=== PATIENT | female | born 1935 | race Caucasian/White ===

== ENCOUNTER 2023-11-14 09:00 | Observation (INO) | payer MEDICARE, SELFPAY ==
[2023-11-14 09:01] VITALS: BP 117/74; PULSE 83; RESP 16; TEMP 36.6; O2SAT 95; BMI 23.3
--- NOTE | 2023-11-14 09:22 | EX.ED.DYSGE1 ---
HPI History of Present Illness Chief Complaint: Other, Pain/Inj Detail of Chief Complaint: I hurt all over, and I fear that you said be home because there is nothin Informant: patient Onset/Context/Timing Onset: Days and Weeks Timing: Continuous Quality: Pain Location: Total body Current Severity: Mild Maximum Severity: Severe Worsened by: Nothing Relieved by: Nothing Associated Symptoms Associated Symptoms: Difficulty performing activities of daily living Narrative Narrative: patient is a 88-year-old woman. She is seen by Dr. Martino for pain management. She is on Percocet. When asked why she was prescribed Percocet patient told me how many 5 mg tablets she takes per day. She was asked specifically what her diagnosis is and she could not answer my question. Patient is an 88-year-old woman with history of hypothyroidism, peptic ulcer disease, hypertension who has lived alone for the past 3 years. Patient states he is only able to clean her house once every 2 weeks because of the pain. She has not been eating well. She states she awakes every 2 hours. She does admit to weight loss. She states she is lost a couple of pounds. Patient began to cry and states her greatest fear is that I would tell her there is nothing wrong and would send her home. Patient was prescribed Cymbalta by Dr. Martino. She discontinued this 1 week ago. Prior similar symptoms: Yes Recent Illness/Hospitalization: No [facility] PEND[facility] S[facility] TO [facility] Medical History (Updated 11/14/23 @ 12:[address] Srikanth Ocampo MD) Peptic ulcer disease Hypothyroidism Hypertension Chronic pain Home Medications ?Medication ?Instructions ?Recorded ?Last Taken ?Type Ranitidine [Zantac] 150 mg PO DAILY 12/19/13 Unknown History amlodipine 2.5 mg tablet 2.5 mg PO DAILY 12/19/13 Unknown History amoxicillin 500 mg capsule 500 mg PO Q8H 3 days 12/19/13 Unknown Rx cholecalciferol (vitamin D3) 25 1,000 unit PO DAILY 12/19/13 Unknown History mcg (1,000 unit) tablet (Vitamin D3) fluoxetine 20 mg capsule 20 mg PO BID 12/19/13 Unknown History levothyroxine 75 mcg tablet 75 mcg PO DAILY 12/19/13 Unknown History (Levoxyl) losartan 25 mg tablet 25 mg PO DAILY 12/19/13 Unknown History Allergy/AdvReac Type Severity Reaction Status Date / Time No Known Allergies Allergy Verified 12/19/13 19:33 Social History (Updated 11/14/23 @ 09:[address] Srikanth Ocampo MD) household members: none Smoking Status: Never smoker substance use type: does not use ROS ROS ED Constitutional Constitutional ED: Reports chills and weight loss; Denies fever(s), subjective or sweats Eyes Eyes: Denies blurry vision, change in vision or diplopia ENT ENT ED: Denies ear pain, rhinorrhea or sore throat Cardiovascular Cardiovascular: Denies chest pain or palpitations Respiratory/Chest Respiratory/Chest: Denies cough, dyspnea or dyspnea on exertion Gastrointestinal Gastrointestinal: Denies abdominal pain, nausea or vomiting Genitourinary Genitourinary ED: Denies dysuria, hematuria or urinary frequency Musculoskeletal Musculoskeletal: Denies back pain or neck pain Neurologic Neurologic: Reports weakness; Denies paresthesias Psychiatric Psychiatric: Reports anxiety and depression; Denies suicidal ideation Endocrine Endocrinology: Reports cold intolerance; Denies heat intolerance Hematologic/Lymphatic Hematologic/Lymphatic: Reports systems reviewed and no addt'l complaints, except as documented EXAM Physical Exam Const Vital Signs: 11/14/23 09:01 11/14/23 11:00 Temperature 97.8 F Temperature Source Oral Pulse Rate 83 Respiratory Rate 16 Blood Pressure 117/74 121/84 H Blood Pressure Mean 88 96 Pulse Ox 95 Oxygen Delivery Method Room Air Positive well nourished and well developed General Appearance ED: well developed and NAD; Negative for pallor HEENT Reports dry mucous membranes HEENT Narrative: Head is atraumatic and normocephalic. Ears normal. Nares patent. Mouth ED: Yes dry mucous membranes Mouth: dry mucous membranes Eyes PERRL and EOMs intact bilaterally General Eye ED: Negative for pale conjunctiva or scleral icterus Neck no lymphadenopathy, supple and no JVD Chest Wall inspection of chest normal and palpation of chest normal Resp normal respiratory effort and clear to auscultation bilaterally Cardio regular rate, regular rhythm, S1 normal heart sound, S2 normal heart sound and no murmurs GI normal to inspection, nondistended, normoactive bowel sounds, non-tender, non-distended and no masses; Negative for hepatosplenomegaly Back/Spine no CVA tenderness Back/Spine Narrative: Inspection of the back is normal. Patient recently had x-rays which were unremarkable. Extremity normal to inspection Neuro oriented x3, CN's II-XII intact bilaterally and no sensory deficits noted Sensorium / Orientation: alert Motor Exam: strength 5/5 throughout Psych Mood & Affect: depressed and tearful Skin no rashes or lesions noted, no wounds and No skin turgor normal General Skin Exam: Negative for jaundice or pallor MDM MDM MDM Narrative Medical decision making narrative: Suspect patient is depressed. Her depression is worse due to noncompliance and no support system. Will obtain case management evaluation. Since she has hypothyroidism will obtain TSH since level has not been checked for some time based on review of prior records. Blood work was also obtained to assess for any metabolic or infectious etiology of her symptoms. My opinion this is all related to depression. History & Record Review Additional record(s) reviewed:: Prior outpatient record and Prior ED visit Lab Data Attestation: I reviewed the patient's lab results. Lab results narrative: CBC is remarkable for mild anemia with normal indices. Basic metabolic panel is remarkable slight elevation BUN/creatinine of 26 and 1.23. Glucose is slightly elevated 115 with a normal CO2 and intact anion gap. TSH is normal. UA reveals evidence of infection. Patient has 50-100 WBCs and 1+ bacteria. There is no epithelial cells noted. There is also ketones noted. This would not explain her symptoms. Labs: Laboratory Results - last 24 hr 11/14/23 11/14/23 09:30 10:49 WBC 9.3 RBC 3.90 L Hgb 11.8 L Hct 36.9 L MCV 94.6 MCH 30.3 MCHC 32.0 RDW Std Deviation 44.3 H RDW Coeff of [place]agar 12.7 Plt Count 180 MPV 9.4 Immature Gran % (Auto) 0.500 Neut % (Auto) 72.4 H Lymph % (Auto) 18.2 L [place] % (Auto) 8.5 Eos % (Auto) 0.2 Baso % (Auto) 0.2 Absolute Neuts (auto) 6.7 Absolute Lymphs (auto) 1.68 Nucleated RBC % 0 Sodium 132 L Potassium 3.9 Chloride 101 Carbon Dioxide 24.0 Anion Gap 7 BUN 26 H Creatinine 1.23 H Estim Creat Clear Calc 23.15 Est GFR (MDRD) Af Amer 53 L Est GFR (MDRD) Non-Af 44 L BUN/Creatinine Ratio 21.1 H Glucose 115 H Calcium 10.1 TSH 1.820 Urine Color Yellow Urine Clarity Clear Urine pH 6.0 Ur Specific R[place] 1.010 Urine Protein 30 H Urine Glucose (UA) Normal Urine Ketones 15 H Urine Occult Blood 25 H Urine Nitrite Negative Urine Bilirubin Negative Urine Urobilinogen Normal Ur Leukocyte Esterase 100 H Urine RBC 0 SEEN Urine WBC 50-100 SEEN Ur Squamous Epith Cells 0 SEEN Urine Bacteria 1+ Urine Mucus 0 SEEN Management Discussion w/another healthcare provider: optical goods worker/Case management (Case management is in agreement patient is depressed. They are concerned for her safety going home alone. They discussed hospice, apparently consult was placed by Saul Hdz in May. Patient is unwilling over hospice care since that time. Patient's October 14 3 years ago. Appare) Treatment and Re-Evaluation :: Since patient's creatinine clearance is greater than 30 there is no need for dose adjustment of Bactrim. Since this is an uncomplicated UTI treatment is 3 to 5 days. Patient received her first dose in the emergency department. Anthony from case management is present reviewing her chart. (2299) Discharge Plan Triage Chief Complaint: Other, Pain/Inj ED Provider: Srikanth Ocampo Dx/Rx/DC Orders Clinical Impression: Major depression, Chronic pain, Hypertension, Hypothyroidism, Acute cystitis, Difficulty in walking Instructions: Chronic Pain Therapies Mind Body, ED Depression, ED Cystitis Female Adult Prescriptions: No Action amlodipine 2.5 MG tablet 2.5 mg PO DAILY levothyroxine [Levoxyl] 75 MCG tablet 75 mcg PO DAILY losartan 25 MG tablet 25 mg PO DAILY fluoxetine 20 MG capsule 20 mg PO BID cholecalciferol (vitamin D3) [Vitamin D3] 1,000 UNIT tablet 1,000 unit PO DAILY Ranitidine [Zantac] 150 MG tablet 150 mg PO DAILY amoxicillin 500 MG capsule 500 mg PO Q8H 3 Days 0RF Primary Care Provider: Madeline Kuhn Referrals: NOT,DEFINED [Non-Staff] - Print Language: Cypriot Disposition Disposition: Acute Care Hospital [facility]
[2023-11-14 09:46] LABS: Absolute Lymphocyte Count 1.68 X10^3/uL (0.83-4.51); Absolute Neutrophil Count 6.7 X10^3/uL (2.0-7.7); Basophil# 0.02 X10^3/uL; Basophil% 0.2 % (0-1); Eosinophil# 0.02 X10^3/uL; Eosinophils% 0.2 % (0-5); Hematocrit 36.9 % (37-47); Hemoglobin 11.8 g/dL (12.0-15.0); Lymphocyte # 1.68 X10^3/ul (0.83-4.51); Lymphocyte % 18.2 % (19-41); Mean Corpuscular Hgb 30.3 pg (27.0-32.0); Mean Corpuscular Volume 94.6 fL (81-99); Mean Platelet Vol. 9.4 fl (6.2-12.0); Monocyte# 0.79 X10^3/uL; Monocyte% 8.5 % (0-10); NRBC Flagged by Analyzer 0 % (0-5); Neutrophil # 6.69 X10^3/uL (2.7-7.7); Neutrophil % 72.4 % (47-70); Platelet Count 180 K/mm3 (150-450); RBC Distribution Width CV 12.7 % (11.6-14.6); RBC Distribution Width SD 44.3 fl (35.1-43.9); White Blood Count 9.3 K/mm3 (4.4-11.0)
[2023-11-14 10:05] LABS: Anion Gap 7 (5-15); BUN 26 mg/dL (7-18); BUN/Creat Ratio 21.1 RATIO (10-20); Calcium,Total 10.1 mg/dL (8.5-10.1); Chloride 101 mmol/L (98-107); Creatinine, Serum 1.23 mg/dL (0.55-1.02); EST Glomerular Filtration Rate 44 mL/min (>60); Est Glom Filt Rate - Afr Amer 53 mL/min (>60); Estimated Creatinine Clearance 23.15 ml/min; Glucose 115 mg/dL (74-106); Potassium 3.9 mmol/L (3.5-5.1); Sodium Level 132 mmol/L (136-145)
[2023-11-14 11:00] VITALS: BP 121/84
[2023-11-14 11:01] LABS: Mucous, Urine 0 SEEN /hpf (<or=2+); Red Blood Cells-Urine 0 SEEN /hpf (0-5); Squamous Epithelial Cells - UA 0 SEEN /hpf (5-10)
[2023-11-14 11:04] LABS: Color, Urine Yellow (Yellow); Glucose, Dipstick Normal (Normal); Ketone-Dipstick 15 mg/dl (Negative); Leukocyte Esterase-Dipstick 100 /ul (Negative); Nitrite-Dipstick Negative (Negative); Occult Blood-Urine 25 /ul (Negative); Protein-Dipstick 30 mg/dl (Negative); Urine Bilirubin Dipstick Negative (Negative); Urine Clarity Clear (Clear); Urine Urobilinogen Normal (Normal)
[2023-11-14 11:16] LABS: Bacteria 1+ /hpf (None Seen); White Blood Cells 50-100 SEEN /hpf (0-5)
[2023-11-14] MEDS: Smz/Tmp Ds Tablet 1 TABLET PO (12:54)
--- NOTE | 2023-11-14 12:59 | PCM.HP.STD ---
HPI - General General Date of Admission: 11/14/23 Date of Service: 11/14/23 Chief Complaint: Chronic diffuse pain all over, getting worse. Inability to do ADL HPI Narrative GIANNI ORDOÑEZ, is a 88 F with history of chronic pain on opioids since last part of 2022, follows Dr. Martino came to ED for severe worsening of pain for last 3 days. Son also present in the patient room. Her chronic pain started with shoulder pain January 2023 which was managed by PCP with intermittent low-dose opioids but when she required opioids in chronic and persistent was referred to Dr. Martino. She refilled 60 tablets of Percocet on 27 October and she still has few pills left. She came to ER because she was requiring more pill over the weekend and she was afraid that she will run out of it. No acute issues of fever, burning micturition, fall. As per son she has severe pain and could not move last weekend for 1 to 2 days and then she felt little better and was able to move on past Monday. [facility] Medical History Anxiety Depression Non-smoker Pituitary abnormality Migraines Peptic ulcer disease Hypothyroidism Hypertension Chronic pain Home Medications ?Medication ?Instructions ?Recorded ?Last Taken ?Type losartan 25 mg tablet 25 mg PO DAILY 12/19/13 11/14/23 History amlodipine 5 mg tablet 5 mg PO DAILY 11/14/23 11/14/23 History levothyroxine 50 mcg tablet 50 mcg PO SUTUTHSA 11/14/23 11/14/23 History levothyroxine 50 mcg tablet 75 mcg PO MOWEFR 11/14/23 11/13/23 History oxybutynin chloride 5 mg 5 mg PO DAILY 11/14/23 11/14/23 History tablet,extended release 24 hr oxycodone-acetaminophen 5 mg-325 1 tab PO BID PRN pain 11/14/23 11/14/23 History mg tablet pantoprazole 20 mg tablet,delayed 20 mg PO DAILY 11/14/23 11/14/23 History release Allergy/AdvReac Type Severity Reaction Status Date / Time No Known Allergies Allergy Verified 12/19/13 19:33 Surgical History H/O spinal fusion History of parathyroid surgery History of appendectomy Social History household members: none Smoking Status: Never smoker substance use type: does not use ROS ROS Narrative Constitutional: Reports fatigue and weakness. No fever. HEENT: Reports systems reviewed and no addt'l complaints, except as documented Respiratory/Chest: No acute shortness of breath or respiratory distress or wheezing. CVS: No chest pain anginal-like symptoms. Gastrointestinal: Denies coffee ground emesis, hematemesis or vomiting Genitourinary: Denies burning urination or new urinary tract symptoms Musculoskeletal: Worsening of bone and joint pain diffuse over the weekend. No acute injury. No fall. Neurologic: Denies seizure-like symptoms. skin: No ulcer. No rash Endocrinology: Reports systems reviewed and no addt'l complaints, except as documented Hematologic/Lymphatic: Reports systems reviewed and no addt'l complaints, except as documented Rest 14 ROS are negative except as mentioned in HPI Vital Signs Vital Signs Vital Signs: 11/14/23 09:01 11/14/23 11:00 Temperature 97.8 F Temperature Source Oral Pulse Rate 83 Respiratory Rate 16 Blood Pressure 117/74 121/84 H Blood Pressure Mean 88 96 Pulse Ox 95 Oxygen Delivery Method Room Air Weight Weight: 108 lb 0.424 oz Body Mass Index (BMI) 23.3 Results Lab / Micro Data 11/14/23 09:30 11/14/23 09:30 Labs: Laboratory Results - last 24 hr 11/14/23 09:30: WBC 9.3, RBC 3.90 L, Hgb 11.8 L, Hct 36.9 L, MCV 94.6, MCH 30.3, MCHC 32.0, RDW Std Deviation 44.3 H, RDW Coeff of Sagar 12.7, Plt Count 180, MPV 9.4, Immature Gran % (Auto) 0.500, Neut % (Auto) 72.4 H, Lymph % (Auto) 18.2 L, [place] % (Auto) 8.5, Eos % (Auto) 0.2, Baso % (Auto) 0.2, Absolute Neuts (auto) 6.7, Absolute Lymphs (auto) 1.68, Nucleated RBC % 0, Sodium 132 L, Potassium 3.9, Chloride 101, Carbon Dioxide 24.0, Anion Gap 7, BUN 26 H, Creatinine 1.23 H, Estim Creat Clear Calc 23.15, Est GFR (MDRD) Af Amer 53 L, Est GFR (MDRD) Non-Af 44 L, BUN/Creatinine Ratio 21.1 H, Glucose 115 H, Calcium 10.1, TSH 1.820 11/14/23 10:49: Urine Color Yellow, Urine Clarity Clear, Urine pH 6.0, Ur Specific [place] 1.010, Urine Protein 30 H, Urine Glucose (UA) Normal, Urine Ketones 15 H, Urine Occult Blood 25 H, Urine Nitrite Negative, Urine Bilirubin Negative, Urine Urobilinogen Normal, Ur Leukocyte Esterase 100 H, Urine RBC 0 SEEN, Urine WBC 50-100 SEEN, Ur Squamous Epith Cells 0 SEEN, Urine Bacteria 1+, Urine Mucus 0 SEEN Assessment & Plan Assessment/Plan (1) Impaired mobility and ADLs: (2) Difficulty in walking: PLAN: Plan This is a 88-year-old female with chronic bone and joint pain with acute worsening in last 3 days 1. Acute worsening of chronic musculoskeletal pain with impaired ADL/mobility: Patient is nondescriptive to any particular region of pain but she says all over. Patient admitted to [facility] floor. IV fluid, pain medication ordered. PT OT and case management specialist consult for discharge planning. 2. Abnormal UA/asymptomatic bacteriuria: Patient denies burning micturition or acute or new lower urinary tract symptoms. UA shows LE 100, RBC 0, WBC 5200 cells, bacteria. Urine culture pending. Low suspicion for UTI therefore antibiotic is not started 3. Anxiety and major depression 4. Hypertension: Blood pressure is controlled 122/55, 127/66. 5. Hypothyroidism: On levothyroxine. 6.Mild hyponatremia with increased creatinine. CKD stage IV: Creatinine 1.23. Estimated creatinine clearance 23 mL/min. 90 fluid normal saline + KCl DVT prophylaxis: Lovenox 30 mg subcu daily ordered as per creatinine clearance. Living will/advanced directive/end of life care: Patient does her son present in the room is power of prosecuting attorney for him. Have living will or advanced directive. After discussion of benefits/risks procedures involved with full code, DNR CC arrest and DNR CC, the patient and her son opted for DNR CC arrest with going to be Patient doesn't want artificial life support including intubation, tube feed, ventilator and/chest compression, central venous catheter, vasopressor and DC shock if needed Total time spent in [id number] encounter in discussion of advanced directive 17 minutes. Laboratory Results 11/14/23 09:30: WBC 9.3, RBC 3.90 L, Hgb 11.8 L, Hct 36.9 L, MCV 94.6, MCH 30.3, MCHC 32.0, RDW Std Deviation 44.3 H, RDW Coeff of Sagar 12.7, Plt Count 180, MPV 9.4, Immature Gran % (Auto) 0.500, Neut % (Auto) 72.4 H, Lymph % (Auto) 18.2 L, [place] % (Auto) 8.5, Eos % (Auto) 0.2, Baso % (Auto) 0.2, Absolute Neuts (auto) 6.7, Absolute Lymphs (auto) 1.68, Nucleated RBC % 0, Sodium 132 L, Potassium 3.9, Chloride 101, Carbon Dioxide 24.0, Anion Gap 7, BUN 26 H, Creatinine 1.23 H, Estim Creat Clear Calc 23.15, Est GFR (MDRD) Af Amer 53 L, Est GFR (MDRD) Non-Af 44 L, BUN/Creatinine Ratio 21.1 H, Glucose 115 H, Calcium 10.1, TSH 1.820 11/14/23 10:49: Urine Color Yellow, Urine Clarity Clear, Urine pH 6.0, Ur Specific [place] 1.010, Urine Protein 30 H, Urine Glucose (UA) Normal, Urine Ketones 15 H, Urine Occult Blood 25 H, Urine Nitrite Negative, Urine Bilirubin Negative, Urine Urobilinogen Normal, Ur Leukocyte Esterase 100 H, Urine RBC 0 SEEN, Urine WBC 50-100 SEEN, Ur Squamous Epith Cells 0 SEEN, Urine Bacteria 1+, Urine Mucus 0 SEEN Charges/Coding Visit Charges Inpatient E&M: 96894 Init Hosp L3 Procedures Hospitalists Procedures: 31469 Advncd Care Plan 30 Min
[2023-11-14 13:00] VITALS: BP 117/74; PULSE 83
--- NOTE | 2023-11-14 13:15 | CM.ED ---
Social Work Reason for consult: Mental Health Referral Source: Dr. Ocampo Met with patient in room, introducing to self and social work role. MARIO Soria also present during conversation. Informant(s): Patient herself; son Rudy presented to room at end of conversation. Medical Providers: Saul Hdz, PCP; (pain management) Marital/Social History: after 55 plus years of marriage. 10.14.2020. 2 children: Rudy (lives in [place]) and Parker (lives in [place]). Rudy comes up every Monday and helps with groceries, checks in on patient. Patient was the oldest of 5 children, losing last sibling 2 weeks ago. Living Situation: Alone, 2 story home with patient's cat.. There is a stair lift to the second floor. Patient normally drives self. Cooks for self. Has someone to clean every 2 weeks. Support/Resources: Son who lives in [place] is described as supportive; tenuous relationship with Parker who is in [place]. Patient has neighbors, but reports is mostly alone. History: None Education and Employment History: Has a masters degree in [place], used to work as a teacher. Used to work doing [employer] as well as the [employer]. Mental Health Treatment/History: Patient reports history of depression treated with Prozac for years, which worked but then stopped. Changed to another antidepressant/cannot remember the name. Recently placed on Cymbalta by Dr. Li for pain management, but stopped this medication about a week ago. No inpatient mental treatment. Reports has never really contemplated suicide and states belief would not do it right. Shares that one of patient's sister attempted suicide by overdose but ended up sick in the hospital. Denies access to lethal means, denies any stockpiles of medications. Triggers/Stressors to mental health: Increased diffuse pain since Monday. Patient's 3 years ago in October. Prior to the 's , the had stockpiled toiletries, such as patient just used the last of the toilet paper the had purchased 3 years ago. Patient reports belief that had always thought by the time these times ran out patient would be ready to . Patient admits to being lonely, a sister just 2 weeks ago and this has increased reflection about patient's life. Patient reports to be bored at home. Asked this radio script writer if due to the pain patient is ready for hospice. Reports PCP made a referral to hospice/palliative care in May, and was told if wanted to sign up for hospice at that time patient could but never did. Coping Skills: Likes to read, and after ' printed a list of all [employer] Prize winners, and has been going through those books. Normally reads 50-60 books in a year. Risk to Self/Others: No history of violence reported or shared, though patient describes herself as an angry person, yelling at her cat all the time. Reports does not feel angry or irritable when around others. No thoughts of harm to others. Denies any current or recent thoughts of suicide, intent to , or planning for suicide. During assessment patient did ask about hospice, and informed this radio script writer there is a different between being tired and okay with dying versus wanting to actively take one's life. Patient denies wanting to take her own life. Orientation: Oriented to person, place, time, situation. Memory: Good and intact Appearance/General Behavior: clean, disheveled in bed in hospital gown. Mood/Affect: Tearful, depressed, anxious Communication Pattern: responds to questions, directable, logical Thought Process: appropriate, no A/V hallucinations General Intellectual Functioning:?? Above Average Judgment: good Insight: fair Assessment: Patient talkative and receptive to social work visit. Patient immediately voiced to licensed clinical social worker that the ED doctor wants patient to get a psychiatrist. Patient then became talkative about current perceived issues which are surrounded around patient's issues of pain. Patient share she woke up on Monday and could hardly move. Patient reports this was a significant change in functional status. Reports is prescribed 5mg of Percocet two times a day and has been taking 3-4 times a day since this pain has increased. Patient reports worry about how to manage pain as current regimen does not appear to be working, and patient will be out of what she is prescribed prior to appointment with Dr. Li. Patient also describes that has been having hot flashes, gets cold/clammy, and then has the chills. Patient shares that found this can be a side effect of Cymbalta so a reason patient stopped this. Also found on the internet these symptoms could be a sign of someone dying. Patient asked social work if patient is ready for hospice, and shared that her PCP made a referral back in May 2023. Patient talked of some efforts patient has done to check on pricing of assisted living, and from conversation appears to be in the contemplation phase of moving out of home and going into assisted living. This radio script writer did attempt education about how physical and emotional health issues can go hand in hand, can exacerbate each other. Broached that patient has had some losses lately, which could also be impacting how patient is feeling too. Note, during SW intervention, patient tried to move and started to cry out in pain, appeared to move slowly and face constricted showing what appeared to be pain cues. SW called the call light for staff assist in helping patient to move. Collaborated with Dr. Ocampo. Acknowledged that patient does appear to have stressors and depression which would benefit from outpatient mental health follow up. Both this radio script writer and provider in agreement patient not at point of need hospitalization. Discussed concern with provider that patient lives alone, has limited support in this area to have help in the home, and in room with social work appeared to have difficulty moving. Discussed patient going to assisted living or nursing facility from hospital for continued management of pain and possible therapy to to help with mobility. Patient has [employer], which does not require a 3 day stay but does require precert, should patient need or would benefit from PT/OT at discharge. Discussed safety concerns about patient returning home alone, even with intermittent HHC, in conjunction with how patient presented in room with ability to move. This radio script writer, Estella and Dr. Ocampo met with patient. Discussed having patient stay at hospital for further evaluation of pain control and therapy evaluations. Broached nursing facility, assisted living, and hospice/palliative care consult (as patient states this was initiated by Saul GARCIA in May of this year). Patient's son arrived to the room, as was called by a neighbor of the patient's. Son Rudy reports patient has been having pain for a long time now, and patient's change in status was significant on Monday. Son concerned about patient returning home alone right now, and expressed feeling hospitalization would be the safest at this moment. Much emotional support provided to patient this date. Plan: Overnight stay for PT/OT evaluation, determine possible need for NF versus assisted living. Once settled with physical care, would benefit from referral to outpatient counseling/suppor wherever patient lands for her physical care component. -CRUZ Salu
--- NOTE | 2023-11-14 13:30 | NURSING ---
PCU OBS TERELETSKY HYPERTENSIVE URGENCY, ENDORGAN DYSPFUNCTION, HALLUCINATIONS
[2023-11-14 13:44] VITALS: BP 122/55; PULSE 74; RESP 17; TEMP 36.8; O2SAT 95
--- NOTE | 2023-11-14 14:00 | CASEMGMT ---
Social Work Handoff to Tata CISNEROS regarding social work intervention in the ED. Refer to prior ED SW documentation this date for further details. Patient with reports of difficulty moving at home due to pain, lives alone and limited available support to assist. Social Work to follow. Plan: Await PT/OT results. Determine home vs assisted living vs retirement -CRUZ Saul
[2023-11-14 14:07] VITALS: BMI 22.0
[2023-11-14 14:12] VITALS: BP 127/66; PULSE 71; RESP 20; TEMP 36.9; O2SAT 94
[2023-11-14] MEDS: KCL 20MEQ in 0.9% NS 20 MEQ/1,000 ML IV.SOLN. 100 MEQ IV (16:11)
[2023-11-14] MEDS: 0.9% Saline Lock 10 ML Syringe IV (16:12)
[2023-11-14] MEDS: Enoxaparin 30 MG/0.3 ML Syringe SC (16:17)
[2023-11-14] MEDS: oxyCODONE 5 MG Tablet PO ×2 (16:17→21:04)
[2023-11-14 20:03] VITALS: BP 116/64; PULSE 89; RESP 15; TEMP 36.6; O2SAT 96
[2023-11-14] MEDS: Acetaminophen 500 MG Tablet 1000 MG PO (20:30)
[2023-11-14] MEDS: Senna/Docusate Sodium 1 Tablet 2 TABLET PO (21:05)
[2023-11-15] MEDS: oxyCODONE 5 MG Tablet PO ×5 (02:24→22:08)
[2023-11-15] MEDS: KCL 20MEQ in 0.9% NS 20 MEQ/1,000 ML IV.SOLN. 100 MEQ IV (02:24)
[2023-11-15 02:27] VITALS: BP 113/62; PULSE 63; RESP 15; TEMP 36.6; O2SAT 98
[2023-11-15] MEDS: Acetaminophen 500 MG Tablet 1000 MG PO ×3 (06:36→22:07)
[2023-11-15 07:26] LABS: Absolute Lymphocyte Count 0.83 X10^3/uL (0.83-4.51); Absolute Neutrophil Count 5.5 X10^3/uL (2.0-7.7); Basophil# 0.04 X10^3/uL; Basophil% 0.5 % (0-1); Eosinophil# 0.05 X10^3/uL; Eosinophils% 0.7 % (0-5); Hematocrit 36.5 % (37-47); Hemoglobin 11.6 g/dL (12.0-15.0); Lymphocyte # 0.83 X10^3/ul (0.83-4.51); Lymphocyte % 11.3 % (19-41); Mean Corp Hgb Conc 31.8 g/dL (32-36); Mean Corpuscular Hgb 30.2 pg (27.0-32.0); Mean Corpuscular Volume 95.1 fL (81-99); Mean Platelet Vol. 9.9 fl (6.2-12.0); Monocyte# 0.83 X10^3/uL; Monocyte% 11.3 % (0-10); NRBC Flagged by Analyzer 0 % (0-5); Neutrophil # 5.54 X10^3/uL (2.7-7.7); Neutrophil % 75.7 % (47-70); Platelet Count 175 K/mm3 (150-450); RBC Distribution Width CV 12.7 % (11.6-14.6); RBC Distribution Width SD 44.4 fl (35.1-43.9); Red Blood Count 3.84 M/mm3 (4.2-5.4); White Blood Count 7.3 K/mm3 (4.4-11.0)
[2023-11-15 07:49] LABS: Anion Gap 4 (5-15); BUN 18 mg/dL (7-18); Calcium,Total 9.5 mg/dL (8.5-10.1); Chloride 108 mmol/L (98-107); Creatinine, Serum 0.94 mg/dL (0.55-1.02); EST Glomerular Filtration Rate 59 mL/min (>60); Est Glom Filt Rate - Afr Amer 72 mL/min (>60); Estimated Creatinine Clearance 30.29 ml/min; Glucose 97 mg/dL (74-106); Potassium 4.3 mmol/L (3.5-5.1); Sodium Level 136 mmol/L (136-145)
[2023-11-15 08:30] VITALS: O2SAT 96
[2023-11-15 09:53] VITALS: BP 90/79; PULSE 75; RESP 16; TEMP 36.4; O2SAT 97
[2023-11-15 11:13] VITALS: BP 119/53; PULSE 70; RESP 16; TEMP 36.4; O2SAT 96
--- NOTE | 2023-11-15 11:48 | CASEMGMT ---
Discharge Planning A list of?SNF providers including quality and resource use data and consistent with the patient's preferred geographic region, medical needs, and insurance network was created in [facility] [facility].? This list was provided to the SW. Joselyn Suárez Discharge Planning Asst.
--- NOTE | 2023-11-15 14:38 | PCM.PN.HOSP ---
Reason for Visit Reason for Visit: Diagnoses Difficulty in walking, not elsewhere classified (11/14/23) Other reduced mobility (11/14/23) Other specified health status (11/14/23) Objective Data Objective Data Vital Signs: Vital Signs Temp Pulse Resp BP Pulse Ox O2 Del Method 97.5 F L 70 16 119/53 L 96 Room Air 11/15/23 11:13 11/15/23 11:13 11/15/23 11:13 11/15/23 11:13 11/15/23 11:13 11/15/23 13:10 Oxygen Delivery Method Room Air Weight: 101 lb 13.657 oz Body Mass Index (BMI) 22.0 Intake & Output: Intake and Output for Last 24 Hours 11/13/23 11/14/23 11/15/23 23:59 23:59 23:59 Intake Total 150 / 150 2250 / 2250 Balance 150 / 150 2250 / 2250 Lab / Micro Data 11/15/23 06:15 11/15/23 06:15 Labs: Laboratory Results - last 24 hr 11/15/23 06:15: WBC 7.3, RBC 3.84 L, Hgb 11.6 L, Hct 36.5 L, MCV 95.1, MCH 30.2, MCHC 31.8 L, RDW Std Deviation 44.4 H, RDW Coeff of Sagar 12.7, Plt Count 175, MPV 9.9, Immature Gran % (Auto) 0.500, Neut % (Auto) 75.7 H, Lymph % (Auto) 11.3 L, Dodge % (Auto) 11.3 H, Eos % (Auto) 0.7, Baso % (Auto) 0.5, Absolute Neuts (auto) 5.5, Absolute Lymphs (auto) 0.83, Nucleated RBC % 0, Sodium 136, Potassium 4.3, Chloride 108 H, Carbon Dioxide 24.0, Anion Gap 4 L, BUN 18, Creatinine 0.94, Estim Creat Clear Calc 30.29, Est GFR (MDRD) Af Amer 72, Est GFR (MDRD) Non-Af 59 L, BUN/Creatinine Ratio 19.0, Glucose 97, Calcium 9.5 Micro: Microbiology 11/14/23 10:49 Urine, Clean Catch Urine Culture - Final Mixed Gram Positive Organisms Physical Exam Narrative Seen and examined. Patient complained of pain all over but could not pinpoint any specific location. Actually she is frustrated but every time she has to say pain all over and providers asking about a specific location. Physical exam General: Alert, Oriented x3, Cooperative HEENT: Atraumatic, PERRLA, EOMI, Normocephalic Oral: No Gingival or Mucosal Lesions/ Ulcerations Neck: Supple, No JVD, Negative Carotid Bruits Chest wall/Lungs: Air entry diminished in bilateral lung bases. No crepitation/rhonchi Cardiovascular: Regular rate, Regular Rhythm, Normal S1, Normal S2, No M/G/R Abdomen: Bowel Sounds Present, Soft, Non Tender, Non-Distended : No dysuria. No renal angle tenderness. No suprapubic tenderness. Extremities: No edema, Capillary Refill Less than 3 Seconds Skin: No rashes, No breakdown Musculoskeletal: Mild nonspecific muscle and joint tenderness. No acute tenderness. Neurological: Cranial nerves II-XII grossly intact, DTR 2+/4. No acute focal neurological deficit. Psych/Mental Status: Flat affect. Assessment & Plan Assessment/Plan (1) Impaired mobility and ADLs: (2) Difficulty in walking: PLAN: Plan This is a 88-year-old female with chronic bone and joint pain with acute worsening in last 3 days 1. Acute worsening of chronic musculoskeletal pain with impaired ADL/mobility: Patient is nondescriptive to any particular region of pain but she says all over. Patient admitted to [facility] floor. IV fluid, pain medication ordered. PT OT and top case assembler consult for discharge planning. 11/14: Patient can sit up from the bed but she still complain of pain all over. No acute issues overnight. 2. Abnormal UA/asymptomatic bacteriuria: Patient denies burning micturition or acute or new lower urinary tract symptoms. UA shows LE 100, RBC 0, WBC 5200 cells, bacteria. Urine culture pending. Low suspicion for UTI therefore antibiotic is not started 11/14 urine culture shows mixed gram-positive organisms less than 1000 colonies. UTI ruled out. 3. Anxiety and major depression 11/14: I think patient is depressed with abnormal presentation/perception of pain. Started on BuSpar 10 mg once daily in the morning and mirtazapine 7.5 mg nightly. 4. Hypertension: Blood pressure is controlled 122/55, 127/66. 11/14: BP is controlled 5. Hypothyroidism: On levothyroxine. 6.Mild hyponatremia with increased creatinine. CKD stage IV: Creatinine 1.23. Estimated creatinine clearance 23 mL/min. 90 fluid normal saline + KCl 11/14: Serum sodium 136 mmol/L. It is corrected. Mild hyponatremia resolved. DVT prophylaxis: Lovenox 30 mg subcu daily ordered as per creatinine clearance. Living will/advanced directive/end of life care: Patient does her son present in the room is power of title attorney for him. Have living will or advanced directive. After discussion of benefits/risks procedures involved with full code, DNR CC arrest and DNR CC, the patient and her son opted for DNR CC arrest with going to be Patient doesn't want artificial life support including intubation, tube feed, ventilator and/chest compression, central venous catheter, vasopressor and DC shock if needed Laboratory Results 11/14/23 09:30: WBC 9.3, RBC 3.90 L, Hgb 11.8 L, Hct 36.9 L, MCV 94.6, MCH 30.3, MCHC 32.0, RDW Std Deviation 44.3 H, RDW Coeff of Sagar 12.7, Plt Count 180, MPV 9.4, Immature Gran % (Auto) 0.500, Neut % (Auto) 72.4 H, Lymph % (Auto) 18.2 L, Dodge % (Auto) 8.5, Eos % (Auto) 0.2, Baso % (Auto) 0.2, Absolute Neuts (auto) 6.7, Absolute Lymphs (auto) 1.68, Nucleated RBC % 0, Sodium 132 L, Potassium 3.9, Chloride 101, Carbon Dioxide 24.0, Anion Gap 7, BUN 26 H, Creatinine 1.23 H, Estim Creat Clear Calc 23.15, Est GFR (MDRD) Af Amer 53 L, Est GFR (MDRD) Non-Af 44 L, BUN/Creatinine Ratio 21.1 H, Glucose 115 H, Calcium 10.1, TSH 1.820 11/14/23 10:49: Urine Color Yellow, Urine Clarity Clear, Urine pH 6.0, Ur Specific [place] 1.010, Urine Protein 30 H, Urine Glucose (UA) Normal, Urine Ketones 15 H, Urine Occult Blood 25 H, Urine Nitrite Negative, Urine Bilirubin Negative, Urine Urobilinogen Normal, Ur Leukocyte Esterase 100 H, Urine RBC 0 SEEN, Urine WBC 50-100 SEEN, Ur Squamous Epith Cells 0 SEEN, Urine Bacteria 1+, Urine Mucus 0 SEEN Charges/Coding Visit Charges Inpatient E&M: 09175 Subs Hosp L2
--- NOTE | 2023-11-15 15:17 | CASEMGMT ---
Met with patient to complete HUMMEL form. HUMMEL form explained to patient who voiced understanding and signed form. Original form placed in pt?s chart and copy provided to patient. Joselyn Suárez, Discharge Planning Asst
[2023-11-15] MEDS: busPIRone 5 MG Tablet 10 MG PO (15:19)
[2023-11-15 15:24] VITALS: BP 104/90; PULSE 79; RESP 16; TEMP 36.6; O2SAT 96
[2023-11-15 20:05] VITALS: BP 134/71; PULSE 76; RESP 15; TEMP 37.2; O2SAT 98
[2023-11-16 02:00] VITALS: BP 105/57; PULSE 78; RESP 15; TEMP 37.1; O2SAT 97
[2023-11-16] MEDS: oxyCODONE 5 MG Tablet PO ×3 (02:44→11:34)
[2023-11-16] MEDS: Acetaminophen 500 MG Tablet 1000 MG PO ×2 (06:48→14:00)
[2023-11-16] MEDS: busPIRone 5 MG Tablet 10 MG PO (07:52)
[2023-11-16 09:07] VITALS: BP 96/72; PULSE 75; RESP 16; TEMP 36.8; O2SAT 97
--- NOTE | 2023-11-16 09:08 | CASEMGMT ---
Addendum entered by Sarah Navarro 11/16/23 14:55: PACO MCCALLUM into pt room, provided pt with transportation information SW gave on [employer] and [employer] transportation. Pt is aware that she would not be able to use [employer] for transport to Dr. Martino. Pt neighbor present and pt is agreeable to PACO MCCALLUM speaking to her in front of neighbor. Confirmed with pt that she is not interested in any antidepressant that was offered for homegoing. Pt denies any homegoing needs. She states she will call her PCP to refill rx that she needs in the next week or two. Pt son to transport her home as she does not have a duenas to get in, he does. Pt is ready for dc and states her neighbors are very supportive. Addendum entered by Sarah Navarro 11/16/23 13:06: Received notification from palliative that pt was referred in April but pt was not seen due to needing chronic snf pain management not due to a terminal illness, which palliative care cannot provide. Original Note: PACO MCCALLUM notified by [facility] that pt is active with Palliative Care. Email sent to Palliative Care to make aware pt was hospitalized.
--- NOTE | 2023-11-16 10:30 | CASEMGMT ---
Social Work SW met with pt to discuss discharge plans. Pt worked with therapy and was Mod Independent for ambulation, transfers and ADLs. Ongoing therapy not recommended. SW discussed with pt that she does not qualify for SNF stay. Discussed Assisted Living placement. SW explained AL services and that it is private pay. SW provided pt with a written list of area AL and with the pricing. Pt states she is not ready for AL at this time but is appreciative of resources. SW also spoke with pt regarding private duty help at home and list of private duty agencies provided. Pt states she feels like she can return home at this time. She does have a walker and a rollator available to her. SW broached the topic of depression and physician recommendation for outpt followup for mental health. Pt adamantly refusing to see a psychiatrist or counselor. SW did provide a list of area counselors and pt is accepting of information but does not feel this will be helpful to her. SW assisted pt in calling her son who states he will be coming to see patient and will transport her home. SW provided pt with transportation information. Plan: home alone. Pt has resources for private duty aids, assisted living and mental health counseling AMELIA Sidhu
--- NOTE | 2023-11-16 11:25 | PCM.DC ---
Discharge Instructions Diet Discharge Diet: No restrictions Activity Discharge Activity: Return to Normal Activity Weight Bearing Status: Weight bearing as tolerated Dressing / Incision Call your doctor if you observe: Fever of 101 or Higher, Coldness, Increased Pain, Numbness or Tingling, Change in Color, Inability to urinate, Inability to have a bowel movement, Using more than 1 pad per hour, Shortness of breath, Dizziness, Fainting spells, Swelling in the ankles, Chest pain, Prolonged hiccupping, Increased palpitations (irregular heartbeat) and Calf discomfort Follow Up Care When: IN 2 WEEKS Test Results: Test results from this visit will be discussed in further detail at your follow-up appointment, if applicable. Discharge Plan Admission Admit Date/Time: 11/14/23 12:58 Primary Reason for Your Visit: Nonspecific diffuse pain possible anxiety/mild depression. Attending Provider: Raman Lugo Primary Care Provider: Madeline Kuhn Consulting Providers: Tone Gao Instructions Patient Instructions: Chronic Pain Therapies Mind Body, ED Depression, ED Cystitis Female Adult Additional Instructions / Restrictions: Patient was offered antianxiety and antidepressant buspirone and Remeron but she declined it. She felt better when he started inpatient. Advised to follow-up with a psychiatrist Dr. Miller in 2 to 4 weeks Discharge Orders/Prescriptions Prescriptions: New acetaminophen 500 mg Tablet 1,000 mg PO Q8 PRN (Reason: PAIN 7-10) Qty: 0 0RF Rx Instructions: Advised hpmr-[id number] 1 g Q8 hourly as needed for moderate-severe pain sennosides-docusate sodium [Stimulant Laxative Plus] 8.6-50 mg Tablet 2 tab PO BID Qty: 0 0RF Rx Instructions: Edkx-mea-aeyewcy pain Continued losartan 25 MG tablet 25 mg PO DAILY amlodipine 5 mg tablet 5 mg PO DAILY levothyroxine 50 mcg tablet 75 mcg PO MOWEFR levothyroxine 50 mcg tablet 50 mcg PO SUTUTHSA pantoprazole 20 mg tablet,delayed release (DR/EC) 20 mg PO DAILY oxycodone-acetaminophen 5-325 mg tablet 1 tab PO BID PRN (Reason: pain) oxybutynin chloride 5 mg tablet extended release 24hr 5 mg PO DAILY Patient Comments: PT STATES SHE STOPPED FOR A COUPLE DAYS,BUT DID TAKE THIS MORNING Referrals / Follow Up: Madeline Kuhn, [facility] [employer] [facility] [Primary Care Provider] - Within 2 Weeks Beto Miller DO [Med Staff - Dry Cell Tester] - Within 2 Weeks NOT,DEFINED [Non-Staff] - Disposition Disposition (needs filled in before D/C Order can be placed): Home, Self Care
[2023-11-16 11:37] VITALS: BP 123/75; PULSE 67; RESP 16; TEMP 36.6; O2SAT 95
--- NOTE | 2023-11-16 14:21 | DS.PCM_ITS ---
Providers Date of Admission: 11/14/23 Date of Discharge: 11/16/23 Primary Care Physician: LUANNE Hartmann Reason For Visit: DIFFUSE PAIN ALL OVER Diagnosis Discharge Diagnosis (1) Impaired mobility and ADLs: Status: Acute Code(s): Z74.09 - Other reduced mobility; Z78.9 - Other specified health status (2) Difficulty in walking: Status: Acute Code(s): R26.2 - Difficulty in walking, not elsewhere classified Plan This is a 88-year-old female with chronic bone and joint pain with acute worsening in last 3 days 1. Acute worsening of chronic musculoskeletal pain with impaired ADL/mobility: Patient is nondescriptive to any particular region of pain but she says all over. Patient admitted to [facility] floor. IV fluid, pain medication ordered. PT OT and medical case manager consult for discharge planning. 11/15: Patient is still complaining of pain all over mainly on using shoulder girdle muscles in order to sit up. She feels better on Remeron which was started yesterday at night. Was evaluated by PT and 6 clicks mobility score 22. Recommended to go home alone. Advised to follow-up with pain management Dr. Martino in 1 to 2 weeks. She has enough supply of pain medication. I feel she might have fibromyalgia/depression. 2. Abnormal UA/asymptomatic bacteriuria: Patient denies burning micturition or acute or new lower urinary tract symptoms. UA shows LE 100, RBC 0, WBC 5200 cells, bacteria. Urine culture pending. Low suspicion for UTI therefore antibiotic is not started 11/15: Urine culture shows mixed gram-positive organisms therefore contamination. UTI ruled out. 3. Anxiety and major depression 11/15: Patient was started on Remeron and BuSpar while inpatient. She was offered low-dose Remeron prescription but states that she will follow-up with a psychiatrist. 4. Hypertension: Blood pressure is controlled 122/55, 127/66. 5. Hypothyroidism: On levothyroxine. 6. Mild hyponatremia with increased creatinine. CKD stage IV: Creatinine 1.23. Estimated creatinine clearance 23 mL/min. 90 fluid normal saline + KCl DVT prophylaxis: Lovenox 30 mg subcu daily ordered as per creatinine clearance. Living will/advanced directive/end of life care: Patient does her son present in the room is power of civil litigation attorney for him. Have living will or advanced directive. After discussion of benefits/risks procedures involved with full code, DNR CC arrest and DNR CC, the patient and her son opted for DNR CC arrest with going to be Patient doesn't want artificial life support including intubation, tube feed, ventilator and/chest compression, central venous catheter, vasopressor and DC shock if needed Total time spent in eyvv-sx-qzoo encounter in discussion of advanced directive 17 minutes. Laboratory Results 11/14/23 09:30: WBC 9.3, RBC 3.90 L, Hgb 11.8 L, Hct 36.9 L, MCV 94.6, MCH 30.3, MCHC 32.0, RDW Std Deviation 44.3 H, RDW Coeff of Sagar 12.7, Plt Count 180, MPV 9.4, Immature Gran % (Auto) 0.500, Neut % (Auto) 72.4 H, Lymph % (Auto) 18.2 L, Campbell % (Auto) 8.5, Eos % (Auto) 0.2, Baso % (Auto) 0.2, Absolute Neuts (auto) 6.7, Absolute Lymphs (auto) 1.68, Nucleated RBC % 0, Sodium 132 L, Potassium 3.9, Chloride 101, Carbon Dioxide 24.0, Anion Gap 7, BUN 26 H, Creatinine 1.23 H , Estim Creat Clear Calc 23.15, Est GFR (MDRD) Af Amer 53 L, Est GFR (MDRD) Non- Af 44 L, BUN/Creatinine Ratio 21.1 H, Glucose 115 H, Calcium 10.1, TSH 1.820 11/14/23 10:49: Urine Color Yellow, Urine Clarity Clear, Urine pH 6.0, Ur Specific [place] 1.010, Urine Protein 30 H, Urine Glucose (UA) Normal, Urine Ketones 15 H, Urine Occult Blood 25 H, Urine Nitrite Negative, Urine Bilirubin Negative, Urine Urobilinogen Normal, Ur Leukocyte Esterase 100 H, Urine RBC 0 SEEN, Urine WBC 50-100 SEEN, Ur Squamous Epith Cells 0 SEEN, Urine Bacteria 1+, Urine Mucus 0 SEEN Medications at Discharge Home Medications losartan 25 mg tablet 25 mg PO DAILY 12/19/13 amlodipine 5 mg tablet 5 mg PO DAILY 11/14/23 levothyroxine 50 mcg tablet 50 mcg PO SUTUTHSA 11/14/23 levothyroxine 50 mcg tablet 75 mcg PO MOWEFR 11/14/23 oxybutynin chloride 5 mg tablet,extended release 24 hr 5 mg PO DAILY 11/14/23 oxycodone-acetaminophen 5 mg-325 mg tablet 1 tab PO BID PRN pain 11/14/23 pantoprazole 20 mg tablet,delayed release 20 mg PO DAILY 11/14/23 acetaminophen 500 mg tablet 1,000 mg (2 x 500 mg) PO Q8 PRN PAIN 7-10 #0 tabs 11/16/23 sennosides 8.6 mg-docusate sodium 50 mg tablet (Stimulant Laxative Plus) 2 tab PO BID #0 tabs 11/16/23 Physical Exam Narrative Seen and examined. Same complaint today as pain all over but could not pinpoint any specific location. She had better sleep after taking the Remeron yesterday. Physical exam General: Alert, Oriented x3, Cooperative HEENT: Atraumatic, PERRLA, EOMI, Normocephalic Oral: No Gingival or Mucosal Lesions/ Ulcerations Neck: Supple, No JVD, Negative Carotid Bruits Chest wall/Lungs: Air entry diminished in bilateral lung bases. No crepitation/rhonchi Cardiovascular: Regular rate, Regular Rhythm, Normal S1, Normal S2, No M/G/R Abdomen: Bowel Sounds Present, Soft, Non Tender, Non-Distended : No dysuria. No renal angle tenderness. No suprapubic tenderness. Extremities: No edema, Capillary Refill Less than 3 Seconds Skin: No rashes, No breakdown Musculoskeletal: Mild nonspecific muscle and joint tenderness. No acute tenderness. Neurological: Cranial nerves II-XII grossly intact, DTR 2+/4. No acute focal neurological deficit. Psych/Mental Status: Flat affect. Weight / BMI Weight Weight: 101 lb 13.657 oz Body Mass Index (BMI) 22.0 ABG / Lab / Microbiology Data 11/15/23 06:15 11/15/23 06:15 Microbiology: Microbiology 11/14/23 10:49 Urine, Clean Catch Urine Culture - Final Mixed Gram Positive Organisms D/C Instructions Discharge Diet: No restrictions Weight Bearing Status: Weight bearing as tolerated Call your doctor if you observe: Fever of 101 or Higher, Coldness, Increased Pain, Numbness or Tingling, Change in Color, Inability to urinate, Inability to have a bowel movement, Using more than 1 pad per hour, Shortness of breath, Dizziness, Fainting spells, Swelling in the ankles, Chest pain, Prolonged hiccupping, Increased palpitations (irregular heartbeat) and Calf discomfort When: IN 2 WEEKS Meaningful Use Info Meaningful Use Meaningful Use Diagnoses (Choose all that apply): None applicable Ischemic Stroke Statin Dosing Therapy Reference: STATIN DOSE THERAPY REFERENCE: * Patients > 75 years receive moderate or high dose statin therapy. * Patients 75 years or YOUNGER should receive HIGH intensity statin dose unless contraindicated. You will be required to document reason for non-treatment if statin daily dose does not meet guidelines. HIGH DOSE STATIN THERAPY DAILY Atorvastatin > than or = to 40 mg Rosuvastatin > than or = to 20 mg Amlodipine + Atorvastatin > than or = to 2.5/40 mg Ezetimibe + Simvastatin 10/80 mg Simvastatin 80mg Discharge Plan Admission Admit Date/Time: 11/14/23 12:58 Primary Reason for Your Visit: Nonspecific diffuse pain possible anxiety/mild depression. Attending Provider: Raman Lugo Primary Care Provider: Madeline Kuhn Consulting Providers: Tone Gao Instructions Patient Instructions: Chronic Pain Therapies Mind Body, ED Depression, ED Cystitis Female Adult Additional Instructions / Restrictions: Patient was offered antianxiety and antidepressant buspirone and Remeron but she declined it. She felt better when he started inpatient. Advised to follow-up with a psychiatrist Dr. Miller in 2 to 4 weeks Discharge Orders/Prescriptions Prescriptions: New acetaminophen 500 mg Tablet 1,000 mg PO Q8 PRN (Reason: PAIN 7-10) Qty: 0 0RF Rx Instructions: Advised qtdz-rjo-vemcmvv 1 g Q8 hourly as needed for moderate-severe pain sennosides-docusate sodium [Stimulant Laxative Plus] 8.6-50 mg Tablet 2 tab PO BID Qty: 0 0RF Rx Instructions: Plan-gyf-episufx pain Continued losartan 25 MG tablet 25 mg PO DAILY amlodipine 5 mg tablet 5 mg PO DAILY levothyroxine 50 mcg tablet 75 mcg PO MOWEFR levothyroxine 50 mcg tablet 50 mcg PO SUTUTHSA pantoprazole 20 mg tablet,delayed release (DR/EC) 20 mg PO DAILY oxycodone-acetaminophen 5-325 mg tablet 1 tab PO BID PRN (Reason: pain) oxybutynin chloride 5 mg tablet extended release 24hr 5 mg PO DAILY Patient Comments: PT STATES SHE STOPPED FOR A COUPLE DAYS,BUT DID TAKE THIS MORNING Referrals / Follow Up: Madeline Kuhn CNS [Primary Care Provider] - Within 2 Weeks Beto Miller DO [Med Staff - Sales Management Intern] - Within 2 Weeks NOT,DEFINED [Non-Staff] - Disposition Disposition (needs filled in before D/C Order can be placed): Home, Self Care Charges/Coding Visit Charges Inpatient E&M: 48075 Disch Hosp >30min
== END 2023-11-16 17:20 | disposition home or self-care (01) ==
LOC: ED 12:56 → MS3 14:10
PROVIDERS: Admitting Provider Internal Medicine; Emergency Provider Emergency Medicine; PCP Clinical Nurse Specialist Adult Health; Visit Provider Internal Medicine
DX: G89.29 Other chronic pain (principal); E87.1 Hypo-osmolality and hyponatremia; F32.9 Major depressive disorder, single episode, unspecified; I10 Essential (primary) hypertension; E03.9 Hypothyroidism, unspecified; Z79.890 Hormone replacement therapy; Z79.899 Other long term (current) drug therapy; Z74.09 Other reduced mobility; R26.2 Difficulty in walking, not elsewhere classified; F41.9 Anxiety disorder, unspecified; R82.90 Unspecified abnormal findings in urine
CPT/HCPCS: 36415; 80048; 81001; 84443; 85025; 87086; 87088; 94668; 96372; 97116; 97162; 97166; 97530; 99221; 99284; A4216; G0378

== ENCOUNTER 2023-11-28 13:41 | Observation (INO) | payer MEDICARE, SELFPAY ==
[2023-11-28] VITALS (9 sets, daily range): BP systolic 82–142; BP diastolic 56–80; PULSE 65–88; RESP 15–18; TEMP 36.6–36.9; O2SAT 97–99; BMI 21.8
[2023-11-28 14:01] LABS: Absolute Lymphocyte Count 0.65 X10^3/uL (0.83-4.51); Absolute Neutrophil Count 6.3 X10^3/uL (2.0-7.7); Basophil# 0.01 X10^3/uL; Basophil% 0.1 % (0-1); Hematocrit 37.6 % (37-47); Hemoglobin 11.7 g/dL (12.0-15.0); Lymphocyte # 0.65 X10^3/ul (0.83-4.51); Mean Corp Hgb Conc 31.1 g/dL (32-36); Mean Corpuscular Hgb 29.8 pg (27.0-32.0); Mean Corpuscular Volume 95.7 fL (81-99); Mean Platelet Vol. 8.9 fl (6.2-12.0); Monocyte# 0.23 X10^3/uL; Monocyte% 3.2 % (0-10); NRBC Flagged by Analyzer 0 % (0-5); Neutrophil # 6.32 X10^3/uL (2.7-7.7); Neutrophil % 87.1 % (47-70); Platelet Count 394 K/mm3 (150-450); RBC Distribution Width CV 13.1 % (11.6-14.6); RBC Distribution Width SD 46.3 fl (35.1-43.9); Red Blood Count 3.93 M/mm3 (4.2-5.4); White Blood Count 7.3 K/mm3 (4.4-11.0)
[2023-11-28 14:18] LABS: ALB/GLOB Ratio 0.5 RATIO (0.9-2.4); AST(SGOT) 19 U/L (15-37); Alanine Aminotransfer ALT/SGPT 21 U/L (13-56); Albumin, Serum 2.7 g/dL (3.2-5.0); Alkaline Phosphatase 76 U/L (45-117); Anion Gap 6 (5-15); BUN 18 mg/dL (7-18); BUN/Creat Ratio 17.5 RATIO (10-20); Calcium,Total 9.8 mg/dL (8.5-10.1); Chloride 103 mmol/L (98-107); Creatinine, Serum 1.03 mg/dL (0.55-1.02); EST Glomerular Filtration Rate 54 mL/min (>60); Est Glom Filt Rate - Afr Amer 65 mL/min (>60); Globulin 5.4 g/dL (2.2-4.2); Glucose 128 mg/dL (74-106); Potassium 3.6 mmol/L (3.5-5.1); Protein, Total 8.1 g/dL (6.4-8.2); Sodium Level 135 mmol/L (136-145)
--- NOTE | 2023-11-28 15:08 | CT_ITS ---
STUDY: CT ABDOMEN AND PELVIS WITH CONTRAST REASON FOR EXAM: Female, 88 years old. Abdominal Pain RADIATION DOSAGE (If Supplied By Facility): CTDIvol = ( 10.98 ) mGy, DLP = ( 356.48 ). TECHNIQUE: Transaxial images were obtained from the dome of the diaphragm to the symphysis pubis without oral contrast. IV 75mL Isovue-370 was administered. Sagittal and coronal images were reconstructed. Individualized dose optimization techniques were used for this CT. COMPARISON: None. FINDINGS: The visualized lung bases are unremarkable. The visualized portions of the heart are within normal limits. Normal liver. Normal gallbladder and extrahepatic biliary system. Normal spleen. Normal pancreas. Normal bilateral adrenal glands. Normal right kidney. Normal left kidney. Evaluation of the GI tract is limited by absence of oral contrast. Cannot exclude stomach wall thickening. No dilated loops of bowel or evidence for obstruction. Cannot exclude segmental thickening of the diaz of the small or large bowel. Cannot exclude enteritis or colitis. Diverticulosis without definite diverticulitis. Appendix not definitely seen. No inflammatory changes. There is diffuse atherosclerotic calcification of the abdominal aorta with elongation and tortuosity, but without a demonstrated aneurysm. Normal inferior vena cava. Normal retroperitoneum. Normal urinary bladder. There is absence of the uterus consistent with a prior hysterectomy. Normal abdominal wall. There are diffuse degenerative changes of the visualized lumbar spine. There is mild cerebral convex scoliosis. Postsurgical changes with fixation hardware seen between L4 and L5. CT/Abdomen/Pelvis W IV Cont ONLY IMPRESSION: No definite acute or significant abnormality seen. Electronically Signed: Naldo Turk MD at 16:15 EDT ,
--- NOTE | 2023-11-28 15:19 | EDS_ITS ---
HPI History of Present Illness Chief Complaint: Nausea/Vomiting/Diarrhea Narrative Narrative: 88-year-old female past medical history of chronic pain, presents with chief complaints of having pain all over her body for which she was seen in the emergency department approximately 2 weeks ago. Additionally, she states that over the last day she has had nausea, vomiting, and diarrhea. She relates history that on Monday, 2 days ago she had a piece of pizza, then yesterday, friends gave her chicken Pelon which she ate. She started having thick phlegm in her throat, and in the middle of the night had an episode of diarrhea where she soiled her clothes. She became nauseated and vomited as well. Then, at 11:00 again today she had another episode of diarrhea. She was supposed to see her pain management doctor, but did not want to because of fear that she would soil herself. She presents mainly because of the nausea, vomiting, and diarrhea that she has been having. She also has continued pain all over her body. She states she is really not having abdominal pain, and denies any problems with dysuria or hematuria. [facility] Medical History Impaired mobility and ADLs Difficulty in walking Anxiety Depression Non-smoker Pituitary abnormality Migraines Peptic ulcer disease Hypothyroidism Hypertension Chronic pain Home Medications ?Medication ?Instructions ?Recorded ?Last Taken ?Type losartan 25 mg tablet 25 mg PO DAILY 12/19/13 11/14/23 History amlodipine 5 mg tablet 5 mg PO DAILY 11/14/23 11/14/23 History oxybutynin chloride 5 mg 5 mg PO DAILY 11/14/23 11/28/23 History tablet,extended release 24 hr oxycodone-acetaminophen 5 mg-325 1 tab PO BID PRN pain 11/14/23 11/14/23 History mg tablet pantoprazole 20 mg tablet,delayed 20 mg PO DAILY 11/14/23 11/14/23 History release acetaminophen 500 mg tablet 1,000 mg (2 x 500 mg) PO Q8 PRN 11/16/23 11/27/23 Rx PAIN 7-10 #0 tabs sennosides 8.6 mg-docusate sodium 2 tab PO BID #0 tabs 11/16/23 11/27/23 Rx 50 mg tablet (Stimulant Laxative Plus) levothyroxine 75 mcg tablet 75 mcg PO DAILY 11/28/23 Unknown History omeprazole 10 mg capsule,delayed 10 mg PO DAILY 11/28/23 Unknown History release Allergy/AdvReac Type Severity Reaction Status Date / Time No Known Allergies Allergy Verified 11/28/23 13:42 Surgical History H/O spinal fusion History of parathyroid surgery History of appendectomy Social History household members: none Smoking Status: Never smoker substance use type: does not use ROS ROS ED ROS Narrative Constitutional: No fever, no chills. HEENT: No sore throat. No neck pain. No loss of vision. No rhinorrhea. Cardiovascular: No chest pain. No palpitations. No pedal edema. Respiratory: No cough, no shortness of breath. Abdominal: No abdominal pain. Positive nausea, vomiting, and diarrhea. Genitourinary: No dysuria. No hematuria. Musculoskeletal: Multiple myalgias and arthralgias. Neurologic: No headaches. No dizziness. No lightheadedness. Skin: No rash. No change in color. Psychiatric: No depression. No anxiety. EXAM Physical Exam Narrative Exam Narrative: Afebrile. Vital signs noted. HEENT: Normocephalic. Atraumatic. PERRL, EOMI. Neck soft and supple. No point tenderness or step off. Cardiovascular: Regular rate and rhythm. No murmurs, rubs, or gallops appreciated. Respiratory: No tachypnea. Lungs clear to auscultation bilaterally. Gastrointestinal: Abdomen soft, nontender, with normoactive bowel sounds. No rebound or guarding. Neurological: Awake. Alert. Nonfocal, nonlateralizing. Skin: No rash. Normal color. No pallor. Musculoskeletal: No pedal edema. Full range of motion extremities. Const Vital Signs: 11/28/23 13:43 11/28/23 16:00 11/28/23 17:00 Temperature 97.8 F Temperature Source Temporal Pulse Rate 88 86 80 Respiratory Rate 18 Blood Pressure 106/76 142/80 H 82/60 L Blood Pressure Mean 86 100 67 Pulse Ox 97 Oxygen Delivery Method Room Air 11/28/23 18:00 11/28/23 18:17 11/28/23 20:00 Temperature Temperature Source Pulse Rate 76 68 Respiratory Rate 17 16 Blood Pressure 141/56 H Blood Pressure Mean 84 Pulse Ox 98 Oxygen Delivery Method Room Air Room Air MDM MDM MDM Narrative Medical decision making narrative: Differential diagnosis includes but not limited to partial small bowel obstruction versus colitis versus diverticulitis versus dehydration. Reviewed her prior labs. Nursing protocol labs have been entered and I reviewed her laboratory work from today. She has normal white count of 7.3 with hemoglobin 11.7, hematocrit 37.6 with platelet count 394. Sodium normal at 135 with BUN normal at 18 and creatinine 1.03, LFTs are grossly unremarkable. Will add a lipase and CT imaging of the abdomen and pelvis to look for colitis or diverticulitis or other reason for her diarrhea. Also in the differential diagnosis would be lactose intolerant as she states she had stool with what looked like to be small curds of cottage cheese which may be secondary to her eating fettuccine Pelon. I reviewed her radiology report of the CT of the abdomen pelvis which shows no a cute process. As I was speaking to the patient and her son, she was complaining of her typical pain, that originates in her back, and requesting her pain medication. Her son states that she usually takes Percocet as well as Tylenol. In discussion with the RN after ordering her oxycodone, before was given, she started speaking nonsensically, and slurring her speech, which was new for her. On my evaluation, while she had no evidence of focal deficit on examination, she complained of a right sided headache, and I scored her as an NIH stroke scale of 3 for mild dysarthria, and word salad/expressive aphasia. However, she was intermittently able to read words on the placard. She did get the month and age and water level of consciousness questions correct. Given the sudden onset, stroke team was called. I received a call from the radiologist regarding the CT of the brain which shows chronic involutional changes but no evidence of acute hemorrhage. Additionally, CTA does show a 0.5 cm cerebral aneurysm in the M2 distribution. In discussion with the patient and her son, she states that this is a different area where the aneurysm was found today but she had told them when she was 82 years old that she did not want anything done about aneurysms. I do not feel that she is a TNK candidate because upon repeat examination, RN reports that her speech is back to normal. On my reevaluation, she has an NIH stroke scale of 0, and no dysarthria or expressive aphasia. I reviewed her repeat laboratory work, and there is no significant change although her hemoglobin did drop slightly to 10.2, and her coagulation studies are negative. Sodium is down to 132. High-sensitivity troponin is 6. EKG obtained and interpreted by myself independently as normal sinus rhythm at 72 bpm without ectopy or acute ST changes. No STEMI. I discussed patient with Dr. Bautista for observation on the PCU. Patient is in stable condition. History & Record Review Discussion w/independent historian: Patient and Family Additional record(s) reviewed:: Prior ED visit and Prior labs Lab Data Attestation: I reviewed the patient's lab results. Labs: Laboratory Results - last 24 hr 11/28/23 11/28/23 11/28/23 13:48 16:02 18:18 WBC 7.3 6.2 RBC 3.93 L 3.41 L Hgb 11.7 L 10.2 L Hct 37.6 32.1 L MCV 95.7 94.1 MCH 29.8 29.9 MCHC 31.1 L 31.8 L RDW Std Deviation 46.3 H 44.9 H RDW Coeff of [place] 13.1 13.1 Plt Count 394 323 MPV 8.9 8.6 Immature Gran % (Auto) 0.600 0.500 Neut % (Auto) 87.1 H 84.9 H Lymph % (Auto) 9.0 L 8.7 L [place] % (Auto) 3.2 5.7 Eos % (Auto) 0.0 0.0 Baso % (Auto) 0.1 0.2 Absolute Neuts (auto) 6.3 5.3 Absolute Lymphs (auto) 0.65 L 0.54 L Nucleated RBC % 0 0 PT 14.0 INR 1.1 APTT 30.7 Sodium 135 L 132 L Potassium 3.6 3.5 Chloride 103 98 Carbon Dioxide 26.0 25.0 Anion Gap 6 8 BUN 18 16 Creatinine 1.03 H 0.88 Est GFR (MDRD) Af Amer 65 78 Est GFR (MDRD) Non-Af 54 L 64 BUN/Creatinine Ratio 17.5 18.1 Glucose 128 H 103 Calcium 9.8 8.9 Total Bilirubin 0.40 AST 19 ALT 21 Alkaline Phosphatase 76 Troponin I High Sens 6 Total Protein 8.1 Albumin 2.7 L Globulin 5.4 H Albumin/Globulin Ratio 0.5 L Lipase 14 Urine Color Straw Urine Clarity Clear Urine pH 7.0 Ur Specific [place] 1.010 Urine Protein 15 H Urine Glucose (UA) Normal Urine Ketones Negative Urine Occult Blood 10 H Urine Nitrite Negative Urine Bilirubin Negative Urine Urobilinogen Normal Ur Leukocyte Esterase 25 H Urine RBC 0 SEEN Urine WBC 0-5 SEEN Ur Squamous Epith Cells 0-5 SEEN Urine Bacteria 0 SEEN Urine Mucus 0 SEEN POC Glucose 81 Radiography Diagnostic Testing: Clinical Impression(s) from Imaging Studies Abdomen/Pelvis CT 11/28/23 15:08 IMPRESSION: No definite acute or significant abnormality seen. Electronically Signed: Naldo Turk MD at 16:15 EDT , Brain CT 11/28/23 18:03 IMPRESSION: Chronic involutional changes of the brain. N.B. : The above Results were Read Back by Toni Palomo MD to Jitendra Santa MD, and understanding confirmed on 11/28/2023 18:32:26 (ET). Electronically Signed: Toni Palomo MD at 18:34 EDT , ADDENDUM: 11/28/23 1841 IMPRESSION: Chronic involutional changes of the brain. N.B. : The above Results were Read Back by Toni Palomo MD to Jitendra Santa MD, and understanding confirmed on 11/28/2023 18:32:26 (ET). Electronically Signed: Toni Palomo MD at 18:34 EDT , Head/Neck CTA 11/28/23 18:03 IMPRESSION: Left middle cerebral artery aneurysm. Mild narrowing of the internal carotid arteries. No hemodynamically significant internal carotid artery stenosis. N.B. : The above Results were Read Back by Toni Palomo MD to Jitendra Santa MD, and understanding confirmed on 11/28/2023 19:15:03 (ET). Electronically Signed: Toni Palomo MD at 19:16 EDT , ADDENDUM: 11/28/23 1923 IMPRESSION: Left middle cerebral artery aneurysm. Mild narrowing of the internal carotid arteries. No hemodynamically significant internal carotid artery stenosis. N.B. : The above Results were Read Back by Toni Palomo MD to Jitendra Santa MD, and understanding confirmed on 11/28/2023 19:15:03 (ET). Electronically Signed: Toni Palomo MD at 19:16 EDT , Chest X-Ray 11/28/23 19:00 IMPRESSION: Degenerative changes, as described above. No demonstrated acute cardiopulmonary process. Electronically Signed: Toni Palomo MD at 20:24 EDT , Management Discussion w/another healthcare provider: Hospitalist (Dr. Bautista) Discharge Plan Triage Chief Complaint: Nausea/Vomiting/Diarrhea ED Provider: Jitendra Santa Dx/Rx/DC Orders Prescriptions: No Action losartan 25 MG tablet 25 mg PO DAILY amlodipine 5 mg tablet 5 mg PO DAILY pantoprazole 20 mg tablet,delayed release (DR/EC) 20 mg PO DAILY oxycodone-acetaminophen 5-325 mg tablet 1 tab PO BID PRN (Reason: pain) oxybutynin chloride 5 mg tablet extended release 24hr 5 mg PO DAILY acetaminophen 500 mg Tablet 1,000 mg PO Q8 PRN (Reason: PAIN 7-10) Qty: 0 0RF Rx Instructions: Advised lqqe-uia-iqthglm 1 g Q8 hourly as needed for moderate-severe pain sennosides-docusate sodium [Stimulant Laxative Plus] 8.6-50 mg Tablet 2 tab PO BID Qty: 0 0RF Rx Instructions: Oaqe-ozv-zyqhbyt pain omeprazole 10 mg capsule,delayed release(DR/EC) 10 mg PO DAILY levothyroxine 75 mcg tablet 75 mcg PO DAILY Primary Care Provider: Madeline Kuhn Referrals: Madeline Kuhn, TRAVELING REPRESENTATIVE [Primary Care Provider] - Print Language: Serbian
[2023-11-28 15:53] LABS: Lipase 14 U/L (13-75)
[2023-11-28 16:05] LABS: Bacteria 0 SEEN /hpf (None Seen); Mucous, Urine 0 SEEN /hpf (<or=2+); Red Blood Cells-Urine 0 SEEN /hpf (0-5)
[2023-11-28 16:11] LABS: Color, Urine Straw (Yellow); Glucose, Dipstick Normal (Normal); Ketone-Dipstick Negative (Negative); Leukocyte Esterase-Dipstick 25 /ul (Negative); Nitrite-Dipstick Negative (Negative); Occult Blood-Urine 10 /ul (Negative); Protein-Dipstick 15 mg/dl (Negative); Urine Bilirubin Dipstick Negative (Negative); Urine Clarity Clear (Clear); Urine Urobilinogen Normal (Normal)
[2023-11-28 16:37] LABS: Squamous Epithelial Cells - UA 0-5 SEEN /hpf (5-10); White Blood Cells 0-5 SEEN /hpf (0-5)
[2023-11-28] MEDS: oxyCODONE 5 MG Tablet PO (17:13)
--- NOTE | 2023-11-28 18:03 | EKG12_ITS ---
Test Reason : STROKE Blood Pressure : / mmHG Vent. Rate : 072 BPM Atrial Rate : 072 BPM P-R Int : 158 ms QRS Dur : 072 ms QT Int : 376 ms P-R-T Axes : 036 015 041 degrees QTc Int : 411 ms Normal sinus rhythm Nonspecific T wave abnormality Abnormal ECG Confirmed by Cuco Doshi ([id number]), newspaper photo editor LUKE YING ([id number]) on 11/29/2023 9:34:40 AM Referred By: ALYSE Confirmed By:Cuco Doshi
--- NOTE | 2023-11-28 18:03 | CT_ITS ---
STUDY: CT BRAIN WITHOUT CONTRAST REASON FOR EXAM: Female, 88 years old. Neuro deficit, acute, stroke suspected RADIATION DOSAGE (If Supplied By Facility): CTDIvol = ( ) mGy, DLP = ( ) mGycm TECHNIQUE: Transaxial CT imaging of the brain was performed without administration of intravenous contrast material. Individualized dose optimization techniques were used for this CT. COMPARISON: No relevant priors. FINDINGS: Normal soft tissue structures. Normal calvarium. There is mild cerebral atrophy with widening of the extra-axial spaces and ventricular dilatation. There are areas of decreased attenuation within the white matter tracts of the supratentorial brain, consistent with microvascular disease changes. Normal basal ganglia and thalami. Normal brainstem. Normal cerebellum. There is vascular stent in the left distal internal carotid artery. There is dolichoectasia of the basilar artery. There is no intracranial hemorrhage. There are no findings of an acute ischemic infarction. Normal visualized paranasal sinuses. CT/STROKE Brain/Head without Cont IMPRESSION: Chronic involutional changes of the brain. N.B. : The above Results were Read Back by Toni Palomo MD to Jitendra Santa MD, and understanding confirmed on 11/28/2023 18:32:26 (ET). Electronically Signed: Toni Palomo MD at 18:34 EDT ,
--- NOTE | 2023-11-28 18:03 | CT_ITS ---
STUDY: CTA HEAD AND NECK WITH CONTRAST REASON FOR EXAM: Female, 88 years old. Neuro deficit, acute, stroke suspected RADIATION DOSAGE (If Supplied By Facility): CTDIvol = ( 17.65 ) mGy, DLP = ( 549.57 ) mGycm TECHNIQUE: CT angiography was performed with a multi-detector CT scanner. Data acquisition was obtained from the skull base through the vertex following intravenous administration of IV 75mL [id number]-[id number]. MIP images were reconstructed from the axial data set. Post-processing of the angiographic images was performed, with multiplanar reformation and 3D reconstruction. Individualized dose optimization techniques were used for this CT. COMPARISON: No relevant priors. FINDINGS: Normal bilateral petrous carotid arteries. There is calcified plaque formation of the right cavernous carotid artery, without a cross-sectional luminal stenosis. There is stent in the left cavernous carotid artery with a normal supraclinoid bifurcation. Normal right A1 segments of the anterior cerebral artery. Normal left A1 segments of the anterior cerebral artery. Normal intact anterior communicating artery (ACOM). Normal bilateral A2 segments of the anterior cerebral arteries. Normal right M1 and M2 segments of the middle cerebral arteries, with a normal M1 bifurcation. Normal left M1 segment of the middle cerebral arteries, with a normal M1 bifurcation. There is a 0.5 cm aneurysm of the left M2 segment, series 2 images 366 through 372. Normal right posterior communicating artery (PCOM). Normal left posterior communicating artery (PCOM). There is a small atretic right vertebral artery with a dominant left vertebral artery. Normal basilar artery with a normal basilar bifurcation. The visualized bilateral superior cerebellar (SCA) arteries are normal. Normal bilateral P1, P2 and visualized P3 segments of the posterior cerebral arteries. There is no demonstrated aneurysm of the [place]. There is no demonstrated abnormality of the visualized brain. AORTIC ARCH: Normal visualized aortic arch. Normal origins of the brachiocephalic, left common carotid, and left subclavian arteries. RIGHT CAROTID ARTERIES: Normal right common carotid artery (CCA). There is mild atherosclerotic plaque formation with minimal narrowing of the right carotid bulb. There is mild atherosclerotic plaque formation of the origin of the right internal carotid artery with less than 50% cross sectional diameter stenosis. Normal visualized cervical portion of the right internal carotid artery. Normal origin of the right external carotid artery (ECA). LEFT CAROTID ARTERIES: Normal left common carotid artery (CCA). There is mild atherosclerotic plaque formation with minimal narrowing of the left carotid bulb. There is mild atherosclerotic plaque formation of the origin of the left internal carotid artery with less than 50% cross sectional diameter stenosis. Normal visualized cervical portion of the left internal carotid artery. Normal origin of the left external carotid artery (ECA). VERTEBRAL ARTERIES: There is enhancement within the bilateral vertebral arteries with a small right vertebral artery, and a dominant left vertebral artery. CT/STROKE CTA Head AND Neck W/Con IMPRESSION: Left middle cerebral artery aneurysm. Mild narrowing of the internal carotid arteries. No hemodynamically significant internal carotid artery stenosis. N.B. : The above Results were Read Back by Toni Palomo MD to Jitendra Santa MD, and understanding confirmed on 11/28/2023 19:15:03 (ET). Electronically Signed: Toni Palomo MD at 19:16 EDT ,
--- NOTE | 2023-11-28 18:04 | ED.RN ---
STROKE ALERT CALLED
[2023-11-28 18:24] LABS: Absolute Lymphocyte Count 0.54 X10^3/uL (0.83-4.51); Absolute Neutrophil Count 5.3 X10^3/uL (2.0-7.7); Basophil# 0.01 X10^3/uL; Basophil% 0.2 % (0-1); Hematocrit 32.1 % (37-47); Hemoglobin 10.2 g/dL (12.0-15.0); Lymphocyte # 0.54 X10^3/ul (0.83-4.51); Lymphocyte % 8.7 % (19-41); Mean Corp Hgb Conc 31.8 g/dL (32-36); Mean Corpuscular Hgb 29.9 pg (27.0-32.0); Mean Corpuscular Volume 94.1 fL (81-99); Mean Platelet Vol. 8.6 fl (6.2-12.0); Monocyte# 0.35 X10^3/uL; Monocyte% 5.7 % (0-10); NRBC Flagged by Analyzer 0 % (0-5); Neutrophil # 5.26 X10^3/uL (2.7-7.7); Neutrophil % 84.9 % (47-70); POSITIVE DIFFERENTIAL YES; Platelet Count 323 K/mm3 (150-450); RBC Distribution Width CV 13.1 % (11.6-14.6); RBC Distribution Width SD 44.9 fl (35.1-43.9); Red Blood Count 3.41 M/mm3 (4.2-5.4); White Blood Count 6.2 K/mm3 (4.4-11.0)
[2023-11-28 18:35] LABS: Bedside Glucose 81 mg/dL (74-106); International Normalized Ratio 1.1
[2023-11-28 18:36] LABS: Partial Thromboplast Time 30.7 Seconds (24.1-36.2)
[2023-11-28 18:41] LABS: Anion Gap 8 (5-15); BUN 16 mg/dL (7-18); BUN/Creat Ratio 18.1 RATIO (10-20); Calcium,Total 8.9 mg/dL (8.5-10.1); Chloride 98 mmol/L (98-107); Creatinine, Serum 0.88 mg/dL (0.55-1.02); EST Glomerular Filtration Rate 64 mL/min (>60); Est Glom Filt Rate - Afr Amer 78 mL/min (>60); Glucose 103 mg/dL (74-106); Potassium 3.5 mmol/L (3.5-5.1); Sodium Level 132 mmol/L (136-145); Troponin-I HS 6 pg/mL (3.0-54.0)
--- NOTE | 2023-11-28 19:00 | RAD_ITS ---
STUDY: X-RAY CHEST REASON FOR EXAM: Female, 88 years old. Neuro deficit, acute, stroke suspected TECHNIQUE: Single AP portable view of the chest. COMPARISON: None. FINDINGS: The lungs are clear and expanded. There is no demonstrated pleural abnormality. Normal size heart. Normal mediastinum and kenna. Normal visualized pulmonary arteries. There is atherosclerotic tortuosity of the descending thoracic aorta. There is demineralization of the osseous structures. There are compression deformities of the lower thoracic spine. There is degenerative change of the right shoulder. There is no demonstrated abnormality of the visualized soft tissue structures of the upper abdomen. RAD/Chest 1 View IMPRESSION: Degenerative changes, as described above. No demonstrated acute cardiopulmonary process. Electronically Signed: Toni Palomo MD at 20:24 EDT ,
--- NOTE | 2023-11-28 20:22 | HP.PCM.HOS_ITS ---
HPI - General General Date of Admission: 11/28/23 Date of Service: 11/28/23 Chief Complaint: N/V/D, pain. 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 Patient did report she had a significant amount of lactose heavy food specifically fettuccine Pel[place] and does have a lactose intolerance history. While in the ED unfortunately at 1630 she had onset of slurred speech as well as confusion with no facial droop or any focal weakness or paresthesias and as noted had originally presented for abdominal complaints including nausea, emesis and diarrhea with initial NIH stroke score at onset 3 (dysarthria, difficulty w/ confusion, couldn't repeat/nonsensical). Stroke alert was initiated when the symptoms were noted and fortunately the symptoms improved with NIH stroke scale assessment per neurology/telestroke 0 given complete resolution with concern for possible early ischemic changes <1/3 MCA territory/right frontal lobe, CTA with left ICA fenestration with a patent left ICA stent with no LVO with concern for ischemic stroke with recommendation for continued stroke evaluation. Workup in the ED included T97.8, heart rate 88, BP 106/76, respiratory rate 15, 97% on room air with transient decrease in blood pressure down to 82/60 however most recent repeat vital signs heart rate 68, BP 141/56, respiratory rate 16, 98% on room air, CBC initially earlier in the ED with WBC 7.3, hemoglobin 11.7, MCV 95.7, platelet 394 with lymphopenia otherwise not marked appearing, CMP with sodium 135, BUN/creatinine 18/1.03, GFR 54, glucose 128, hepatic profile not marked appearing, lipase 14, repeat most recent CBC with WBC 6.2, hemoglobin 10.2, MCV 94.1, platelet 323 with again lymphopenia, unremarkable coags, BMP with sodium 132, BUN/creatinine 16/0.88, GFR 64, urinalysis unremarkable, CT abdomen and pelvis with no acute intra-abdominal finding, CT brain with chronic involutional changes with no acute intracranial findings, CTA head and neck with left middle cerebral artery aneurysm, mild narrowing of the internal carotid arteries with no hemodynamically significant internal carotid artery stenosis noted, EKG with sinus rhythm with nonspecific ST-T changes with no acute evidence of ischemia. In the ED patient ministered oxycodone 5 mg p.o. x 1. Upon admission discussed current status with patient at length and she very adamantly declines any further imaging or echocardiogram. She also declines any further neurological consultation. She understands the risks but reports she is 88 and does not want to accrue marked debt. [facility] Medical History Impaired mobility and ADLs Difficulty in walking Anxiety Depression Non-smoker Pituitary abnormality Migraines Peptic ulcer disease Hypothyroidism Hypertension Chronic pain Home Medications ?Medication ?Instructions ?Recorded ?Last Taken ?Type losartan 25 mg tablet 25 mg PO DAILY 12/19/13 11/14/23 History amlodipine 5 mg tablet 5 mg PO DAILY 11/14/23 11/14/23 History oxybutynin chloride 5 mg 5 mg PO DAILY 11/14/23 11/28/23 History tablet,extended release 24 hr oxycodone-acetaminophen 5 mg-325 1 tab PO BID PRN pain 11/14/23 11/14/23 History mg tablet pantoprazole 20 mg tablet,delayed 20 mg PO DAILY 11/14/23 11/14/23 History release acetaminophen 500 mg tablet 1,000 mg (2 x 500 mg) PO Q8 PRN 11/16/23 11/27/23 Rx PAIN 7-10 #0 tabs sennosides 8.6 mg-docusate sodium 2 tab PO BID #0 tabs 11/16/23 11/27/23 Rx 50 mg tablet (Stimulant Laxative Plus) levothyroxine 75 mcg tablet 75 mcg PO DAILY 11/28/23 Unknown History omeprazole 10 mg capsule,delayed 10 mg PO DAILY 11/28/23 Unknown History release Allergy/AdvReac Type Severity Reaction Status Date / Time No Known Allergies Allergy Verified 11/28/23 13:42 Family History (Updated 11/28/23 @ 20:[address] Johana Bautista MD) Mother Lymphoma Father Liver cancer Surgical History H/O spinal fusion History of parathyroid surgery History of appendectomy Social History (Updated 11/28/23 @ 20:[address] Johana Bautista MD) household members: none Smoking Status: Never smoker alcohol intake: never substance use type: does not use ROS ROS Narrative Admission Review of Systems: CONSTITUTIONAL: No weight loss, fever, chills, + weakness or fatigue. HEENT: Eyes: No visual loss, blurred vision, double vision or yellow sclerae. Ears, Nose, Throat: No hearing loss, sneezing, congestion, runny nose or sore throat. SKIN: No rash or itching, lesions, wounds. CARDIOVASCULAR: No chest pain, chest pressure or chest discomfort, palpitations, edema, orthopnea, syncopal events. RESPIRATORY: No shortness of breath, cough or sputum, wheezing, hemoptysis. GASTROINTESTINAL: + Anorexia, nausea, vomiting, diarrhea. No abdominal pain, melena, BRBPR. GENITOURINARY: No dysuria, frequency, urgency or retention. NEUROLOGICAL: + Transient aphasia/dysarthria now resolved. No headache, dizziness, syncope, paralysis, ataxia, numbness or tingling in the extremities, focal weakness, seizure. MUSCULOSKELETAL: + muscle, back pain, joint pain or stiffness. HEMATOLOGIC: No anemia, bleeding or bruising. LYMPHATICS: No enlarged nodes. No history of splenectomy. PSYCHIATRIC: + history of depression and anxiety. ENDOCRINOLOGIC: No reports of sweating, cold or heat intolerance. No polyuria or polydipsia. ALLERGIES: No history of asthma, hives, eczema or rhinitis. Vital Signs Vital Signs Vital Signs: 11/28/23 13:43 11/28/23 16:00 11/28/23 17:00 Temperature 97.8 F Temperature Source Temporal Pulse Rate 88 86 80 Respiratory Rate 15 18 18 Blood Pressure 106/76 142/80 H 82/60 L Blood Pressure Mean 86 100 67 Pulse Ox 97 Oxygen Delivery Method Room Air 11/28/23 18:00 11/28/23 18:17 11/28/23 20:00 Temperature Temperature Source Pulse Rate 76 68 Respiratory Rate 17 16 Blood Pressure 141/56 H Blood Pressure Mean 84 Pulse Ox 98 Oxygen Delivery Method Room Air Room Air Physical Exam Narrative Physical Examination: General: Awake, alert, oriented x 3 and cooperative, seated upright in the ED bed, notes feeling improved, no recent nausea, emesis or diarrheal episodes, no recurrent neurological deficits. Skin: Normal color, normal turgor, no icterus, no cyanosis. HEENT: AT/NC, EOMI, PERRLA, MMM, no carotid bruits or JVD noted. Lungs: Mildly diminished, greater bases, appropriate effort, no rales, ronchi or wheezing. Heart: Regular rate and rhythm; no gallop, rub audible. Abdomen: Soft, NTTP, ND, mildly hyperactive BS, no HSM. Extremities: No cyanosis, clubbing, or edema. Neurological: Patient awake, alert, oriented as noted, cognitive function i currently appears baseline ntact; pupils equally reactive to light and accommodation, cranial nerves gross normal, moving all 4 extremities, no focal deficits, sensation intact, finger-nose and [id number] appropriate, equivocal Babinski, no evidence of any recurrent aphasia/dysarthria, strength mildly to moderately globally decreased secondary to age and recent acute GI illness likely but no acute deficits Psychiatric: Affect appears fatigued otherwise normal, no acute evidence of depressive or anxiety feelings but does have underlying history. Results Lab / Micro Data 11/28/23 18:18 11/28/23 18:18 Labs: Laboratory Results - last 24 hr 11/28/23 13:48: WBC 7.3, RBC 3.93 L, Hgb 11.7 L, Hct 37.6, MCV 95.7, MCH 29.8, M CHC 31.1 L, RDW Std Deviation 46.3 H, RDW Coeff of Sagar 13.1, Plt Count 394, MPV 8.9, Immature Gran % (Auto) 0.600, Neut % (Auto) 87.1 H, Lymph % (Auto) 9.0 L, Upson % (Auto) 3.2, Eos % (Auto) 0.0, Baso % (Auto) 0.1, Absolute Neuts (auto) 6.3, Absolute Lymphs (auto) 0.65 L, Nucleated RBC % 0, Sodium 135 L, Potassium 3.6, Chloride 103, Carbon Dioxide 26.0, Anion Gap 6, BUN 18, Creatinine 1.03 H, Est GFR (MDRD) Af Amer 65, Est GFR (MDRD) Non-Af 54 L, BUN/Creatinine Ratio 17.5, Glucose 128 H, Calcium 9.8, Total Bilirubin 0.40, AST 19, ALT 21, Alkaline Phosphatase 76, Total Protein 8.1, Albumin 2.7 L, Globulin 5.4 H, A lbumin/Globulin Ratio 0.5 L, Lipase 14 11/28/23 16:02: Urine Color Straw, Urine Clarity Clear, Urine pH 7.0, Ur Specific Merrill 1.010, Urine Protein 15 H, Urine Glucose (UA) Normal, Urine Ketones Negative, Urine Occult Blood 10 H, Urine Nitrite Negative, Urine Bilirubin Negative, Urine Urobilinogen Normal, Ur Leukocyte Esterase 25 H, Urine RBC 0 SEEN, Urine WBC 0-5 SEEN, Ur Squamous Epith Cells 0-5 SEEN, Urine Bacteria 0 SEEN, Urine Mucus 0 SEEN 11/28/23 18:18: WBC 6.2, RBC 3.41 L, Hgb 10.2 L, Hct 32.1 L, MCV 94.1, MCH 29.9, MCHC 31.8 L, RDW Std Deviation 44.9 H, RDW Coeff of Sagar 13.1, Plt Count 323, MPV 8.6, Immature Gran % (Auto) 0.500, Neut % (Auto) 84.9 H, Lymph % (Auto) 8.7 L, Upson % (Auto) 5.7, Eos % (Auto) 0.0, Baso % (Auto) 0.2, Absolute Neuts (auto) 5.3, Absolute Lymphs (auto) 0.54 L, Nucleated RBC % 0, PT 14.0, INR 1.1, APTT 30.7, Sodium 132 L, Potassium 3.5, Chloride 98, Carbon Dioxide 25.0, Anion Gap 8, BUN 16, Creatinine 0.88, Est GFR (MDRD) Af Amer 78, Est GFR (MDRD) Non-Af 64, BUN/Creatinine Ratio 18.1, Glucose 103, Calcium 8.9, Troponin I High Sens 6, POC Glucose 81 Imaging Radiology Impression Abdomen/Pelvis CT 11/28/23 15:08 IMPRESSION: No definite acute or significant abnormality seen. Electronically Signed: Naldo Turk MD at 16:15 EDT , Brain CT 11/28/23 18:03 IMPRESSION: Chronic involutional changes of the brain. N.B. : The above Results were Read Back by Toni Palomo MD to Jitendra Santa MD, and understanding confirmed on 11/28/2023 18:32:26 (ET). Electronically Signed: Toni Palomo MD at 18:34 EDT , ADDENDUM: 11/28/23 1841 IMPRESSION: Chronic involutional changes of the brain. N.B. : The above Results were Read Back by Toni Palomo MD to Jitendra Santa MD, and understanding confirmed on 11/28/2023 18:32:26 (ET). Electronically Signed: Toni Palomo MD at 18:34 EDT , Head/Neck CTA 11/28/23 18:03 IMPRESSION: Left middle cerebral artery aneurysm. Mild narrowing of the internal carotid arteries. No hemodynamically significant internal carotid artery stenosis. N.B. : The above Results were Read Back by Toni Palomo MD to Jitendra Santa MD, and understanding confirmed on 11/28/2023 19:15:03 (ET). Electronically Signed: Toni Palomo MD at 19:16 EDT , ADDENDUM: 11/28/23 1923 IMPRESSION: Left middle cerebral artery aneurysm. Mild narrowing of the internal carotid arteries. No hemodynamically significant internal carotid artery stenosis. N.B. : The above Results were Read Back by Toni Palomo MD to Jitendra Santa MD, and understanding confirmed on 11/28/2023 19:15:03 (ET). 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, Anxiety and Depression, Chronic migraines, Chronic pain syndrome, HTN, Hypothyroidism, GERD w/ PUD, Hypothyroidism who presents to the [facility] ED on 11/28/23 with history of diffuse pain reportedly seen 2 weeks prior also in the ED with onset over the last 24 hours nausea, emesis and loose stools as well as thick phlegm however she reports only 2 specific episodes of marked diarrhea unfortunately missing her chronic pain appointment secondary to concern she might have recurrent diarrhea prompting eventual ED evaluation to be cautious on sudden onset while in the ED aphasia and dysarthria that resolved. #1. Dysarthria, aphasia, transient, both resolved concerning for TIA/CVA event complicated by #3 as well as mild bilateral carotid disease: Will admit to PCU, per patient's strong preference and following lengthy discussion we will avoid any further imaging or echocardiogram. Will request PT/OT/Speech/Nutrition evaluation per protocol, allow permissive HTN, maintain on asa with FS administered upon admission, add moderate dose statin given age pending further evaluation w/ AM FLP, fall precautions. Mag, TSH, FLP, HgbA1c requested. Maintain on fall and aspiration precautions. If patient remains stable and appropriate given her preference to avoid any imaging or echocardiogram or further neurology consultation would be appropriate to discharge with follow-up with primary care potentially 11/29/2023 pending resolution of #2. #2. N/V/D, Possible Lactose intolerance component given recent heavy lactose intake versus Gastroenteritis: Will judiciously hydrate, will obtain c diff, stool cx repeat AM CBC. Will not start antibiotics at this time given unclear source pending stool studies as may be viral gastroenteritis or again could be secondary to heavy lactose intake. Anti-emetics. If stool studies unremarkable may initiate antidiarrheal regimen #3. History left ICA aneurysm, Known left middle cerebral artery aneurysm: Status post stent intracranially L ICA as noted, currently aware of L MCA aneurysm, CT imaging as noted with patent region per neurology input. Continue treatment and evaluation as noted above. #4. Hypertension: Will continue permissive hypertension per stroke protocol, as needed agents per stroke order set. #5. Chronic migraines: Not on any chronic regimen, no mention of any headache in the situation but patient certainly could have complex migraine as etiology especially if no findings on MRI, continue evaluation as noted. #6. Anxiety and depression: Per current list on a regimen, clarifying to be certain, encourage continued outpatient follow-up #7. Hypothyroidism: We will continue home levothyroxine regimen, TSH requested. #8. Chronic pain syndrome: Encourage positional changes, fall precautions, continue judicious home narcotic regimen to avoid withdrawal but hold for sedation. #9. GERD with PUD history: We will continue patient home PPI. #10. DVT prophylaxis: Lovenox. #11 CODE status: Patient NEAL is her son and living will is currently in place. Discussed CODE status at length including difference between FULL code, DNR-CCA and DNR-CC status. Following discussions about the differences in these status, requested DNR-CCA, no intubation status, no aggressive measures including access/pressors, no imaging or procedures. Advanced Care Planning Face to Face Time: 16 minutes. Charges/Coding Visit Charges Inpatient E&M: 87346 Init Hosp L2 Procedures Hospitalists Procedures: 36194 Advncd Care Plan 30 Min
[2023-11-28 20:56] LABS: Magnesium 1.6 mg/dL (1.6-2.6)
--- NOTE | 2023-11-28 22:33 | ECHOD_ITS ---
Reason For Study: TIA/CVA Procedure This was a 2D Doppler, Color Flow transthoracic echocardiogram. The study was technically difficult. Exam performed portable in patient room. Left Ventricle Normal LV size. The estimated ejection fraction is 65 %. No evidence for diastolic dysfunction. No regional wall motion abnormalities noted. Right Ventricle Normal RV size. Normal systolic function. Atria The left and right atria are normal. No doppler evidence for ASD. Bubble contrast study negative for right to left interatrial shunt. Mitral Valve There is no mitral valve stenosis. No mitral valve insufficiency. Tricuspid Valve There is no tricuspid stenosis. Trivial tricuspid valve insufficiency. Pulmonary artery systolic pressure is 25 mmHg. Aortic Valve Trisinus/trileaflet aortic valve. Aortic sclerosis, no stenosis. There is no aortic stenosis. No aortic valve insufficiency. Pulmonic Valve There is no pulmonic valvular stenosis. No pulmonic valve insufficiency. Great Vessels Normal aortic root. Pericardium/Pleural No pericardial effusion. Medication Performed a rapid injection of agitated mix of 9 cc saline and 1cc air to assess for atrial septal defect. MMode/2D Measurements & Calculations LVIDd: 4.0 cm IVSd: 0.76 cm Ao root diam: 3.2 cm LVIDs: 2.5 cm LVPWd: 0.77 cm LA dimension: 3.1 cm FS: 36.1 % asc Aorta Diam: 3.0 cm Time Measurements MV dec time: 0.22 sec Doppler Measurements & Calculations MV E max timmy: 61.2 cm/sec Lat Peak E' Timmy: 4.4 cm/sec Med Peak E' Timmy: 5.1 cm/sec MV A max timmy: 86.7 cm/sec E/E' lat: 13.8 E/E' med: 12.0 MV E/A: 0.71 MV V2 max: 97.9 cm/sec MV P1/2t max timmy: 74.0 cm/sec PA V2 max: 50.6 cm/sec MV max P.8 mmHg MV P1/2t: 70.0 msec MV V2 mean: 42.8 cm/sec MV mean P.95 mmHg MV dec slope: 309.4 cm/sec2 MV V2 VTI: 27.2 cm MVA(P1/2t): 3.1 cm2 TR max timmy: 219.8 cm/sec TR max P.3 mmHg ECHO/Echo Complete Interpretation Summary The estimated ejection fraction is 65 %. No evidence for diastolic dysfunction. Ordering Physician: Johana Bautista Performed By: Porter Ocampo RCS
[2023-11-28] MEDS: 0.9% Normal Saline (500mL Bag) 500 ML 100 ML IV (23:31)
[2023-11-28] MEDS: Atorvastatin Calcium 40 MG Tablet PO (23:34)
[2023-11-28] MEDS: Pantoprazole Sodium 20 MG Tablet PO (23:34)
[2023-11-28] MEDS: 0.9% Saline Lock 10 ML Syringe IV (23:37)
[2023-11-28] MEDS: Aspirin 325 MG Tablet PO (23:44)
[2023-11-29] MEDS: Magnesium Sulfate 2 GM in Dextrose 5%-Water (100mL Bag) 100 ML IV (02:50)
[2023-11-29 02:52] VITALS: BP 120/81; PULSE 70; RESP 18; TEMP 36.6; O2SAT 97
[2023-11-29 03:09] VITALS: BMI 21.8
[2023-11-29 05:39] VITALS: BMI 21.7
[2023-11-29 05:40] LABS: Absolute Lymphocyte Count 1.05 X10^3/uL (0.83-4.51); Absolute Neutrophil Count 3.3 X10^3/uL (2.0-7.7); Basophil# 0.01 X10^3/uL; Basophil% 0.2 % (0-1); Hematocrit 30.7 % (37-47); Hemoglobin 10.1 g/dL (12.0-15.0); Lymphocyte # 1.05 X10^3/ul (0.83-4.51); Lymphocyte % 21.7 % (19-41); Mean Corp Hgb Conc 32.9 g/dL (32-36); Mean Corpuscular Hgb 30.9 pg (27.0-32.0); Mean Corpuscular Volume 93.9 fL (81-99); Mean Platelet Vol. 8.9 fl (6.2-12.0); Monocyte# 0.48 X10^3/uL; Monocyte% 9.9 % (0-10); NRBC Flagged by Analyzer 0 % (0-5); Neutrophil # 3.26 X10^3/uL (2.7-7.7); Neutrophil % 67.6 % (47-70); Platelet Count 312 K/mm3 (150-450); RBC Distribution Width CV 13.2 % (11.6-14.6); RBC Distribution Width SD 45.2 fl (35.1-43.9); Red Blood Count 3.27 M/mm3 (4.2-5.4); White Blood Count 4.8 K/mm3 (4.4-11.0)
[2023-11-29] MEDS: Levothyroxine 75 MCG Tablet PO (06:15)
[2023-11-29 06:19] LABS: ALB/GLOB Ratio 0.5 RATIO (0.9-2.4); AST(SGOT) 17 U/L (15-37); Alanine Aminotransfer ALT/SGPT 15 U/L (13-56); Albumin, Serum 2.1 g/dL (3.2-5.0); Alkaline Phosphatase 56 U/L (45-117); Anion Gap 8 (5-15); BUN 14 mg/dL (7-18); BUN/Creat Ratio 14.3 RATIO (10-20); Chloride 104 mmol/L (98-107); Cholesterol 136 mg/dL (200); Creatinine, Serum 0.98 mg/dL (0.55-1.02); EST Glomerular Filtration Rate 57 mL/min (>60); Est Glom Filt Rate - Afr Amer 69 mL/min (>60); Estimated Creatinine Clearance 29.05 ml/min; Globulin 4.3 g/dL (2.2-4.2); Glucose 108 mg/dL (74-106); High Density Lipoprotein 39 mg/dL; Potassium 3.2 mmol/L (3.5-5.1); Protein, Total 6.4 g/dL (6.4-8.2); Sodium Level 135 mmol/L (136-145); Triglycerides 89 mg/dL; Very Low Density Lipoprotein 18 mg/dL (5-40)
[2023-11-29 06:22] VITALS: BP 124/45; PULSE 69; RESP 18; TEMP 35.6; O2SAT 97
[2023-11-29 07:20] VITALS: O2SAT 96
[2023-11-29 07:31] LABS: Hemoglobin A1c 5.9 % (3.8-5.6)
--- NOTE | 2023-11-29 08:23 | PCM.PN.HOSP ---
Reason for Visit Reason for Visit: Diagnoses Transient cerebral ischemic attack, unspecified (11/28/23) Subjective Subjective Patient is an 88-year-old lady with history of left ICA stents, intracranial aneurysm, who presented with transient aphasia and dysarthria. CT of the brain obtained on admission demonstrated chronic involutional changes of the brain. Admitted to monitored bed for subsequent eval Objective Data Objective Data Vital Signs: Vital Signs Temp Pulse Resp BP Pulse Ox O2 Del Method 96.0 F L 69 18 124/45 H 96 Room Air 11/29/23 06:22 11/29/23 06:22 11/29/23 06:22 11/29/23 06:22 11/29/23 07:20 11/29/23 07:20 Oxygen Delivery Method Room Air Weight: 45.8 kg Body Mass Index (BMI) 21.7 Intake & Output: Intake and Output for Last 24 Hours 11/27/23 11/28/23 11/29/23 23:59 23:59 23:59 Intake Total 120 / 120 604.00 / 604.00 Balance 120 / 120 604.00 / 604.00 Lab / Micro Data 11/29/23 05:07 11/29/23 05:07 Labs: Laboratory Results - last 24 hr 11/28/23 13:48: WBC 7.3, RBC 3.93 L, Hgb 11.7 L, Hct 37.6, MCV 95.7, MCH 29.8, MCHC 31.1 L, RDW Std Deviation 46.3 H, RDW Coeff of Sagar 13.1, Plt Count 394, MPV 8.9, Immature Gran % (Auto) 0.600, Neut % (Auto) 87.1 H, Lymph % (Auto) 9.0 L, [place] % (Auto) 3.2, Eos % (Auto) 0.0, Baso % (Auto) 0.1, Absolute Neuts (auto) 6.3, Absolute Lymphs (auto) 0.65 L, Nucleated RBC % 0, Sodium 135 L, Potassium 3.6, Chloride 103, Carbon Dioxide 26.0, Anion Gap 6, BUN 18, Creatinine 1.03 H, Est GFR (MDRD) Af Amer 65, Est GFR (MDRD) Non-Af 54 L, BUN/Creatinine Ratio 17.5, Glucose 128 H, Calcium 9.8, Total Bilirubin 0.40, AST 19, ALT 21, Alkaline Phosphatase 76, Total Protein 8.1, Albumin 2.7 L, Globulin 5.4 H, Albumin/Globulin Ratio 0.5 L, Lipase 14 11/28/23 16:02: Urine Color Straw, Urine Clarity Clear, Urine pH 7.0, Ur Specific [place] 1.010, Urine Protein 15 H, Urine Glucose (UA) Normal, Urine Ketones Negative, Urine Occult Blood 10 H, Urine Nitrite Negative, Urine Bilirubin Negative, Urine Urobilinogen Normal, Ur Leukocyte Esterase 25 H, Urine RBC 0 SEEN, Urine WBC 0-5 SEEN, Ur Squamous Epith Cells 0-5 SEEN, Urine Bacteria 0 SEEN, Urine Mucus 0 SEEN 11/28/23 18:18: WBC 6.2, RBC 3.41 L, Hgb 10.2 L, Hct 32.1 L, MCV 94.1, MCH 29.9, MCHC 31.8 L, RDW Std Deviation 44.9 H, RDW Coeff of Sagar 13.1, Plt Count 323, MPV 8.6, Immature Gran % (Auto) 0.500, Neut % (Auto) 84.9 H, Lymph % (Auto) 8.7 L, [place] % (Auto) 5.7, Eos % (Auto) 0.0, Baso % (Auto) 0.2, Absolute Neuts (auto) 5.3, Absolute Lymphs (auto) 0.54 L, Nucleated RBC % 0, PT 14.0, INR 1.1, APTT 30.7, Sodium 132 L, Potassium 3.5, Chloride 98, Carbon Dioxide 25.0, Anion Gap 8, BUN 16, Creatinine 0.88, Est GFR (MDRD) Af Amer 78, Est GFR (MDRD) Non-Af 64, BUN/Creatinine Ratio 18.1, Glucose 103, Calcium 8.9, Troponin I High Sens 6, POC Glucose 81 11/28/23 18:21: Magnesium 1.6 11/29/23 05:07: WBC 4.8, RBC 3.27 L, Hgb 10.1 L, Hct 30.7 L, MCV 93.9, MCH 30.9, MCHC 32.9, RDW Std Deviation 45.2 H, RDW Coeff of Sagar 13.2, Plt Count 312, MPV 8.9, Immature Gran % (Auto) 0.600, Neut % (Auto) 67.6, Lymph % (Auto) 21.7, [place] % (Auto) 9.9, Eos % (Auto) 0.0, Baso % (Auto) 0.2, Absolute Neuts (auto) 3.3, Absolute Lymphs (auto) 1.05, Nucleated RBC % 0, Sodium 135 L, Potassium 3.2 L, Chloride 104, Carbon Dioxide 24.0, Anion Gap 8, BUN 14, Creatinine 0.98, Estim Creat Clear Calc 29.05, Est GFR (MDRD) Af Amer 69, Est GFR (MDRD) Non-Af 57 L, BUN/Creatinine Ratio 14.3, Glucose 108 H, Hemoglobin A1c 5.9 H, Calcium 9.0, Total Bilirubin 0.30, AST 17, ALT 15, Alkaline Phosphatase 56, Total Protein 6.4, Albumin 2.1 L, Globulin 4.3 H, Albumin/Globulin Ratio 0.5 L, Triglycerides 89, Cholesterol 136, LDL Cholesterol 79, VLDL Cholesterol 18, HDL Cholesterol 39 L, TSH 2.630 Radiography Diagnostic Testing: Radiology Impression Abdomen/Pelvis CT 11/28/23 15:08 IMPRESSION: No definite acute or significant abnormality seen. Electronically Signed: Naldo Turk MD at 16:15 EDT , Brain CT 11/28/23 18:03 IMPRESSION: Chronic involutional changes of the brain. N.B. : The above Results were Read Back by Toni Palomo MD to Jitendra Santa MD, and understanding confirmed on 11/28/2023 18:32:26 (ET). Electronically Signed: Toni Palomo MD at 18:34 EDT , ADDENDUM: 11/28/23 1841 IMPRESSION: Chronic involutional changes of the brain. N.B. : The above Results were Read Back by Toni Palomo MD to Jitendra Santa MD, and understanding confirmed on 11/28/2023 18:32:26 (ET). Electronically Signed: Toni Palomo MD at 18:34 EDT , Head/Neck CTA 11/28/23 18:03 IMPRESSION: Left middle cerebral artery aneurysm. Mild narrowing of the internal carotid arteries. No hemodynamically significant internal carotid artery stenosis. N.B. : The above Results were Read Back by Toni Palomo MD to Jitendra Santa MD, and understanding confirmed on 11/28/2023 19:15:03 (ET). Electronically Signed: Toni Palomo MD at 19:16 EDT Reading Location ID and State: [address] [place] [address] , Service support , ADDENDUM: 11/28/23 1923 IMPRESSION: Left middle cerebral artery aneurysm. Mild narrowing of the internal carotid arteries. No hemodynamically significant internal carotid artery stenosis. N.B. : The above Results were Read Back by Toni Palomo MD to Jitendra Santa MD, and understanding confirmed on 11/28/2023 19:15:03 (ET). Electronically Signed: Toni Palomo MD at 19:16 EDT Reading Location ID and State: [facility] / [place] , Service support , Chest X-Ray 11/28/23 19:00 IMPRESSION: Degenerative changes, as described above. No demonstrated acute cardiopulmonary process. Electronically Signed: Toni Palomo MD at 20:24 EDT , Physical Exam Narrative GENERAL: cooperative HEENT: Atraumatic; normocephalic EYES; Anicteric, Normal Conjunctiva NECK; supple, normal thyroid, RESPIRATORY: Diminished to auscultation CARDIOVASCULAR: Regular S1 S2, GI: soft, normoactive bowel sounds, : No Renal angle tenderness; EXTREMITIES: No edema, no clubbing, MUSCULOSKELETAL: no muscle wasting NEURO: Awake; no lateralizing signs. SKIN: No Rash PSYCH; Flat affect Assessment & Plan Assessment/Plan (1) TIA (transient ischemic attack): PLAN: Plan Patient is an 88-year-old lady with history of left ICA stents, intracranial aneurysm, who presented with transient aphasia and dysarthria. CT of the brain obtained on admission demonstrated chronic involutional changes of the brain. Admitted to monitored bed for subsequent eval 1. Transient ischemic attack ? CT of the brain obtained on admission demonstrated chronic involutional changes of the brain. Admitted to monitored bed for subsequent eval. As part of her management ordered every 4 neurochecks, MRI of the brain pending clearance by radiology and consultation placed to [facility]. Patient is currently requesting no further imaging studies including MRI and CT citing her advanced age. The previously imaging studies ordered discontinued. Plan is for patient to be discharged following evaluation by [facility] 2. Acute gastroenteritis ? Managed symptomatically 3. History of left ICA aneurysm ? Status post stent placement consult placed to [facility], old records requested for 4. Essential hypertension ? Given patient presentation currently pursuing permissive hypertension until stroke is ruled out 5. Hypothyroidism ? Patient is on levothyroxine home dose continued 6. Generalized osteoarthritis ? Patient is on meloxicam at home plan is to resume on discharge 7. Overactive bladder ? Patient is on oxybutynin plan is to resume on discharge 8. GERD ? Patient is on PPI 9. DVT prophylaxis ? On enoxaparin Time spent in the patient's overall evaluation,decision-making process, review of diagnostic data, adjustment of management, discussion with other providers, nursing nursing and ancillary staff involved in patient's care documentation, 38 Minutes Charges/Coding Visit Charges Inpatient E&M: 77394 Subs Hosp L2
[2023-11-29] MEDS: Tolterodine Tartrate 2 MG CAP.SA PO (09:57)
[2023-11-29] MEDS: Aspirin 81 MG TAB.CHEW PO (09:57)
[2023-11-29] MEDS: Pantoprazole Sodium 20 MG Tablet PO (09:57)
[2023-11-29] MEDS: Acetaminophen 325 MG Tablet 650 MG PO (10:10)
[2023-11-29] MEDS: oxyCODONE 5 MG Tablet PO (10:10)
[2023-11-29 10:22] VITALS: BP 122/49; PULSE 58; RESP 18; TEMP 36.4; O2SAT 99
[2023-11-29 10:52] VITALS: BMI 21.7
--- NOTE | 2023-11-29 12:42 | STROKE.CONS ---
Assessment and Plan: Stroke Assessment/Plan GIANNI ORDOÑEZ is a 88 F with a history chronic pain who presents for evaluation of worseing pain and speech changes. States could be TIA. Also had diarrhea. Refuses further imaging. Reasonable. Neurological examination shows NIH 0 . Neuroimaging shows No acute hemorrhage on CT, mild stenosis on CTA in carotids. Her s/s are likely from dehydration. - Anti-platelet medication: Aspirin 81 mg daily - Occupational/ Physical therapy consults - DVT prophylaxis with SCDs and heparin SQ - Vascular risk factor modification. The following are the recommended guidelines: LDL Goal < 70. She is at 79. Would hold statin and conitnue diet. Diabetes Management terminologist blood pressure control should achieve <130/80 mmHg. BP management should aim to achieve terminal press operator contorl in a reasonable amount of time, taking into consideration the individual patient's requirements and characteristics. Weight Management: Goal for BMI is 18.5 -24.9 kg/m2 Alcohol: No more than 2 drinks/day for men or 1 drink/day for non- women - Promote lifestyle modification: weight control, physical activity, moderation of alcohol intake, moderate sodium intake. Followup with PCP in 1-2 weeks HPI Consult Data Date of Consult: 11/29/23 HPI Narrative HPI Narrative: GIANNI ORDOÑEZ, is a 88 F who presents [facility] Medical History Impaired mobility and ADLs Difficulty in walking Anxiety Depression Non-smoker Pituitary abnormality Migraines Peptic ulcer disease Hypothyroidism Hypertension Chronic pain Home Medications ?Medication ?Instructions ?Recorded ?Last Taken ?Type amlodipine 5 mg tablet 5 mg PO DAILY 11/14/23 11/14/23 History oxybutynin chloride 5 mg 5 mg PO DAILY 11/14/23 11/28/23 History tablet,extended release 24 hr oxycodone-acetaminophen 5 mg-325 1 tab PO BID PRN pain 11/14/23 11/14/23 History mg tablet acetaminophen 500 mg tablet 1,000 mg (2 x 500 mg) PO Q8 PRN 11/16/23 11/27/23 Rx PAIN 7-10 #0 tabs levothyroxine 75 mcg tablet 75 mcg PO DAILY 11/28/23 Unknown History meloxicam 15 mg tablet 15 mg PO DAILY 11/28/23 11/28/23 History omeprazole 10 mg capsule,delayed 10 mg PO DAILY 11/28/23 11/28/23 History release sennosides 8.6 mg-docusate sodium 2 tab PO BID PRN constipation 11/28/23 11/27/23 History 50 mg tablet (Stimulant Laxative Plus) Allergy/AdvReac Type Severity Reaction Status Date / Time No Known Allergies Allergy Verified 11/28/23 13:42 Family History (Updated 11/28/23 @ 20:[address] Johana Bautista MD) Mother Lymphoma Father Liver cancer Surgical History H/O spinal fusion History of parathyroid surgery History of appendectomy Social History (Updated 11/28/23 @ 20:[address] Johana Bautista MD) household members: none Smoking Status: Never smoker alcohol intake: never substance use type: does not use Vital Signs Vital Signs Vital Signs: 11/28/23 13:43 11/28/23 16:00 11/28/23 17:00 Temperature 97.8 F Temperature Source Temporal Pulse Rate 88 86 80 Respiratory Rate 15 18 18 Respiratory Effort Respiratory Depth Respiratory Pattern Blood Pressure 106/76 142/80 H 82/60 L Blood Pressure Mean 86 100 67 Blood Pressure Source Blood Pressure Position Blood Pressure Location Pulse Ox 97 Oxygen Delivery Method Room Air 11/28/23 18:00 11/28/23 18:17 11/28/23 20:00 Temperature Temperature Source Pulse Rate 76 68 Respiratory Rate 17 16 Respiratory Effort Respiratory Depth Respiratory Pattern Blood Pressure 141/56 H Blood Pressure Mean 84 Blood Pressure Source Blood Pressure Position Blood Pressure Location Pulse Ox 98 Oxygen Delivery Method Room Air Room Air 11/28/23 20:41 11/28/23 22:00 11/28/23 22:55 Temperature 98.0 F 98.4 F Temperature Source Oral Pulse Rate 68 65 76 Respiratory Rate 16 16 18 Respiratory Effort Respiratory Depth Respiratory Pattern Blood Pressure 141/56 H 122/59 H 118/74 Blood Pressure Mean 84 80 88 Blood Pressure Source Monitor Blood Pressure Position Semi-Fowlers Blood Pressure Location Left Arm Pulse Ox 98 98 99 Oxygen Delivery Method Room Air Room Air 11/28/23 23:10 11/28/23 23:41 11/29/23 02:52 Temperature 97.8 F Temperature Source Oral Pulse Rate 70 Respiratory Rate 18 Respiratory Effort Normal Non-Labored Respiratory Depth Normal Respiratory Pattern Normal Blood Pressure 120/81 H Blood Pressure Mean 94 Blood Pressure Source Monitor Blood Pressure Position Semi-Fowlers Blood Pressure Location Right Arm Pulse Ox 98 97 Oxygen Delivery Method Room Air Room Air Room Air 11/29/23 02:55 11/29/23 06:22 11/29/23 07:20 Temperature 96.0 F L Temperature Source Oral Pulse Rate 69 Respiratory Rate 18 Respiratory Effort Normal Short of Breath Respiratory Depth Normal Respiratory Pattern Normal Blood Pressure 124/45 H Blood Pressure Mean 71 Blood Pressure Source Monitor Blood Pressure Position Semi-Fowlers Blood Pressure Location Right Arm Pulse Ox 97 96 Oxygen Delivery Method Room Air Room Air Room Air 11/29/23 09:51 11/29/23 10:22 Temperature 97.6 F L Temperature Source Oral Pulse Rate 58 L Respiratory Rate 18 Respiratory Effort Normal Non-Labored Respiratory Depth Normal Respiratory Pattern Normal Blood Pressure 122/49 H Blood Pressure Mean 73 Blood Pressure Source Monitor Blood Pressure Position Semi-Fowlers Blood Pressure Location Right Arm Pulse Ox 99 Oxygen Delivery Method Room Air Room Air Weight Weight: 45.8 kg Body Mass Index (BMI) 21.7 EEG Results Procedure Details EEG Procedure Details: GIANNI ORDOÑEZ is a 88 year old F with a past medical history of , who presents for evaluation of Electroencephalogram on DATE at TIME NIHSS NIHSS Nursing Documentation NIHSS Nursing Documentation: NIHSS: Ischemic Stroke/TIA Start: 11/28/23 22:33 Text: For PCU Patients: NIH and Neuro Check every 4 Status: Active hours, PRN and with change in RN caregiver. Freq: [id number] Protocol: Activity Type Activity Date Activity User E-sign Co-sign Detail Recorded Client Recorded Date Recorded By Document 11/29/23 10:22 JM8 [id number] 11/29/23 10:50 JM8 11/29/23 10:22 NIH Stroke Scale [NIHSS] A score of 0 is normal or asymptomatic . Total possible score is 42. Inpatient: RN or Physician to activate a stroke alert for onset of new stroke symptoms or with NIHSS increase >/= 3 points. Following change in neurological status, NIHSS will be performed per physician order or more frequently PRN. -1a. Level of Consciousness Alert; keenly responsive -1b. LOC Questions Answers BOTH questions correctly. -1c. LOC Commands Performs both tasks correctly . -2. Best Gaze Normal -3. Visual No visual loss -4. Facial Palsy Normal symmetrical movements -5a. Left Arm No drift; arm holds 90 (or 45 ) degrees for full 10 seconds -5b. Right Arm No drift; arm holds 90 (or 45 ) degrees for full 10 seconds -6a. Left Leg No drift; leg holds 30-degree position for full 5 seconds -6b. Right Leg No drift; leg holds 30-degree position for full 5 seconds -7. Limb Ataxia Absent -8. Sensory Normal; no sensory loss -9. Best Language No aphasia; normal -10. Dysarthria Normal -11. Extinction and Inattention No abnormality -Total 0 Query Text:A score of 0 is normal or asymptomatic. Total possible score is 42 . ED: Notify Physician for NIHSS increase by > / = 3 points. Inpatient: RN or Physician to activate a stroke alert for NIHSS increase of > / = 3 points. Coma Scale [Assess] -Eye Opening Spontaneous -Motor Obeys Commands -Verbal Oriented [Total] -Coma Scale Total 15 Lab / Micro Data 11/29/23 05:07 11/29/23 05:07 Labs: Laboratory Results - last 24 hr 11/28/23 13:48: WBC 7.3, RBC 3.93 L, Hgb 11.7 L, Hct 37.6, MCV 95.7, MCH 29.8, MCHC 31.1 L, RDW Std Deviation 46.3 H, RDW Coeff of [place]agar 13.1, Plt Count 394, MPV 8.9, Immature Gran % (Auto) 0.600, Neut % (Auto) 87.1 H, Lymph % (Auto) 9.0 L, [place] % (Auto) 3.2, Eos % (Auto) 0.0, Baso % (Auto) 0.1, Absolute Neuts (auto) 6.3, Absolute Lymphs (auto) 0.65 L, Nucleated RBC % 0, Sodium 135 L, Potassium 3.6, Chloride 103, Carbon Dioxide 26.0, Anion Gap 6, BUN 18, Creatinine 1.03 H, Est GFR (MDRD) Af Amer 65, Est GFR (MDRD) Non-Af 54 L, BUN/Creatinine Ratio 17.5, Glucose 128 H, Calcium 9.8, Total Bilirubin 0.40, AST 19, ALT 21, Alkaline Phosphatase 76, Total Protein 8.1, Albumin 2.7 L, Globulin 5.4 H, Albumin/Globulin Ratio 0.5 L, Lipase 14 11/28/23 16:02: Urine Color Straw, Urine Clarity Clear, Urine pH 7.0, Ur Specific [place] 1.010, Urine Protein 15 H, Urine Glucose (UA) Normal, Urine Ketones Negative, Urine Occult Blood 10 H, Urine Nitrite Negative, Urine Bilirubin Negative, Urine Urobilinogen Normal, Ur Leukocyte Esterase 25 H, Urine RBC 0 SEEN, Urine WBC 0-5 SEEN, Ur Squamous Epith Cells 0-5 SEEN, Urine Bacteria 0 SEEN, Urine Mucus 0 SEEN 11/28/23 18:18: WBC 6.2, RBC 3.41 L, Hgb 10.2 L, Hct 32.1 L, MCV 94.1, MCH 29.9, MCHC 31.8 L, RDW Std Deviation 44.9 H, RDW Coeff of [place] 13.1, Plt Count 323, MPV 8.6, Immature Gran % (Auto) 0.500, Neut % (Auto) 84.9 H, Lymph % (Auto) 8.7 L, [place] % (Auto) 5.7, Eos % (Auto) 0.0, Baso % (Auto) 0.2, Absolute Neuts (auto) 5.3, Absolute Lymphs (auto) 0.54 L, Nucleated RBC % 0, PT 14.0, INR 1.1, APTT 30.7, Sodium 132 L, Potassium 3.5, Chloride 98, Carbon Dioxide 25.0, Anion Gap 8, BUN 16, Creatinine 0.88, Est GFR (MDRD) Af Amer 78, Est GFR (MDRD) Non-Af 64, BUN/Creatinine Ratio 18.1, Glucose 103, Calcium 8.9, Troponin I High Sens 6, POC Glucose 81 11/28/23 18:21: Magnesium 1.6 11/29/23 05:07: WBC 4.8, RBC 3.27 L, Hgb 10.1 L, Hct 30.7 L, MCV 93.9, MCH 30.9, MCHC 32.9, RDW Std Deviation 45.2 H, RDW Coeff of [place]agar 13.2, Plt Count 312, MPV 8.9, Immature Gran % (Auto) 0.600, Neut % (Auto) 67.6, Lymph % (Auto) 21.7, [place] % (Auto) 9.9, Eos % (Auto) 0.0, Baso % (Auto) 0.2, Absolute Neuts (auto) 3.3, Absolute Lymphs (auto) 1.05, Nucleated RBC % 0, Sodium 135 L, Potassium 3.2 L, Chloride 104, Carbon Dioxide 24.0, Anion Gap 8, BUN 14, Creatinine 0.98, Estim Creat Clear Calc 29.05, Est GFR (MDRD) Af Amer 69, Est GFR (MDRD) Non-Af 57 L, BUN/Creatinine Ratio 14.3, Glucose 108 H, Hemoglobin A1c 5.9 H, Calcium 9.0, Total Bilirubin 0.30, AST 17, ALT 15, Alkaline Phosphatase 56, Total Protein 6.4, Albumin 2.1 L, Globulin 4.3 H, Albumin/Globulin Ratio 0.5 L, Triglycerides 89, Cholesterol 136, LDL Cholesterol 79, VLDL Cholesterol 18, HDL Cholesterol 39 L, TSH 2.630 Imaging Radiology Impression Abdomen/Pelvis CT 11/28/23 15:08 IMPRESSION: No definite acute or significant abnormality seen. Electronically Signed: Naldo Turk MD at 16:15 EDT , Brain CT 11/28/23 18:03 IMPRESSION: Chronic involutional changes of the brain. N.B. : The above Results were Read Back by Toni Palomo MD to Jitendra Santa MD, and understanding confirmed on 11/28/2023 18:32:26 (ET). Electronically Signed: Toni Palomo MD at 18:34 EDT , ADDENDUM: 11/28/23 1841 IMPRESSION: Chronic involutional changes of the brain. N.B. : The above Results were Read Back by Toni Palomo MD to Jitendra Santa MD, and understanding confirmed on 11/28/2023 18:32:26 (ET). Electronically Signed: Toni Palomo MD at 18:34 EDT , Head/Neck CTA 11/28/23 18:03 IMPRESSION: Left middle cerebral artery aneurysm. Mild narrowing of the internal carotid arteries. No hemodynamically significant internal carotid artery stenosis. N.B. : The above Results were Read Back by Toni Palomo MD to Jitendra Santa MD, and understanding confirmed on 11/28/2023 19:15:03 (ET). Electronically Signed: Toni Palomo MD at 19:16 EDT Reading Location ID and State: [address] [place] [address] , Service support , ADDENDUM: 11/28/23 1923 IMPRESSION: Left middle cerebral artery aneurysm. Mild narrowing of the internal carotid arteries. No hemodynamically significant internal carotid artery stenosis. N.B. : The above Results were Read Back by Toni Palomo MD to Jitendra Santa MD, and understanding confirmed on 11/28/2023 19:15:03 (ET). Electronically Signed: Toni Palomo MD at 19:16 EDT Reading Location ID and State: [facility] / [place] , Service support , Chest X-Ray 11/28/23 19:00 IMPRESSION: Degenerative changes, as described above. No demonstrated acute cardiopulmonary process. Electronically Signed: Toni Palomo MD at 20:24 EDT , Echocardiogram 11/28/23 22:33 Interpretation Summary The estimated ejection fraction is 65 %. No evidence for diastolic dysfunction. Ordering Physician: Johana Bautista Performed By: Porter Ocampo RCS Active Medications Active Medications Active Medications: Current Medications Generic Name Dose Route Start Last Admin Trade Name Freq PRN Reason Stop Dose Admin Acetaminophen 650 mg 11/28/23 22:33 11/29/23 10:10 Acetaminophen 325 Mg Tablet PO 650 mg Q4H PRN PRN Administration Fever, pain 1-11/22 Al Hydroxide/Mg Hydroxide 30 ml 11/28/23 22:33 Mag Hydrox/Al Hydrox/Simeth 30 Ml Udc PO Q6H PRN PRN Gastric Burning Aspirin 81 mg 11/29/23 08:00 11/29/23 09:57 Aspirin 81 Mg Tab.Chew PO 81 mg BREAKFAST JESSICA Administration Atorvastatin Calcium 40 mg 11/28/23 22:33 11/28/23 23:34 Atorvastatin Calcium 40 Mg Tablet PO 40 mg QHS JESSICA Administration Enoxaparin Sodium 30 mg 11/29/23 10:00 11/29/23 10:02 Enoxaparin 30 Mg/0.3 Ml Syringe SC Not Given DAILY JESSICA Hydralazine HCl 5 mg 11/28/23 22:33 Hydralazine 20 Mg/Ml Vial IV 11/29/23 22:33 Q30M PRN maintain BP parameters with HR <60 Sodium Chloride 100 mls @ 15 mls/hr 11/28/23 22:39 IV .Q6H40M PRN Saline Flush Sodium Chloride 100 mls @ 15 mls/hr 11/28/23 22:39 IV .Q6H40M PRN Additional IVPB Infusion Labetalol HCl 10 - 20 mg 11/28/23 22:33 Labetalol (Prefilled) 20 Mg/4 Ml Vial IV 11/29/23 22:33 Q10M PRN PRN maintain BP parameters with HR >/=60 Levothyroxine Sodium 75 mcg 11/29/23 06:00 11/29/23 06:15 Levothyroxine 75 Mcg Tablet PO 75 mcg 0600 JESSICA Administration Loperamide HCl 2 mg 10/15/24 22:33 Loperamide 2 Mg Capsule PO Q2H PRN PRN DIARRHEA Melatonin 3 mg 11/28/23 22:33 Melatonin 3 Mg Tablet PO QHS PRN PRN INSOMNIA Ondansetron HCl 4 mg 11/28/23 22:33 Ondansetron 4 Mg/2 Ml Vial IV Q8H PRN PRN NAUSEA/VOMITING Oxycodone HCl 5 mg 11/28/23 22:33 11/29/23 10:10 Oxycodone 5 Mg Tablet PO 5 mg BID PRN PRN Administration pain 1-10 Pantoprazole Sodium 20 mg 11/28/23 22:33 11/29/23 09:57 Pantoprazole Sodium 20 Mg Tablet PO 20 mg DAILY JESSICA Administration Prochlorperazine Edisylate 5 mg 11/28/23 22:33 Prochlorperazine 10 Mg/2 Ml Vial IV Q4H PRN PRN Breakthrough Nausea/Vomiting Sodium Chloride 10 - 40 ml 11/28/23 22:39 11/28/23 23:37 0.9% Saline Lock 10 Ml Syringe IV 10 ml UD PRN Administration SALINE FLUSH Tolterodine Tartrate 2 mg 11/29/23 10:00 11/29/23 09:57 Tolterodine Tartrate 2 Mg Cap.Sa PO 2 mg DAILY EJSSICA Administration
[2023-11-29 14:22] VITALS: BP 127/66; PULSE 66; RESP 18; TEMP 36.3; O2SAT 99
--- NOTE | 2023-11-29 14:23 | DS.PCM_ITS ---
Providers Date of Admission: 11/28/23 Date of Discharge: 11/29/23 Primary Care Physician: Madeline Kuhn, WATCH DIAL STONER Consultations 11/28/23 22:33 [facility] [Consult: Tele-Neurology] Routine Consulting Provider: [facility] Reason for Consult: TIA/CVA follow-up, stroke alert in the ED EMERGENT Consult: No MD Notified: Yes Date Notified: 11/29/23 Time Notified: 01:16 Method of Notification: Answering Service Comments:: Initial teleCVA mentions ?stent, unsure about MRI? Nursing Unit Staff Notify [facility] of Tele-Neurology Consult: Yes Reason For Visit: N/V/D, TIA/CVA Diagnosis Discharge Diagnosis (1) TIA (transient ischemic attack): Status: Acute Code(s): G45.9 - Transient cerebral ischemic attack, unspecified Plan Patient is an 88-year-old lady with history of left ICA stents, intracranial aneurysm, who presented with transient aphasia and dysarthria. CT of the brain obtained on admission demonstrated chronic involutional changes of the brain. Admitted to monitored bed for subsequent eval 1. Transient ischemic attack ? CT of the brain obtained on admission demonstrated chronic involutional changes of the brain. Admitted to monitored bed for subsequent eval. As part of her management ordered every 4 neurochecks, MRI of the brain pending clearance by radiology and consultation placed to [facility]. Patient is currently requesting no further imaging studies including MRI and CT citing her advanced age. The previously imaging studies ordered discontinued. Plan is for patient to be discharged following evaluation by [facility] ? Discharge home after being evaluated by [facility] 2. Acute gastroenteritis ? Managed symptomatically 3. History of left ICA aneurysm ? Status post stent placement consult placed to [facility], old records requested for 4. Essential hypertension ? Given patient presentation currently pursuing permissive hypertension until stroke is ruled out 5. Hypothyroidism ? Patient is on levothyroxine home dose continued 6. Generalized osteoarthritis ? Patient is on meloxicam at home plan is to resume on discharge 7. Overactive bladder ? Patient is on oxybutynin plan is to resume on discharge 8. GERD ? Patient is on PPI 9. DVT prophylaxis ? On enoxaparin Time spent in the patient's overall evaluation,decision-making process, review of diagnostic data, adjustment of management, discussion with other providers, nursing nursing and ancillary staff involved in patient's care documentation, 38 Minutes Medications at Discharge Home Medications amlodipine 5 mg tablet 5 mg PO DAILY 11/14/23 oxybutynin chloride 5 mg tablet,extended release 24 hr 5 mg PO DAILY 11/14/23 oxycodone-acetaminophen 5 mg-325 mg tablet 1 tab PO BID PRN pain 11/14/23 acetaminophen 500 mg tablet 1,000 mg (2 x 500 mg) PO Q8 PRN PAIN 7-10 #0 tabs 11/16/23 levothyroxine 75 mcg tablet 75 mcg PO DAILY 11/28/23 meloxicam 15 mg tablet 15 mg PO DAILY 11/28/23 omeprazole 10 mg capsule,delayed release 10 mg PO DAILY 11/28/23 sennosides 8.6 mg-docusate sodium 50 mg tablet (Stimulant Laxative Plus) 2 tab PO BID PRN constipation 11/28/23 aspirin 81 mg chewable tablet 81 mg PO BREAKFAST 90 days #90 tabs 11/29/23 Physical Exam Narrative GENERAL: cooperative HEENT: Atraumatic; normocephalic EYES; Anicteric, Normal Conjunctiva NECK; supple, normal thyroid, RESPIRATORY: Diminished to auscultation CARDIOVASCULAR: Regular S1 S2, GI: soft, normoactive bowel sounds, : No Renal angle tenderness; EXTREMITIES: No edema, no clubbing, MUSCULOSKELETAL: no muscle wasting NEURO: Awake; no lateralizing signs. SKIN: No Rash PSYCH; Flat affect Medical Records Data Medical Nutrition Assessment Dietitian: Malnutrition Criteria Met Start: 11/29/23 13:58 Freq: Status: Active Protocol: Document 11/29/23 13:58 SB (Rec: 11/29/23 13:58 SB [id number]) Nutrition Malnutrition Evidence of Malnutrition Exists Yes Malnutrition (severe): Acute Illness/Injury Evidenced By Suboptimal Energy Intake ( Severe),Weight Loss (Severe) Clinical Problem Acute Disease or Injury Related Malnutrition Etiology severe related to inadequate oral intake Signs/Symptoms as evidenced by PO meeting <50 % of estimated nutrition needs x 1-2 months and 3.7% unintentional weight loss x < 1 week, per pt report. Status Active Problem Recommendation Dietitian Recommendations/Changes Adjust to regular diet d/t signs and symptoms of ONS. RD offered ONS, pt denied. Will offer again at time of follow up. Will monitor weight, as available. Reviewed and approved by Chastity Castro RDN,LD. Weight / BMI Weight Weight: 45.8 kg Body Mass Index (BMI) 21.7 ABG / Lab / Microbiology Data 11/29/23 05:07 11/29/23 05:07 Laboratory: Laboratory Results - last 24 hr 11/28/23 13:48: Lipase 14 11/28/23 16:02: Urine Color Straw, Urine Clarity Clear, Urine pH 7.0, Ur Specific [place] 1.010, Urine Protein 15 H, Urine Glucose (UA) Normal, Urine Ketones Negative, Urine Occult Blood 10 H, Urine Nitrite Negative, Urine Bilirubin Negative, Urine Urobilinogen Normal, Ur Leukocyte Esterase 25 H, Urine RBC 0 SEEN, Urine WBC 0-5 SEEN, Ur Squamous Epith Cells 0-5 SEEN, Urine Bacteria 0 SEEN, Urine Mucus 0 SEEN 11/28/23 18:18: WBC 6.2, RBC 3.41 L, Hgb 10.2 L, Hct 32.1 L, MCV 94.1, MCH 29.9, MCHC 31.8 L, RDW Std Deviation 44.9 H, RDW Coeff of Sagar 13.1, Plt Count 323, MPV 8.6, Immature Gran % (Auto) 0.500, Neut % (Auto) 84.9 H, Lymph % (Auto) 8.7 L, [place] % (Auto) 5.7, Eos % (Auto) 0.0, Baso % (Auto) 0.2, Absolute Neuts (auto) 5.3, Absolute Lymphs (auto) 0.54 L, Nucleated RBC % 0, PT 14.0, INR 1.1, APTT 30.7, Sodium 132 L, Potassium 3.5, Chloride 98, Carbon Dioxide 25.0, Anion Gap 8, BUN 16, Creatinine 0.88, Est GFR (MDRD) Af Amer 78, Est GFR (MDRD) Non-Af 64, BUN/Creatinine Ratio 18.1, Glucose 103, Calcium 8.9, Troponin I High Sens 6, POC Glucose 81 11/28/23 18:21: Magnesium 1.6 11/29/23 05:07: WBC 4.8, RBC 3.27 L, Hgb 10.1 L, Hct 30.7 L, MCV 93.9, MCH 30.9, MCHC 32.9, RDW Std Deviation 45.2 H, RDW Coeff of Sagar 13.2, Plt Count 312, MPV 8.9, Immature Gran % (Auto) 0.600, Neut % (Auto) 67.6, Lymph % (Auto) 21.7, [place] % (Auto) 9.9, Eos % (Auto) 0.0, Baso % (Auto) 0.2, Absolute Neuts (auto) 3.3, Absolute Lymphs (auto) 1.05, Nucleated RBC % 0, Sodium 135 L, Potassium 3.2 L, Chloride 104, Carbon Dioxide 24.0, Anion Gap 8, BUN 14, Creatinine 0.98, Estim Creat Clear Calc 29.05, Est GFR (MDRD) Af Amer 69, Est GFR (MDRD) Non-Af 57 L, BUN/Creatinine Ratio 14.3, Glucose 108 H, Hemoglobin A1c 5.9 H, Calcium 9.0, Total Bilirubin 0.30, AST 17, ALT 15, Alkaline Phosphatase 56, Total Protein 6.4, Albumin 2.1 L, Globulin 4.3 H, Albumin/Globulin Ratio 0.5 L, Triglycerides 89, Cholesterol 136, LDL Cholesterol 79, VLDL Cholesterol 18, HDL Cholesterol 39 L, TSH 2.630 Radiography Diagnostic Testing: Radiology Impression Abdomen/Pelvis CT 11/28/23 15:08 IMPRESSION: No definite acute or significant abnormality seen. Electronically Signed: Naldo Turk MD at 16:15 EDT , Brain CT 11/28/23 18:03 IMPRESSION: Chronic involutional changes of the brain. N.B. : The above Results were Read Back by Toni Palomo MD to Jitendra Santa MD, and understanding confirmed on 11/28/2023 18:32:26 (ET). Electronically Signed: Toni Palomo MD at 18:34 EDT , ADDENDUM: 11/28/23 1841 IMPRESSION: Chronic involutional changes of the brain. N.B. : The above Results were Read Back by Toni Palomo MD to Jitendra Santa MD, and understanding confirmed on 11/28/2023 18:32:26 (ET). Electronically Signed: Toni Palomo MD at 18:34 EDT Reading Location ID and State: [address] [place] [address] , Service support , Head/Neck CTA 11/28/23 18:03 IMPRESSION: Left middle cerebral artery aneurysm. Mild narrowing of the internal carotid arteries. No hemodynamically significant internal carotid artery stenosis. N.B. : The above Results were Read Back by Toni Palomo MD to Jitendra Santa MD, and understanding confirmed on 11/28/2023 19:15:03 (ET). Electronically Signed: Toni Palomo MD at 19:16 EDT Reading Location ID and State: [address] [place] [address] , Service support , ADDENDUM: 11/28/23 1923 IMPRESSION: Left middle cerebral artery aneurysm. Mild narrowing of the internal carotid arteries. No hemodynamically significant internal carotid artery stenosis. N.B. : The above Results were Read Back by Toni Palomo MD to Jitendra Santa MD, and understanding confirmed on 11/28/2023 19:15:03 (ET). Electronically Signed: Toni Palomo MD at 19:16 EDT Reading Location ID and State: [facility] / [place] , Service support , Chest X-Ray 11/28/23 19:00 IMPRESSION: Degenerative changes, as described above. No demonstrated acute cardiopulmonary process. Electronically Signed: Toni Palomo MD at 20:24 EDT , Echocardiogram 11/28/23 22:33 Interpretation Summary The estimated ejection fraction is 65 %. No evidence for diastolic dysfunction. Ordering Physician: Johana Bautista Performed By: Porter Ocampo RCS D/C Instructions Discharge Diet: No restrictions Discharge Activity: Return to Normal Activity Call your doctor if you observe: Fever of 101 or Higher, Shortness of breath, Fainting spells and Chest pain Meaningful Use Info Meaningful Use Meaningful Use Diagnoses (Choose all that apply): None applicable Ischemic Stroke Statin Dosing Therapy Reference: STATIN DOSE THERAPY REFERENCE: * Patients > 75 years receive moderate or high dose statin therapy. * Patients 75 years or YOUNGER should receive HIGH intensity statin dose unless contraindicated. You will be required to document reason for non-treatment if statin daily dose does not meet guidelines. HIGH DOSE STATIN THERAPY DAILY Atorvastatin > than or = to 40 mg Rosuvastatin > than or = to 20 mg Amlodipine + Atorvastatin > than or = to 2.5/40 mg Ezetimibe + Simvastatin 10/80 mg Simvastatin 80mg Discharge Plan Admission Admit Date/Time: 11/28/23 20:23 Attending Provider: Osmani Thomas Primary Care Provider: Madeline Kuhn Consulting Providers: Isidro Portillo; Augustin Steven; Sammi Horowitz; Garima Santana; Alice Arguelles; Yariel Guallpa; Rina Ruvalcaba; Luis Fernando Hernadez; Serge Lim; oFrtino Workman; Elva Pinedo; Leland Rodgers; Dayan Pleitez; Mahendra Noble; Chen Luna; Kikr Fowler; Arabella Rincon; Derek Ferrari; Rosette Dotson; Rosangela Huggins; Johana Bautista Discharge Orders/Prescriptions Prescriptions: New aspirin 81 mg Tablet,Chewable 81 mg PO BREAKFAST 90 Days Qty: 90 0RF Continued amlodipine 5 mg tablet 5 mg PO DAILY oxycodone-acetaminophen 5-325 mg tablet 1 tab PO BID PRN (Reason: pain) oxybutynin chloride 5 mg tablet extended release 24hr 5 mg PO DAILY acetaminophen 500 mg Tablet 1,000 mg PO Q8 PRN (Reason: PAIN 7-10) Qty: 0 0RF Rx Instructions: Advised [id number] 1 g Q8 hourly as needed for moderate-severe pain omeprazole 10 mg capsule,delayed release(DR/EC) 10 mg PO DAILY levothyroxine 75 mcg tablet 75 mcg PO DAILY meloxicam 15 mg tablet 15 mg PO DAILY sennosides-docusate sodium [Stimulant Laxative Plus] 8.6-50 mg Tablet 2 tab PO BID PRN (Reason: constipation) Rx Instructions: Imms-osz-opnpymh pain Referrals / Follow Up: Madeline Kuhn WATCH DIAL STONER [Primary Care Provider] - Within 2 Weeks Disposition Disposition (needs filled in before D/C Order can be placed): Home, Self Care Charges/Coding Visit Charges Inpatient E&M: 25942 Disch Hosp >30min
[2023-11-29 16:19] VITALS: BP 127/66; PULSE 66; RESP 18; TEMP 36.3; O2SAT 99
== END 2023-11-29 18:12 | disposition home or self-care (01) ==
LOC: ED 21:34 → PCU 21:58
PROVIDERS: Admitting Provider Family Medicine; Emergency Provider Emergency Medicine; PCP Clinical Nurse Specialist Adult Health; Visit Provider Internal Medicine
DX: G45.9 Transient cerebral ischemic attack, unspecified (principal); K52.9 Noninfective gastroenteritis and colitis, unspecified; R47.81 Slurred speech; G89.4 Chronic pain syndrome; I10 Essential (primary) hypertension; Z79.899 Other long term (current) drug therapy; E03.9 Hypothyroidism, unspecified; Z79.890 Hormone replacement therapy; R47.01 Aphasia; R47.1 Dysarthria and anarthria; K21.9 Gastro-esophageal reflux disease without esophagitis; N32.81 Overactive bladder; M19.90 Unspecified osteoarthritis, unspecified site; E43 Unspecified severe protein-calorie malnutrition; Z68.21 Body mass index [BMI] 21.0-21.9, adult
CPT/HCPCS: 36415; 70450; 70496; 70498; 71045; 74177; 80048; 80053; 80061; 81001; 82962; 83036; 83690; 83735; 84443; 84484; 85025; 85610; 85730; 92523; 93005; 93306; 94668; 94762; 96360; 96361; 97161; 97802; 99221; 99284; J7040; Q9957; Q9967; A4216; G0378

== ENCOUNTER 2023-12-30 07:23 | Emergency (ER) | payer MEDICARE, SELFPAY ==
[2023-12-30 07:25] VITALS: BP 113/80; PULSE 87; RESP 18; TEMP 36.7; O2SAT 98; BMI 23.4
[2023-12-30] MEDS: oxyCODONE 5 MG Tablet PO (08:21)
--- NOTE | 2023-12-30 09:41 | ED.RN ---
PT VERY UNHAPPY SHE IS STILL IN PAIN. SHE TALKED WITH DR. ROJO THEN THIS NURSE STATES SHE DOES NOT WANT TO TALK TO A [employer]UB[employer]CTS FABRICATOR. SHE WILL GO HOME AND BE MISERABLE. STATES THAT SHE WILL TRY TO CALL HER NEIGHBOR FOR A RIDE. EXPRESSED TO PT OPTIONS PT STATES I DO NOT CARE. JUST GET ME OUT OF HERE
[2023-12-30 09:43] VITALS: BP 112/78; PULSE 64; RESP 18; TEMP 36.6; O2SAT 99
--- NOTE | 2023-12-30 15:44 | EX.ED.DYSGE1 ---
HPI History of Present Illness Chief Complaint: Back Narrative Narrative: Patient is a 88-year-old female who is presenting to the ER today by EMS secondary to acute on chronic lower back pain. Patient lives at home by herself, patient uses a cane and a walker. Patient is prescribed oxycodone. Patient took her last oxycodone tablet last night around midnight. Patient has a prescription at [facility] for additional pain medication from pain management, she has not picked them up yet. Patient has chronic radiculopathy down bilateral lower extremities. She has no saddle anesthesia or cauda equina. She has no rash. Patient has no fever or chills. No abdominal pain nausea or vomiting. Patient is currently working on getting into a chcf facility that her family is helping establish. Patient's son lives in [place]. Patient was having more pain this morning, frustrated when he came in by EMS. Patient had no fall, no recent injury yesterday or today. Patient has been having pain for months. No bowel or bladder changes, no other acute complaints. No urinary or stool incontinence. [facility] Medical History Impaired mobility and ADLs Difficulty in walking Anxiety Depression Non-smoker Pituitary abnormality Migraines Peptic ulcer disease Hypothyroidism Hypertension Chronic pain Home Medications ?Medication ?Instructions ?Recorded ?Last Taken ?Type oxybutynin chloride 5 mg 5 mg PO DAILY 11/14/23 11/28/23 History tablet,extended release 24 hr oxycodone-acetaminophen 5 mg-325 1 tab PO BID PRN pain 11/14/23 11/14/23 History mg tablet levothyroxine 75 mcg tablet 75 mcg PO DAILY 11/28/23 Unknown History meloxicam 15 mg tablet 15 mg PO DAILY 11/28/23 11/28/23 History omeprazole 10 mg capsule,delayed 10 mg PO DAILY 11/28/23 11/28/23 History release sennosides 8.6 mg-docusate sodium 2 tab PO BID PRN constipation 11/28/23 11/27/23 History 50 mg tablet (Stimulant Laxative Plus) aspirin 81 mg chewable tablet 81 mg PO BREAKFAST 90 days #90 tabs 11/29/23 Unknown Rx pantoprazole 20 mg tablet,delayed 20 mg PO DAILY 12/30/23 Unknown History release prednisone 10 mg tablet 30 mg PO DAILY 12/30/23 Unknown History Allergy/AdvReac Type Severity Reaction Status Date / Time No Known Allergies Allergy Verified 12/30/23 07:29 Family History (Updated 11/28/23 @ 20:[address] Johana Bautista MD) Mother Lymphoma Father Liver cancer Surgical History H/O spinal fusion History of parathyroid surgery History of appendectomy Social History (Updated 11/28/23 @ 20:[address] Johana Bautista MD) household members: none Smoking Status: Never smoker alcohol intake: never substance use type: does not use ROS ROS ED ROS Narrative REVIEW OF SYSTEMS: Unless otherwise stated in this report the patient's positive and negative responses for review of systems for constitutional, eyes, ENT, cardiovascular, respiratory, gastrointestinal, neurological, , musculoskeletal, and integument systems and related systems to the presenting problem are either stated in the history of present illness or were not pertinent or were negative for the symptoms and/or complaints related to the presenting medical problem. EXAM Physical Exam Narrative Exam Narrative: Vital signs reviewed and patient is not hypoxic. General: The patient appears mild distress secondary to pain, tearful due to her chronic pain. patient is resting uncomfortably on cart. Not toxic, lethargic, or listless. Skin: Warm, dry, no pallor noted. There is no rash noted. Head: Normocephalic, atraumatic Eye: Normal conjunctiva, no drainage, EOMI. PERRL. Ears, Nose, Mouth, and Throat: oral mucosa is moist. Nares patent. Mouth without vesicles. Cardiovascular: Regular Rate and Rhythm, no murmurs, gallops, or rubs Respiratory: Patient is in no distress, no accessory muscle use, lungs are clear to auscultation, no wheezing, rales or rhonchi Back: Patient has moderate bilateral paralumbar tenderness to palpation, patient has moderate L4-S1 midline tenderness palpation that is chronic, not new. No rash, no Neil, abscess, redness, erythema, or any signs of infection. Non-tender, no CVA tenderness bilaterally to percussion. NO CTLS midline or paraspinal tenderness to palpation. GI: Soft, no tenderness to palpation, no masses appreciated. No rebound, guarding, or rigidity noted. No pulsatile mass, no flank pain bilateral. Musculoskeletal: The patient has full range of motion of all extremities and joints with no difficulty. Patient has no motor, no sensory deficits. Neurological: A&O x4, normal speech, no focal neurological deficits. Psychiatric: Cooperative Const Vital Signs: 12/30/23 07:25 12/30/23 09:43 Temperature 98.0 F 97.8 F Temperature Source Oral Pulse Rate 87 64 Respiratory Rate 18 18 Blood Pressure 113/80 112/78 Blood Pressure Mean 91 89 Pulse Ox 98 99 Oxygen Delivery Method Room Air MDM MDM MDM Narrative Medical decision making narrative: I have spent with for bedside visits 35 to 40 minutes at bedside with patient combined. Multiple different discussions on ordering lab test, CAT scans, x-rays, benefits of MRI, treating her chronic pain, giving her pain medication now, getting social workers and casework specialist involved to help with her transition to pen[facility]. Anytime I bring up social workers or casework specialist, she is tearful and does not want to talk to them because she states that she is talked to them several times. I still try to encourage the patient to talk to them, but they cannot be down here until 9 AM. Patient arrived in the ER at approximately 7:30 AM. Patient did not want to wait to talk to the social sciences department chair. After multiple bedside visits, ultimately patient has decided that she wants to go home, and had no testing, and she will continue to work with her family to transition to penitentiary. Patient was given a oxycodone tablet. Patient declined any lab testing, radiographic imaging, did not want to be admitted to the hospital or try to be placed in rehab. Patient wants to go home. Patient has a functional decision making capacity to decline any testing at this time and she is to go home. Discharge Plan Triage Chief Complaint: Back ED Provider: Alban Martinez Dx/Rx/DC Orders Clinical Impression: Chronic pain, Chronic lumbar radiculopathy Instructions: Understanding Chronic Pain, ED Back Care Tips, ED Chronic Pain Prescriptions: No Action oxycodone-acetaminophen 5-325 mg tablet 1 tab PO BID PRN (Reason: pain) oxybutynin chloride 5 mg tablet extended release 24hr 5 mg PO DAILY omeprazole 10 mg capsule,delayed release(DR/EC) 10 mg PO DAILY levothyroxine 75 mcg tablet 75 mcg PO DAILY meloxicam 15 mg tablet 15 mg PO DAILY sennosides-docusate sodium [Stimulant Laxative Plus] 8.6-50 mg Tablet 2 tab PO BID PRN (Reason: constipation) Rx Instructions: Zlsp-zby-laeosbi pain aspirin 81 mg Tablet,Chewable 81 mg PO BREAKFAST 90 Days Qty: 90 0RF prednisone 10 mg tablet 30 mg PO DAILY pantoprazole 20 mg tablet,delayed release (DR/EC) 20 mg PO DAILY Primary Care Provider: Madeline Kuhn Referrals: Madeline Kuhn, CARDIOVASCULAR SURGICAL TECH [Primary Care Provider] - Activity Restrictions/Additional Instructions: Follow-up with your PCP. Continue to work with your family on helping selling her house, and placement into a chcf. Continue medication as prescribed. Be cautious of constipation opiates causing constipation. Avoid heat, use ice 20 minutes on, 20 minutes off. Perform stretching exercises as tolerated. Print Language: Bermudian Disposition Disposition: Home, Self Care Discharge Date/Time: 12/30/23 10:05
== END 2023-12-30 10:05 | disposition home or self-care (01) ==
PROVIDERS: Emergency Provider Emergency Medicine; PCP Clinical Nurse Specialist Adult Health; Visit Provider Emergency Medicine
DX: M54.16 Radiculopathy, lumbar region (principal); G89.29 Other chronic pain
CPT/HCPCS: 99284

== ENCOUNTER 2024-01-02 13:11 | Observation (INO) | payer MEDICARE, SELFPAY ==
[2024-01-02] VITALS (14 sets, daily range): BP systolic 102–136; BP diastolic 36–89; PULSE 74–96; RESP 12–29; TEMP 36.4–39.7; O2SAT 27–100; BMI 23.3; BMI 18.6
--- NOTE | 2024-01-02 13:32 | EKG12_ITS ---
Test Reason : Blood Pressure : */* mmHG Vent. Rate : 81 BPM Atrial Rate : 81 BPM P-R Int : 148 ms QRS Dur : 78 ms QT Int : 342 ms P-R-T Axes : 68 39 54 degrees QTcB Int : 397 ms Normal sinus rhythm T wave abnormality, consider anterior ischemia Abnormal ECG Confirmed by RAIN COYLE, MISAEL ([id number]), supervising film or videotape editor ANGELI HAWKINS ([id number]) on 01/03/2024 8:15:47 AM Referred By: Confirmed By: MISAEL RODRIGEZ MD
--- NOTE | 2024-01-02 13:32 | CT_ITS ---
STUDY: CT BRAIN WITHOUT CONTRAST REASON FOR EXAM: Female, 88 years old. GCS 7. Altered mental status. RADIATION DOSAGE (If Supplied By Facility): CTDIvol = ( 44.99 ) mGy, DLP = ( 779.24 ) mGycm TECHNIQUE: Transaxial CT imaging of the brain was performed without administration of intravenous contrast material. Individualized dose optimization techniques were used for this CT. COMPARISON: Comparison is made with prior study November 28, 2023. FINDINGS: Normal soft tissue structures. There is hyperostosis frontalis internus. There is mild cerebral atrophy with widening of the extra-axial spaces and ventricular dilatation. There are areas of decreased attenuation within the white matter tracts of the supratentorial brain, consistent with microvascular disease changes. Normal basal ganglia and thalami. Normal brainstem. Normal cerebellum. There is no intracranial hemorrhage. There are no findings of an acute ischemic infarction. Atherosclerotic plaque formation of the cavernous portions of the internal carotid arteries bilaterally. 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 Small polyp or mucosal retention cyst at the base of the right maxillary sinus. CT/Brain/Head without Contrast IMPRESSION: Chronic involutional changes of the brain. Electronically Signed: Selvin Thompson MD at 14:10 EST ,
[2024-01-02 13:45] LABS: Mucous, Urine 0 SEEN /hpf (<or=2+); Squamous Epithelial Cells - UA 0 SEEN /hpf (5-10)
[2024-01-02 13:45] LABS: Absolute Lymphocyte Count 0.25 X10^3/uL (0.83-4.51); Absolute Neutrophil Count 8.8 X10^3/uL (2.0-7.7); Basophil# 0.05 X10^3/uL; Basophil% 0.5 % (0-1); Eosinophil# 0.18 X10^3/uL; Eosinophils% 1.9 % (0-5); Hematocrit 38.6 % (37-47); Hemoglobin 12.5 g/dL (12.0-15.0); Lymphocyte # 0.25 X10^3/ul (0.83-4.51); Lymphocyte % 2.6 % (19-41); Mean Corp Hgb Conc 32.4 g/dL (32-36); Mean Corpuscular Hgb 29.4 pg (27.0-32.0); Mean Corpuscular Volume 90.8 fL (81-99); Mean Platelet Vol. 10.6 fl (6.2-12.0); Monocyte# 0.12 X10^3/uL; Monocyte% 1.3 % (0-10); NRBC Flagged by Analyzer 0 % (0-5); Neutrophil # 8.79 X10^3/uL (2.7-7.7); Neutrophil % 92.9 % (47-70); POSITIVE COUNT YES; POSITIVE DIFFERENTIAL YES; Platelet Count 68 K/mm3 (150-450); Red Blood Count 4.25 M/mm3 (4.2-5.4); White Blood Count 9.5 K/mm3 (4.4-11.0)
[2024-01-02 13:47] LABS: Color, Urine Yellow (Yellow); Glucose, Dipstick Normal (Normal); Ketone-Dipstick 50 mg/dl (Negative); Leukocyte Esterase-Dipstick 100 /ul (Negative); Nitrite-Dipstick Positive (Negative); Occult Blood-Urine 250 /ul (Negative); Protein-Dipstick 100 mg/dl (Negative); Specific Gravity, Urine 1.015 (1.002-1.030); Urine Bilirubin Dipstick Negative (Negative); Urine Clarity Cloudy (Clear); Urine Urobilinogen Normal (Normal)
--- NOTE | 2024-01-02 13:48 | EDS_ITS ---
HPI History of Present Illness Chief Complaint: Unresponsive Detail of Chief Complaint: Unresponsiveness. Limited: stupor Onset/Context/Timing Onset: - (Patient was seen on December [address] Martinez for chronic lumbar radicular pain and on the for diarrhea.) Context: Sudden Onset (Presumed) Timing: Continuous Quality: Unable to determine Location: Unable to determine Current Severity: Unable to determine Maximum Severity: Unable to determine Worsened by: Unable to determine Relieved by: Unable to determine Associated Symptoms Associated Symptoms: Unable to to obtain Narrative Narrative: Patient is a 88-year-old woman. She was found unresponsive by housekeeping.She was seen on December 29 for exacerbation of chronic low back pain. Patient reportedly took relaxed oxycodone tablets the night prior. She did have reported prescription at [facility] for additional pain medicine which she has not picked up. There is no available history at this time. Prior similar symptoms: No Recent Illness/Hospitalization: Yes [facility] Medical History Impaired mobility and ADLs Difficulty in walking Anxiety Depression Non-smoker Pituitary abnormality Migraines Peptic ulcer disease Hypothyroidism Hypertension Chronic pain Home Medications ?Medication ?Instructions ?Recorded ?Last Taken ?Type oxybutynin chloride 5 mg 5 mg PO DAILY 11/14/23 11/28/23 History tablet,extended release 24 hr oxycodone-acetaminophen 5 mg-325 1 tab PO BID PRN pain 11/14/23 11/14/23 History mg tablet levothyroxine 75 mcg tablet 75 mcg PO DAILY 11/28/23 Unknown History meloxicam 15 mg tablet 15 mg PO DAILY 11/28/23 11/28/23 History omeprazole 10 mg capsule,delayed 10 mg PO DAILY 11/28/23 11/28/23 History release sennosides 8.6 mg-docusate sodium 2 tab PO BID PRN constipation 11/28/23 11/27/23 History 50 mg tablet (Stimulant Laxative Plus) aspirin 81 mg chewable tablet 81 mg PO BREAKFAST 90 days #90 tabs 11/29/23 Unknown Rx pantoprazole 20 mg tablet,delayed 20 mg PO DAILY 12/30/23 Unknown History release prednisone 10 mg tablet 30 mg PO DAILY 12/30/23 Unknown History Allergy/AdvReac Type Severity Reaction Status Date / Time No Known Allergies Allergy Verified 01/02/24 13:19 Family History Mother Lymphoma Father Liver cancer Surgical History H/O spinal fusion History of parathyroid surgery History of appendectomy Social History household members: none Smoking Status: Never smoker alcohol intake: never substance use type: does not use ROS ROS ED Review of Systems ROS Unobtainable: due to mental status EXAM Physical Exam Const Vital Signs: 01/02/24 13:13 01/02/24 13:19 01/02/24 13:53 Temperature 97.8 F 102.1 F H Temperature Source Temporal Core Pulse Rate 79 81 Pulse Rate [1 (Initial Baseline)] Pulse Rate [2] Pulse Rate [3] Respiratory Rate 14 18 Respiratory Rate [1 (Initial Baseline)] Respiratory Rate [2] Respiratory Rate [3] Respiratory Effort Normal Non-Labored Respiratory Pattern Normal Blood Pressure 136/78 H 121/84 H Blood Pressure [1 (Initial Baseline)] Blood Pressure [2] Blood Pressure [3] Blood Pressure Mean 97 96 Pulse Ox 95 96 Oxygen Delivery Method Room Air Room Air Oxygen Delivery Method [1 (Initial Baseline)] Oxygen Delivery Method [2] Oxygen Delivery Method [3] Oxygen Flow Rate (L/min) Oxygen Flow Rate (L/min) [1 (Initial Baseline)] Oxygen Flow Rate (L/min) [2] Oxygen Flow Rate (L/min) [3] EtCo2 (Normal 35-45 , high quality CPR 10-20 & ROSC>/=40mmHg EtCo2 (Normal 35-45 , high quality CPR 10-20 & ROSC>/=40mmHg [1 (Initial Baseline)] EtCo2 (Normal 35-45 , high quality CPR 10-20 & ROSC>/=40mmHg [2] EtCo2 (Normal 35-45 , high quality CPR 10-20 & ROSC>/=40mmHg [3] 01/02/24 14:00 01/02/24 14:53 01/02/24 14:55 Temperature 102.7 F H 103.5 F H Temperature Source Core Pulse Rate 74 96 Pulse Rate [1 (Initial Baseline)] Pulse Rate [2] Pulse Rate [3] Respiratory Rate 26 H 29 H Respiratory Rate [1 (Initial Baseline)] Respiratory Rate [2] Respiratory Rate [3] Respiratory Effort Respiratory Pattern Blood Pressure 102/89 H 128/81 H Blood Pressure [1 (Initial Baseline)] Blood Pressure [2] Blood Pressure [3] Blood Pressure Mean 93 Pulse Ox 94 27 Oxygen Delivery Method Room Air Nasal Cannula Oxygen Delivery Method [1 (Initial Baseline)] Oxygen Delivery Method [2] Oxygen Delivery Method [3] Oxygen Flow Rate (L/min) 2 Oxygen Flow Rate (L/min) [1 (Initial Baseline)] Oxygen Flow Rate (L/min) [2] Oxygen Flow Rate (L/min) [3] EtCo2 (Normal 35-45 , high quality CPR 10-20 & ROSC>/=40mmHg 27 27 EtCo2 (Normal 35-45 , high quality CPR 10-20 & ROSC>/=40mmHg [1 (Initial Baseline)] EtCo2 (Normal 35-45 , high quality CPR 10-20 & ROSC>/=40mmHg [2] EtCo2 (Normal 35-45 , high quality CPR 10-20 & ROSC>/=40mmHg [3] 01/02/24 15:00 01/02/24 15:00 01/02/24 15:15 Temperature 103.1 F H Temperature Source Core Pulse Rate 80 Pulse Rate [1 (Initial Baseline)] 80 Pulse Rate [2] 83 Pulse Rate [3] 83 Respiratory Rate 12 Respiratory Rate [1 (Initial Baseline)] 20 H Respiratory Rate [2] 21 H Respiratory Rate [3] 20 H Respiratory Effort Respiratory Pattern Blood Pressure 104/36 L Blood Pressure [1 (Initial Baseline)] 110/54 L Blood Pressure [2] 104/36 L Blood Pressure [3] 125/69 H Blood Pressure Mean 58 Pulse Ox 97 Oxygen Delivery Method Nasal Cannula Nasal Cannula Oxygen Delivery Method [1 (Initial Baseline)] Nasal Cannula Oxygen Delivery Method [2] Nasal Cannula Oxygen Delivery Method [3] Nasal Cannula Oxygen Flow Rate (L/min) Oxygen Flow Rate (L/min) [1 (Initial Baseline)] 2 Oxygen Flow Rate (L/min) [2] 2 Oxygen Flow Rate (L/min) [3] 2 EtCo2 (Normal 35-45 , high quality CPR 10-20 & ROSC>/=40mmHg 20 EtCo2 (Normal 35-45 , high quality CPR 10-20 & ROSC>/=40mmHg [1 (Initial Baseline)] 22 EtCo2 (Normal 35-45 , high quality CPR 10-20 & ROSC>/=40mmHg [2] 25 EtCo2 (Normal 35-45 , high quality CPR 10-20 & ROSC>/=40mmHg [3] 24 01/02/24 15:20 01/02/24 15:25 01/02/24 15:29 Temperature 102.2 F H Temperature Source Pulse Rate 83 Pulse Rate [1 (Initial Baseline)] Pulse Rate [2] Pulse Rate [3] Respiratory Rate 28 H Respiratory Rate [1 (Initial Baseline)] Respiratory Rate [2] Respiratory Rate [3] Respiratory Effort Respiratory Pattern Blood Pressure 136/74 H Blood Pressure [1 (Initial Baseline)] Blood Pressure [2] Blood Pressure [3] Blood Pressure Mean 94 Pulse Ox 97 Oxygen Delivery Method Nasal Cannula Nasal Cannula Oxygen Delivery Method [1 (Initial Baseline)] Oxygen Delivery Method [2] Oxygen Delivery Method [3] Oxygen Flow Rate (L/min) 2 2 Oxygen Flow Rate (L/min) [1 (Initial Baseline)] Oxygen Flow Rate (L/min) [2] Oxygen Flow Rate (L/min) [3] EtCo2 (Normal 35-45 , high quality CPR 10-20 & ROSC>/=40mmHg 22 15 EtCo2 (Normal 35-45 , high quality CPR 10-20 & ROSC>/=40mmHg [1 (Initial Baseline)] EtCo2 (Normal 35-45 , high quality CPR 10-20 & ROSC>/=40mmHg [2] EtCo2 (Normal 35-45 , high quality CPR 10-20 & ROSC>/=40mmHg [3] Positive well developed Constitutional Narrative: Patient appears cachectic with temporal wasting. Her mouth is dry. Her tongue is stuck to the roof of her mouth. Patient occasionally moans. General Appearance ED: well developed; Negative for cyanotic or diaphoretic HEENT Reports dry mucous membranes HEENT Narrative: There is no evidence of head trauma. There is no clinical findings of basilar skull fracture. There is no septal deviation hematoma. Mouth ED: Yes dry mucous membranes Mouth: dry mucous membranes Eyes PERRL Eyes Narrative: There is no nystagmus. Patient blinks to visual threat right and left. General Eye ED: Negative for pale conjunctiva or scleral icterus Neck no lymphadenopathy, supple and no JVD Chest Wall inspection of chest normal and palpation of chest normal Resp normal respiratory effort Resp Narrative: Adventitial breath sounds possibly due to poor inspiratory effort. Cardio regular rate, regular rhythm, S1 normal heart sound, S2 normal heart sound and no murmurs GI GI Narrative: Abdomen is soft. Bowel sounds are diminished. There is no hepatosplenomegaly. No palp pulsatile mass or abdominal bruit. Back/Spine Back/Spine Narrative: Patient will occasionally moan when her back is touched. There is no evidence of obvious trauma. Extremity Extremity Narrative: Patient has evidence of peripheral cyanosis with delayed capillary refill. Her legs are mottled. She has what appears to be a first-degree pressure sore medial aspect of the left foot near the MTP joint of her great toe. There is also a purulent pustule noted. There is no lymphangitis. There is no popliteal lymphadenopathy. Neuro No oriented x3 Neuro Narrative: [place] Coma Scale: Eyes are open, 4. Best verbal is incomprehensible sound, 2 Best motor response moves to localize pain, 5 Total 11 Psych Negative for mental status grossly normal Skin No no rashes or lesions noted and No no wounds MDM MDM MDM Narrative Medical decision making narrative: Unable to obtain any history. She was mentating apparently on Monday when seen. Since her pupils are not pinpoint and she is breathing 14-16 times a minute in my opinion this is not an opiate overdose response. Talk screen was obtained as well as alcohol level. CBC to assess white count H&H and platelet count. Competence metabolic panel to assess liver enzymes, electrolytes, renal function. UA to assess for infection as well as determine if there are any evidence of proteinuria, hematuria callus that would signify renal disease. CT of the head because of a GCS of 11. Patient will require admission. Lunsford was ordered since I's and O's are important and she did receive fluids. Lab Data Attestation: I reviewed the patient's lab results. Lab results narrative: White count is normal with a slight shift. There is no bandemia. H&H is normal. Alcohol is nondetected. Blood sugar is 92. Coags are normal. Talk screen is positive for opiates. This is not surprising since she admitted on N 15 that she is on opiates. Lactate is elevated 2.6. With fever altered mental status and since in the differential meningitis is a consideration patient received 2 g of Rocephin. This will also cover respiratory and urologic pathogens. Urinalysis reveals specific gravity of 1.015, it is cloudy. Positive blood, nitrites and leukoesterase. There are 5-10 RBCs with 0-5 WBCs and 1+ bacteria. This is a good specimen. Labs: Laboratory Results - last 24 hr 01/02/24 01/02/24 01/02/24 13:20 13:38 13:40 WBC 9.5 RBC 4.25 Hgb 12.5 Hct 38.6 MCV 90.8 MCH 29.4 MCHC 32.4 RDW Std Deviation 47.0 H RDW Coeff of [place] 14.0 Plt Count 68 L MPV 10.6 Immature Gran % (Auto) 0.800 Neut % (Auto) 92.9 H Lymph % (Auto) 2.6 L [place] % (Auto) 1.3 Eos % (Auto) 1.9 Baso % (Auto) 0.5 Absolute Neuts (auto) 8.8 H Absolute Lymphs (auto) 0.25 L Nucleated RBC % 0 Differential Comment COMMENT Platelet Estimate MOD DEC ESR 46 H PT 14.0 INR 1.1 APTT 26.2 Sodium 134 L Potassium 2.8 L Chloride 97 L Carbon Dioxide 26.0 Anion Gap 10 BUN 29 H Creatinine 1.16 H Estim Creat Clear Calc 24.54 Est GFR (MDRD) Af Amer 57 L Est GFR (MDRD) Non-Af 47 L BUN/Creatinine Ratio 25.0 H Glucose 136 H Lactic Acid 2.6 H* Calcium 9.7 Total Bilirubin 1.50 H AST 26 ALT 20 Alkaline Phosphatase 115 C-React Prot Ext Range 320.00 H Total Protein 7.5 Albumin 2.0 L Globulin 5.5 H Albumin/Globulin Ratio 0.4 L Lipase 10 L Urine Color Yellow Urine Clarity Cloudy Urine pH 6.0 Ur Specific [place] 1.015 Urine Protein 100 H Urine Glucose (UA) Normal Urine Ketones 50 H Urine Occult Blood 250 H Urine Nitrite Positive H Urine Bilirubin Negative Urine Urobilinogen Normal Ur Leukocyte Esterase 100 H Urine RBC 5-10 SEEN Urine WBC 0-5 SEEN Ur Squamous Epith Cells 0 SEEN Amorphous Sediment 3+ URATE Urine Bacteria 1+ Hyaline Casts 0-5 SEEN Coarse Granular Casts 0-5 SEEN Urine Mucus 0 SEEN Urine Opiates Screen POSITIVE H Urine Methadone Screen NEGATIVE Ur Barbiturates Screen NEGATIVE Ur Phencyclidine Scrn NEGATIVE Ur Amphetamines Screen NEGATIVE MDMA (Ecstasy) Screen NEGATIVE U Benzodiazepines Scrn NEGATIVE Urine Cocaine Screen NEGATIVE U Cannabinoids Screen NEGATIVE Ur Drug Screen Comment Ethyl Alcohol < 3.0 POC Glucose 92 C-reactive protein is 320. ABG Data ABG results: ABG 01/02/24 14:49 Specimen Type ART Sample Site R Fem pH 7.57 H Bicarbonate Actual 24.7 Total CO2 26 Base Excess 3 H O2 Saturation 98 O2 % 21.0 ABG pCO2 26.8 L ABG pO2 79 O2 Delivery Device Not entered Vent Mode Not entered Radiography Chest X-Ray - ED: 1 View and Read by ED Physician (There is no evidence of CHF, infiltrate, pneumothorax or pleural effusion. Cardiac silhouette and size normal. There is a nodule noted on the right. Will need to measure size. The re is no widening the mediastinum. [place] structures are unremarkable.) Diagnostic Testing: Clinical Impression(s) from Imaging Studies Brain CT 01/02/24 13:32 IMPRESSION: Chronic involutional changes of the brain. Electronically Signed: Selvin Thompson MD at 14:10 EST , Chest X-Ray 01/02/24 14:32 IMPRESSION: Hyperinflation. Findings suggestive of a 2.2 cm x 1.5 cm nodule in the medial right upper lobe. Correlation with CT scan is recommended. Electronically Signed: Selvin Thompson MD at 14:54 EST , CT of the head was obtained without contrast. Axial views reviewed by me and revealed no acute abnormality. Awaiting formal read. The coronal and sagittal views were not available at the time I looked at the film. More importantly, there is no evidence of obvious intracranial bleed. EKG Initial EKG: Attestation: I personally reviewed and interpreted this EKG as follows: Interpretation: Sinus Rhythm (Rate 81. NC interval is 148 ms Rickers duration 78 ms. QT duration 3 and 42 ms. Patient has nonseptic ST-T wave changes which may represent ischemia.) Management Discussion w/another healthcare provider: Hospitalist (Dr. Dotson was informed the patient. She requested CT of the abdomen and pelvis. This was ordered. Agrees with admission to ICU. Because patient is mottled bruising with thrombocytopenia fibrinogen and D-dimer was obtained concerns concerned that she may develop DIC.) and Radiologist Treatment and Re-Evaluation :: Patient had a temp Lunsford placed and her temperature is 102.5. In light of this blood cultures were ordered as well as urine culture. Also ordered COVID, RSV and influenza. If there is no obvious source of infection with change in mental status she will need an LP unless there is a contraindication. Procedures Procedural Sedation 1 (Initial Baseline): Consent Signed: Yes (Consent was implied. Had nurse cosigned consent form since patient has a G) Any Problems With Anesthesia: No (Unknown) You/Your family experience fever (hyperthermia) w/anesthesia: Unknown Sedation medication: Ketamine Dose: 50 Total Moderate Sedation Units: 11 Maliampati Score: Class II ASA Classification: E and IV Comment:: After patient received 50 mg of ketamine. The L3-4 interspace was cannulated on first attempt. Opening pressure was 17 cm. Fluid was clear and colorless. Critical Care Time Critical Care Time: Yes Critical care time (excluding procedures): 30-74 minutes (42), Including time spent: (History, physical, documentation, review of prior records and lab results), Discussing w/Consultants, Arranging Admission or Transfer and Performing Direct Patient Care at Bedside Discharge Plan Dx/Rx/DC Orders Clinical Impression: Severe sepsis with acute organ dysfunction, Fever, Lactic acidosis, Thromboc ytopenia, Elevated serum creatinine, Hypothyroidism, Acute alteration in mental status, Bacteriuria, Abnormal EKG, Lung nodule, Mottled skin Disposition Disposition: Acute Care Hospital [facility] Capacity Capacity Assessment Tool Patient lacks Decision Making Capacity: unable to understand, reason and delibe rate health related choices: Yes Risk to self and or others?: Yes Risk of leaving the patient care unit and or hospital?: No
[2024-01-02 13:50] LABS: Differential Indicated SCAN CRITERIA MET
[2024-01-02] MEDS: 0.9% Normal Saline (1000mL) 1,000 ML 250 ML IV (13:54)
[2024-01-02 13:59] LABS: Alcohol, Blood (Medical)-Serum < 3.0 mg/dL
[2024-01-02 14:01] LABS: Bedside Glucose 92 mg/dL (74-106)
[2024-01-02 14:03] LABS: International Normalized Ratio 1.1; Partial Thromboplast Time 26.2 Seconds (24.1-36.2)
[2024-01-02 14:08] LABS: Amphetamine Urine VISTA NEGATIVE (<1000 ng/mL); Barbiturate Urine VISTA NEGATIVE (< 200 ng/mL); Benzodiazepine Urine VISTA NEGATIVE (< 200 ng/mL); Cocaine Urine VISTA NEGATIVE (< 300 ng/mL); Ecstacy Urine VISTA NEGATIVE (< 500 ng/mL); Methadone Urine VISTA NEGATIVE (< 300 ng/mL); PCP Urine VISTA NEGATIVE (< 25 ng/mL); THC Urine VISTA NEGATIVE (< 50 ng/mL); Vista UDS pH Range 5
[2024-01-02 14:09] LABS: Amorphous Sediment 3+ URATE; Red Blood Cells-Urine 5-10 SEEN /hpf (0-5); White Blood Cells 0-5 SEEN /hpf (0-5)
[2024-01-02 14:10] LABS: Hyaline Cast 0-5 SEEN /lpf (0-5)
[2024-01-02 14:11] LABS: Coarse Granular Cast 0-5 SEEN /lpf (0-5 /lpf)
[2024-01-02 14:11] LABS: ALB/GLOB Ratio 0.4 RATIO (0.9-2.4); AST(SGOT) 26 U/L (15-37); Alanine Aminotransfer ALT/SGPT 20 U/L (13-56); Alkaline Phosphatase 115 U/L (45-117); Anion Gap 10 (5-15); BUN 29 mg/dL (7-18); Calcium,Total 9.7 mg/dL (8.5-10.1); Chloride 97 mmol/L (98-107); Creatinine, Serum 1.16 mg/dL (0.55-1.02); EST Glomerular Filtration Rate 47 mL/min (>60); Est Glom Filt Rate - Afr Amer 57 mL/min (>60); Estimated Creatinine Clearance 24.54 ml/min; Globulin 5.5 g/dL (2.2-4.2); Glucose 136 mg/dL (74-106); Lipase 10 U/L (13-75); Potassium 2.8 mmol/L (3.5-5.1); Protein, Total 7.5 g/dL (6.4-8.2); Sodium Level 134 mmol/L (136-145)
[2024-01-02 14:12] LABS: Bacteria 1+ /hpf (None Seen); Lactic Acid 2.6 mmol/L (0.4-1.9)
[2024-01-02 14:21] LABS: Platelet Estimate MOD DEC (ADEQ)
[2024-01-02] MEDS: Ceftriaxone 2 GM in 0.9% Normal Saline (50mL MB+) 50 ML IV (14:21)
--- NOTE | 2024-01-02 14:32 | RAD_ITS ---
STUDY: X-RAY CHEST REASON FOR EXAM: Female, 88 years old. Bilateral rales TECHNIQUE: Single AP portable view of the chest. COMPARISON: Comparison is made with prior study November 28, 2023. FINDINGS: EKG electrodes are seen. Hyperinflation. Questionable 2.2 cm x 1.5 cm nodule in the medial right upper lobe. There is no demonstrated pleural abnormality. There is borderline cardiomegaly. Normal mediastinum and kenna. Normal visualized pulmonary arteries. Normal visualized aortic arch and descending thoracic aorta. There are degenerative changes of the visualized thoracic spine. There is degenerative osteoarthritis of the bilateral shoulders. There is no demonstrated abnormality of the visualized soft tissue structures of the upper abdomen. RAD/Chest 1 View (Portable) IMPRESSION: Hyperinflation. Findings suggestive of a 2.2 cm x 1.5 cm nodule in the medial right upper lobe. Correlation with CT scan is recommended. Electronically Signed: Selvin Thompson MD at 14:54 EST ,
[2024-01-02 14:52] LABS: Base Excess 3 mmol/L (-2 to +2); Bicarbonate 24.7 mmol/L (22-26); Blood Gas Specimen Type ART; Mode Not entered; O2 Delivery Device Not entered; PO2 79 mmHG (75-100); SITE R Fem; SO2 98 % (95-99); Total Carbon Dioxide 26 mmol/L; pCO2 26.8 mmHg (35-45); pH 7.57 (7.35-7.45)
[2024-01-02] MEDS: Ketamine HCl 500 MG/5 ML Vial 50 MG IV (15:00)
--- NOTE | 2024-01-02 15:11 | HP.PCM.HOS_ITS ---
HPI - General General Date of Admission: 01/02/24 Date of Service: 01/02/24 Chief Complaint: Unresponsiveness HPI Narrative GIANNI ORDOÑEZ, is a 88 F who presented to the emergency department at [facility] on 01/02/2020 for after being found unresponsive by her apartment maintenance technician. It sounds as if the patient lives alone at baseline. She evidently took her oxycodone which is prescribed by pain management at night before. Patient was not able to give any history however we do know she was seen here for diarrhea on the and lumbar radiculopathy on the but discharged home both times. She has not had any bowel movement since being in the emergency department. Vital signs on presentation showed a temperature of 97.8, heart rate 79, blood pressure 136/78, respiratory rate 14 oxygen saturation was 95% on room air. She did spike a temperature 1 in the emergency department and had a Tmax of 103.1. Respiratory rates have fluctuated and she was placed on 2 L nasal cannula but no obvious desaturation was noted. CBC showed a normal white count with a normal hemoglobin but a new thrombocytopenia with a platelet count of 68,000 (baseline just last month for 312,000), she does have a severe left shift with a 92.9% neutrophilia. Coags were unremarkable. Chemistry panel shows mild hyponatremia with a sodium of 134, potassium of 2.8, chloride of 97, bicarb was 26 with a normal anion gap. Serum creatinine and BUN were 29 and 1.16 respectively which are slightly above her baseline but did not meet criteria for GLORIA. Serum glucose was 136, lactate is 2.6 and total bilirubin was 1.50 which is elevated from her baseline. LFTs were otherwise unremarkable. Lipase was normal. Given her severe fever and presentation we got an ESR and a CRP which were 46 and 320 respectively. Her UA is suggestive of infection with nitrites, leuk esterase, and 1+ bacteria however she only had 0-5 leuks. Toxicology screen was only positive for opiates. An ABG was obtained given her mental status and her pH was 7.57 with a pCO2 26.8 and a pO2 of 79 on room air. Lactic acid was elevated at 2.6. Given her altered mental status on presentation an LP was requested to be performed and the emergency department and a glucose of 41 and a protein of 184 were noted. Which are potentially suggestive of bacterial meningitis. CT of the brain showed only chronic volitional changes. Chest x-ray showed hyperinflation with a nodule that was 2.2 cm x 1.5 cm in the medial right upper lobe with no previous chest imaging available. CT then pelvis is pending. EKG had no acute findings. Patient was given vancomycin and ceftriaxone 2 g in emergency department given concern for meningitis. She does meet sepsis criteria and will therefore be admitted to the ICU. She has 2 sons listed as contacts. They were both called by the emergency department with no response as of yet. [facility] Medical History Impaired mobility and ADLs Difficulty in walking Anxiety Depression Non-smoker Pituitary abnormality Migraines Peptic ulcer disease Hypothyroidism Hypertension Chronic pain Home Medications ?Medication ?Instructions ?Recorded ?Last Taken ?Type oxybutynin chloride 5 mg 5 mg PO DAILY 11/14/23 11/28/23 History tablet,extended release 24 hr oxycodone-acetaminophen 5 mg-325 1 tab PO BID PRN pain 11/14/23 11/14/23 History mg tablet levothyroxine 75 mcg tablet 75 mcg PO DAILY 11/28/23 Unknown History meloxicam 15 mg tablet 15 mg PO DAILY 11/28/23 11/28/23 History omeprazole 10 mg capsule,delayed 10 mg PO DAILY 11/28/23 11/28/23 History release sennosides 8.6 mg-docusate sodium 2 tab PO BID PRN constipation 11/28/23 11/27/23 History 50 mg tablet (Stimulant Laxative Plus) aspirin 81 mg chewable tablet 81 mg PO BREAKFAST 90 days #90 tabs 11/29/23 Unknown Rx pantoprazole 20 mg tablet,delayed 20 mg PO DAILY 12/30/23 Unknown History release prednisone 10 mg tablet 30 mg PO DAILY 12/30/23 Unknown History Allergy/AdvReac Type Severity Reaction Status Date / Time No Known Allergies Allergy Verified 01/02/24 13:19 Family History Mother Lymphoma Father Liver cancer Surgical History H/O spinal fusion History of parathyroid surgery History of appendectomy Social History household members: none Smoking Status: Never smoker alcohol intake: never substance use type: does not use ROS Review of Systems ROS Unobtainable: due to mental status Vital Signs Vital Signs Vital Signs: 01/02/24 13:13 01/02/24 13:19 01/02/24 13:53 Temperature 97.8 F 102.1 F H Temperature Source Temporal Core Pulse Rate 79 81 Respiratory Rate 14 18 Respiratory Effort Normal Non-Labored Respiratory Pattern Normal Blood Pressure 136/78 H 121/84 H Blood Pressure Mean 97 96 Pulse Ox 95 96 Oxygen Delivery Method Room Air Room Air Oxygen Flow Rate (L/min) EtCo2 (Normal 35-45 , high quality CPR 10-20 & ROSC>/=40mmHg 01/02/24 14:00 01/02/24 14:53 01/02/24 15:00 Temperature 102.7 F H 103.1 F H Temperature Source Core Core Pulse Rate 74 80 Respiratory Rate 26 H 12 Respiratory Effort Respiratory Pattern Blood Pressure 102/89 H 104/36 L Blood Pressure Mean 93 58 Pulse Ox 94 97 Oxygen Delivery Method Room Air Nasal Cannula Oxygen Flow Rate (L/min) EtCo2 (Normal 35-45 , high quality CPR 10-20 & ROSC>/=40mmHg 27 01/02/24 15:01 Temperature 103.5 F H Temperature Source Pulse Rate 96 Respiratory Rate 29 H Respiratory Effort Respiratory Pattern Blood Pressure 128/81 H Blood Pressure Mean Pulse Ox 27 Oxygen Delivery Method Nasal Cannula Oxygen Flow Rate (L/min) 2 EtCo2 (Normal 35-45 , high quality CPR 10-20 & ROSC>/=40mmHg 27 Weight Weight: 49 kg Body Mass Index (BMI) 23.3 Physical Exam Const no apparent distress and average body habitus; Negative for alert, oriented x3, healthy appearing or well nourished Constitutional Narrative: Obtunded, elderly, white female, lying in bed, obtunded however she did receive ketamine for LP, nursing reports that she is intermittently agitated Orientation / Consciousness: lethargic HEENT normocephalic and head/scalp atraumatic; Negative for moist oral mucous membranes HEENT Narrative: Mucous membranes appear markedly dry, dentition is fair for age, patient appears to have temporal wasting bilaterally, head is pretty persistently turned to the left Eyes PERRL and conjunctivae normal Eyes Narrative: Eyes fairly consistently deviated to the left during exam however patient not able to follow commands, no scleral icterus Neck no lymphadenopathy and supple Neck Narrative: Trachea midline, no thyroid enlargement Resp normal respiratory effort, no retractions, no use of accessory muscles and clear to auscultation bilaterally Auscultation: Negative for rales, rhonchi or wheezes Cardio regular rate, regular rhythm, S1 normal heart sound, S2 normal heart sound, no rub, no gallops and no clicks; Negative for no murmurs Cardio Narrative: 3 out of 6 systolic murmur loudest at left lower sternal border GI normal to inspection, nondistended, normoactive bowel sounds, soft to palpation and non-tender GI Narrative: Abdomen is scaphoid Extremity no clubbing, cyanosis or edema Extremity Narrative: Pedal and radial pulses are 2+ bilaterally Skin Skin Narrative: Left great toe with small circular area that appears to have purulent drainage underneath however area was not lanced and pressure injury noted at the hallux medially Neuro No oriented x3 Neuro Narrative: Patient moves extremities spontaneously to sternal rub but no purposeful interaction, not able to follow commands, patient remains flexed throughout the entire exam, patient nonverbal at this time Psych Psych Narrative: Unable to assess Results Lab / Micro Data 01/02/24 13:20 01/02/24 13:20 Labs: Laboratory Results - last 24 hr 01/02/24 13:20: WBC 9.5, RBC 4.25, Hgb 12.5, Hct 38.6, MCV 90.8, MCH 29.4, MCHC 32.4, RDW Std Deviation 47.0 H, RDW Coeff of Sagar 14.0, Plt Count 68 L, MPV 10.6, Immature Gran % (Auto) 0.800, Neut % (Auto) 92.9 H, Lymph % (Auto) 2.6 L, Hardeman % (Auto) 1.3, Eos % (Auto) 1.9, Baso % (Auto) 0.5, Absolute Neuts (auto) 8.8 H, A bsolute Lymphs (auto) 0.25 L, Nucleated RBC % 0, Differential Comment COMMENT, Platelet Estimate MOD DEC, PT 14.0, INR 1.1, APTT 26.2, Sodium 134 L, Potassium 2.8 L, Chloride 97 L, Carbon Dioxide 26.0, Anion Gap 10, BUN 29 H, Creatinine 1.16 H, Estim Creat Clear Calc 24.54, Est GFR (MDRD) Af Amer 57 L, Est GFR (MDRD) Non-Af 47 L, BUN/Creatinine Ratio 25.0 H, Glucose 136 H, Calcium 9.7, T otal Bilirubin 1.50 H, AST 26, ALT 20, Alkaline Phosphatase 115, Total Protein 7.5, Albumin 2.0 L, Globulin 5.5 H, Albumin/Globulin Ratio 0.4 L, Lipase 10 L 01/02/24 13:38: POC Glucose 92 01/02/24 13:40: Lactic Acid 2.6 H*, Urine Color Yellow, Urine Clarity Cloudy, Urine pH 6.0, Ur Specific [place] 1.015, Urine Protein 100 H, Urine Glucose (UA) Normal, Urine Ketones 50 H, Urine Occult Blood 250 H, Urine Nitrite Positive H, Urine Bilirubin Negative, Urine Urobilinogen Normal, Ur Leukocyte Esterase 100 H , Urine RBC 5-10 SEEN, Urine WBC 0-5 SEEN, Ur Squamous Epith Cells 0 SEEN, Amorphous Sediment 3+ URATE, Urine Bacteria 1+, Hyaline Casts 0-5 SEEN, Coarse Granular Casts 0-5 SEEN, Urine Mucus 0 SEEN, Urine Opiates Screen POSITIVE H, Urine Methadone Screen NEGATIVE, Ur Barbiturates Screen NEGATIVE, Ur Phencyclidine Scrn NEGATIVE, Ur Amphetamines Screen NEGATIVE, MDMA (Ecstasy) Screen NEGATIVE, U Benzodiazepines Scrn NEGATIVE, Urine Cocaine Screen NEGATIVE, U Cannabinoids Screen NEGATIVE, Ur Drug Screen Comment , Ethyl Alcohol < 3.0 Micro: Microbiology 01/02/24 14:00 Mucosa - Nose SARS-CoV-2, Influenza & RSV (PCR) - Final ABG Data ABG results: ABG 01/02/24 14:49 Specimen Type ART Sample Site R Fem pH 7.57 H Bicarbonate Actual 24.7 Total CO2 26 Base Excess 3 H O2 Saturation 98 O2 % 21.0 ABG pCO2 26.8 L ABG pO2 79 O2 Delivery Device Not entered Vent Mode Not entered Imaging Radiology Impression Brain CT 01/02/24 13:32 IMPRESSION: Chronic involutional changes of the brain. Electronically Signed: Selvin Thompson MD at 14:10 EST , Chest X-Ray 01/02/24 14:32 IMPRESSION: Hyperinflation. Findings suggestive of a 2.2 cm x 1.5 cm nodule in the medial right upper lobe. Correlation with CT scan is recommended. Electronically Signed: Selvin Thompson MD at 14:54 EST , Assessment & Plan Assessment/Plan (1) Fever: (2) Sepsis: (3) Lactic acidosis: (4) Thrombocytopenia: (5) Hypokalemia: (6) Elevated serum creatinine: (7) Hyperbilirubinemia: (8) Abnormal urinalysis: PLAN: Plan Sepsis-source unknown -Patient meets sepsis criteria with thrombocytopenia which is new, altered mental status, lactic acidosis she is also markedly febrile -Chest x-ray unremarkable -UA does look infected and urine cultures pending -CSF is suggestive infection with low glucose and elevated protein -The rest the labs are pending at this time along with culture -Check MRI of brain with and without contrast -Patient presented with back pain a few days ago so we will check MRI of lumbar spine -CRP is markedly elevated at 320 -Procalcitonin is pending -Blood cultures are pending -Will treat with Zosyn, ceftriaxone 2 g twice daily, and vancomycin given concern for meningitis and narrow antibiotics as able -Patient has been treated with 30 cc/kg body weight of IV fluids -Will give Solu-Cortef 50 IV twice daily for now as patient is on chronic prednisone at home -Reason for this is unclear -Consult infectious disease -Consult critical care/pulmonary medicine Toxic/metabolic encephalopathy -Suspect secondary to the above -Check MRI -CT was unremarkable -ABG shows respiratory alkalosis -Ammonia level pending -Check TSH -Toxicology is positive for opiates however patient is on chronic opiate therapy for her chronic low back pain -N.p.o. for now Acute thrombocytopenia -Suspect related to the above -Fibrinogen and D-dimer are pending -Coags are normal -SCDs only for DVT prophylaxis since platelet count is less than 75,000 -At baseline platelet count is normal and most recently is 312,000 Abnormal UA -Culture pending as above -Antibiotics as above Hypokalemia -IV potassium replacement -Check magnesium and phosphorus -Repeat lab in a.m. Hyperbilirubinemia -Acute -Likely related the above -Will repeat in a.m. Lactic acidosis -Secondary to the above -Will cycle per sepsis protocol Debility/generalized weakness-acute on chronic -Consult PT/OT/speech therapy -Consult case management/social service director for assistance with discharge planning once patient is medically stable Elevated serum creatinine -Does not meet criteria at this time for GLORIA -Volume resuscitation as above -Will continue IV fluids at 75 cc/h following fluid resuscitation for sepsis due to the fact patient will be n.p.o. -Repeat lab in a.m. GERD/PUD -Hold home oral omeprazole -Protonix 40 mg IV daily Hypothyroidism -check TSH -Hold levothyroxine for now since patient n.p.o. Overactive bladder -Hold home oxybutynin History of TIA -Hold home aspirin Chronic low back pain -Hold home's scheduled opiates -As needed low-dose Dilaudid available every 6 hours if required -It does appear that she takes them on a regular basis and I will continue this to avoid withdrawal Chronic prednisone use -Unclear why -Will give stress dose steroids for now since patient is ill with Solu-Cortef 50 twice daily will give Solu-Cortef 50 twice daily for now as patient is on chronic prednisone at home per documentation DVT prophylaxis -Contraindication to chemoprophylaxis due to thrombocytopenia until platelet count is greater than 75,000 -SCDs bilaterally CODE STATUS -Previously documented CODE STATUS is DNR CCA with no intubation -ER has called both contacts with no response at this time -Will continue DNR CCA with no intubation as this has been previously documented twice in our system Critical care time greater than 36 minutes without procedures Sepsis Attestation Sepsis Alert: Yes Sepsis Attestation: Agree w/Sepsis Date exam was performed: 01/02/24 Time exam was performed: 16:21 Possible Source of Sepsis: Other (Unclear at this time) Sepsis Organ Dysfunction Criteria Present: Platelets <100,000 / uL, Lactic Acid > 2 mmol/L and New/Unexplained change in mental status Fluid Resuscitation Fluid resuscitation indicated?: Yes Fluid Resuscitation ordered: 30 ml/kg fluid bolus ordered Amount of fluid ordered: 1,500 Charges/Coding Procedures Hospitalists Procedures: 74489 Critical Care 1st Hr
--- NOTE | 2024-01-02 15:14 | ED.RN ---
Attempted to call pts son Charlie. No answer, but left a message.
[2024-01-02] MEDS: Acetaminophen 650 MG Suppository RC (15:19)
--- NOTE | 2024-01-02 15:19 | CT_ITS ---
EXAM: CT ABDOMEN AND PELVIS WITH INTRAVENOUS CONTRAST CLINICAL INDICATION: Severe sepsis unknown source TECHNIQUE: Helically acquired images were obtained of the abdomen and pelvis with intravenous contrast. This CT exam was performed using one or more of the following dose reduction techniques: automated exposure control, adjustment of the mA and/or kV according to patient size, and/or use of iterative reconstruction technique. CONTRAST: 100ML ISOVUE 300 RADIATION DOSE: CTDIvol = 13.81 mGy, DLP = 489.15 mGy-cm COMPARISON: 11/28/2023 FINDINGS: LIMITATIONS: Exam is limited by improper positioning of patient''s arms resulting in significant streak artifact. LOWER THORAX: Atelectasis or infiltrate in the posterior left lung base. No cardiomegaly. No significant pericardial effusion. ABDOMEN: LIVER: Unremarkable. Homogeneous. No focal mass. GALLBLADDER AND BILE DUCTS: Unremarkable. No calcified gallstones. No gallbladder distention or wall edema. No intra- or extrahepatic biliary ductal dilation. PANCREAS: Diffuse atrophy.. No focal cystic or solid mass. SPLEEN: Unremarkable. Normal size without focal cystic or solid mass. ADRENALS: Unremarkable. No nodules. KIDNEYS AND URETERS: Unremarkable. Normal renal size and position. No hydronephrosis. STOMACH AND BOWEL: Evaluation of the GI tract is limited by absence of oral contrast. Cannot exclude stomach wall thickening. No dilated loops of bowel or evidence for obstruction. Cannot exclude segmental thickening of the diaz of the small or large bowel. Cannot exclude enteritis or colitis. Marked diffuse fecal retention. Appendix within normal limits. PELVIS: APPENDIX: No evidence of acute appendicitis. BLADDER: Lunsford catheter seen in the bladder. REPRODUCTIVE: Unremarkable as visualized. No mass. ABDOMEN and PELVIS: INTRAPERITONEAL SPACE: Unremarkable. No ascites or other fluid collection. No free air. BONES/JOINTS: Degenerative changes throughout the lumbar spine. Mild levoconvex scoliosis. Stable surgical changes with posterior fixation at L3-L4. No suspicious lytic or blastic abnormality. SOFT TISSUES: Since prior exam patient has developed an abnormal appearance of the right psoas muscle at the level of the right kidney where there is heterogeneity, some increased fluid density, and a few small foci of air, along with thickening when compared to the left. The findings suggest a psoas abscess. No discrete abdominal or pelvic wall hernia. VASCULATURE: Tortuous calcified aorta with no aneurysm. LYMPH NODES: Unremarkable. No enlarged lymph nodes. CT/Abdomen/Pelvis W IV Cont ONLY IMPRESSION: 1. 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 2. Marked diffuse fecal retention. 3. Mild atelectasis or infiltrate in the left lung base since previous study. Electronically Signed: Naldo Turk MD at 16:47 EST ,
[2024-01-02 15:22] LABS: Erythrocyte Sedimentation Rate 46 mm/hr (0-30)
[2024-01-02 15:52] LABS: Glucose Spinal Fluid 41 mg/dL (40-75)
[2024-01-02] MEDS: VANCOMYCIN 750 MG/150 ML 150 MG IV (15:58)
[2024-01-02 16:11] LABS: White Count, CSF 28 /mm-3 (0 - 5)
[2024-01-02 16:13] LABS: RBC Count, Spinal Fluid 11 /mm-3 (None seen)
[2024-01-02 16:14] LABS: Auto B Fluid Analyzer BKGD Ct COUNTS W/IN LIMITS (W/IN LIMITS)
[2024-01-02 16:15] LABS: Appearance CSF (character) CLEAR (Clear); CSF Color COLORLESS (Colorless); Tested Tube # 1
[2024-01-02 17:17] LABS: Procalcitonin 3.37 ng/mL (0.00-0.09)
[2024-01-02] MEDS: Piperacil/Tazobactam 3.375 GM in 0.9% Normal Saline (50mL MB+) 50 ML IV (17:17)
--- NOTE | 2024-01-02 17:19 | PCM.HOSP.N ---
Hospitalist Note Son arrived and further discussion with regards to the findings on CAT scan which consisted of iliopsoas abscess. I highly suspect she has an epidural abscess which is likely causing meningitis type picture on her CSF. Her son reports she would not want any of this and would like hospice care. Hospice will be consult emergency department and if they cannot take her to inpatient hospice this evening we will admit here with consultation to hospice for tomorrow. Awaiting information from charge nurse in the emergency department.
[2024-01-02 17:40] LABS: Fibrinogen 712 mg/dl (203-444)
[2024-01-02 17:43] LABS: Reflex Lactate? Y
[2024-01-02 17:45] LABS: Magnesium 2.2 mg/dL (1.6-2.6); Phosphorus 2.3 mg/dL (2.5-4.9); Thyroid Stim Hormone (TSH) 0.368 uIU/mL (0.358-3.740)
[2024-01-02 17:46] LABS: Ammonia < 11.0 umol/L (11-32)
[2024-01-02 18:21] LABS: Body Fluid QC Type(s) BF2Q
[2024-01-02 18:25] LABS: Lymphocytes,CSF 7 % (40 - 80); Monocytes,CSF 6 % (15 - 45); Neutrophils,CSF 88 % (0 - 6)
--- NOTE | 2024-01-02 18:33 | ED.RN ---
Hospice will be here around 1pm to assess pt for the IPU. There is not a nurse solar energy consultant and designer for tonight.
--- NOTE | 2024-01-02 18:37 | ED.RN ---
No repeat lactic per Dr Tellez
[2024-01-02] MEDS: Morphine 2 MG/ML Syringe IV (18:58)
[2024-01-02] MEDS: LORazepam 2 MG/ML Syringe 0.5 MG IV (18:59)
--- NOTE | 2024-01-02 19:26 | CM.ED ---
Social work Reason for referral: unresponsive Referral source: social work identification This SW and CAMI Snyder identified need to see patient based on patient being unresponsive, along with patient's multiple recent ED trips over the last two months. CAMI Snyder saw patient on 11/14/23 for a full assessment. Patient's son, Charlie, lives in [place]. Nursing and this SW both attempted to call Charlie and left voicemails (nursing at 1514; this SW at 1530). Charlie arrived to the hospital and welcomed this SW and CAMI Snyder into patient's room. Patient remained mostly unresponsive throughout conversation, with no meaningful conversation produced by the patient. Charlie expressed having a plan to have patient move into [facility] in [place] this weekend. During conversation, Charlie spontaneously reported being a realist and understanding that doctors reported patient having a 20% of succumbing to her illness. Charlie reported patient having a DNR and not desiring to have anything heroic done if needed. Charlie expressed having called his brother who lives in [place] to express patient's situation. Charlie stated that his brother was hard to gauge on the phone and Charlie stated he would not be surprised if his brother did not come see patient. Charlie reported being surprised to be here today in the ED even though patient had been here often over the last two months. Charlie stated patient had a stroke during her last stay here 11/28/2023, but no MRI was completed due to not knowing if the clip at the base of her brain was MRI compliant. Charlie reported the clip was placed 6-7 years ago. At social work request, Charlie retrieved patient's advanced directives from his car and copies were made for chart. Patient's advanced directives name her son, Charlie. Upon return to patient's room to gather the advance directives, learned that Dr. Dotson (hospitalist) came to the ED to assess patient for admission to acute. Dr. Dotson identified an abscess on patient's spinal cord that was causing significant issues and required patient to be transferred for treatment. Charlie stated patient would not want this treatment due to her DNR, which prompted Dr. Dotson to discuss that one of patient's only options then would be Hospice. Charlie was in agreement with this plan. Referral to [facility] called by nursing staff. [facility] called supervisor propellant charge loadingElsa, reporting there was no nurse available due to staffing until 1300 tomorrow (01/03/24). Due to no availability for hospice admission to the IPU this evening, patient admitted to acute until hospice assessment tomorrow. Charlie expressed his desire to stay with patient overnight, if possible. CAMI Snyder updated supervisor propellant charge loading, Elsa, with Charlie's request given the circumstances. Much supportive listening and reflections offered to Charlie. Plan: admission to acute; SW to follow as needed. [facility] assessment 01/03/24 at 1300. Kaylan Murrieta, [employer], GLUING MACHINE OFFBEARER
[2024-01-02] MEDS: 0.9% Normal Saline (1000mL) 1,000 ML 999 ML IV (20:10)
[2024-01-02] MEDS: Ondansetron 4 MG/2 ML Vial IV (21:24)
[2024-01-02] MEDS: Ketorolac 15 MG/ML Vial IV (21:24)
[2024-01-02] MEDS: 0.9% Saline Lock 10 ML Syringe IV ×2 (21:25→21:41)
[2024-01-02] MEDS: HYDROmorphone 0.5 MG/0.5 ML SYRINGE IV (21:41)
[2024-01-03] MEDS: HYDROmorphone 0.5 MG/0.5 ML SYRINGE IV ×4 (02:11→14:04)
[2024-01-03] MEDS: 0.9% Saline Lock 10 ML Syringe IV ×4 (02:11→14:04)
[2024-01-03 02:17] VITALS: BP 109/71; PULSE 60; RESP 16; TEMP 36.2; O2SAT 97
[2024-01-03] MEDS: Ondansetron 4 MG/2 ML Vial IV (06:44)
[2024-01-03] MEDS: Ketorolac 15 MG/ML Vial IV (06:44)
[2024-01-03 06:50] VITALS: O2SAT 93
[2024-01-03 08:19] VITALS: BP 96/58; PULSE 68; RESP 18; TEMP 36.4; O2SAT 94
--- NOTE | 2024-01-03 13:26 | CASEMGMT ---
Social Work- SW collaborated with hospice nurse who reports that pt will d/c IPU; transportation pending. SW advised physician and requested d/c. SW remains available to follow. AMELIA Tesfaye
--- NOTE | 2024-01-03 14:03 | DS.PCM_ITS ---
Providers Date of Admission: 01/02/24 Date of Discharge: 01/03/24 Primary Care Physician: LUANNE Hartmann Consultations 01/02/24 19:50 Consult: Infectious Disease Routine Consulting Provider: Zana Baker Reason for Consult: Sepsis EMERGENT Consult: No Notified: No Date Notified: 01/02/24 Time Notified: 16:31 Consult: Catalogue And Special Products Manager / Pulmonary Medicine Routine Consulting Provider: Intensivists/Pulmonary Med Reason for Consult: sepsis EMERGENT Consult: No Notified: No Date Notified: 01/02/24 Time Notified: 16:25 Reason For Visit: SEPSIS FROM UNKNOWN SOURCE/UNRESPONSIVENESS Diagnosis Discharge Diagnosis (1) Fever: Status: Acute Code(s): R50.9 - Fever, unspecified (2) Sepsis: Status: Acute Code(s): A41.9 - Sepsis, unspecified organism (3) Lactic acidosis: Status: Acute Code(s): E87.20 - Acidosis, unspecified (4) Thrombocytopenia: Status: Acute Code(s): D69.6 - Thrombocytopenia, unspecified (5) Hypokalemia: Status: Acute Code(s): E87.6 - Hypokalemia (6) Elevated serum creatinine: Status: Acute Code(s): R79.89 - Other specified abnormal findings of blood chemistry (7) Hyperbilirubinemia: Status: Acute Code(s): E80.6 - Other disorders of bilirubin metabolism (8) Abnormal urinalysis: Status: Acute Code(s): R82.90 - Unspecified abnormal findings in urine Plan This 88-year-old nice lady was recently evaluated in ED for acute exacerbation of chronic low back pain was admitted with unresponsive episode, found by housekeeping. Patient has chronic lumbar radicular pain. She took oxycodone for pain relief night prior. She had high-grade fever. Denies abdominal pain but not had bowel movement since December 29. As per H&P, admitting diagnosis was made suspected sepsis with unknown source but patient was admitted on MedSurg floor because the patient and POA, family wanted hospice care. 1. Suspected sepsis possible due to right-sided psoas abscess: Patient had CT abdomen pelvis with IV contrast which showed abnormal appearance of right psoas muscle with heterogeneity, increased fluid density and small foci of air along with thickening compared to left suggestive of right psoas abscess since prior exam. The patient presented with sepsis with clinical indicators of high-grade fever, 103.5 Fahrenheit, tachypnea due to right-sided psoas abscess might be from possible epidural abscess with acute sepsis-related organ dysfunction as evidenced by lactic acidosis, thrombocytopenia, altered mental status and CSF findings suggestive of meningitis and CT abdomen findings as mentioned above. CRP 320. Severe thrombocytopenia 68,000. D-dimer 7.8. Patient was empirically started on Zosyn, ceftriaxone and vancomycin but patient chose for hospice care. Patient was also given Solu-Cortef 50 mg IV twice daily as patient on chronic prednisone therapy at home. 2. Altered mental status possible due to toxic metabolic encephalopathy and meningitis from lumbar/epidural abscess: CSF finding shows WBC 28, RBC 11, neutrophil 88%, lymphocytes 7% monocytes 6%. Total protein 184. Glucose 40. Gram stain of CSF shows no organisms plus 2+ WBC. Possible bacterial or viral. ABG was suggestive of respiratory alkalosis with pH 7.57, 26.8/79. Lactic acidosis 3. Hypokalemia and hypophosphatemia: Potassium and phosphate replacement ordered ordered 4. Other acute features include increase in creatinine but does not meet criteria for GLORIA, increased bilirubin 1.5. 5. Multiple other chronic comorbidities which include debility generalized weakness, GERD, overactive bladder, hypothyroidism, chronic low back pain: Which adds to the complexity of the patient comorbidity patient fatigue and frustration therefore selected for hospice care. 6. DVT prophylaxis: Pharmacological contraindicated due to severe thrombocytopenia. Bilateral SCDs Patient is being discharged to inpatient hospice unit. Discharge process discussed with the patient and all questions were answered to patient, son and grandson. Follow with PCP in 1 to 2 weeks Total time spent, exact 35 minutes on discharge meds reconciliation, examination, coordination of care with nurses and ancillary staff, review of imaging and blood test and discussion with the patient on follow-up instructions. Medications at Discharge Home Medications oxybutynin chloride 5 mg tablet,extended release 24 hr 5 mg PO DAILY 11/14/23 oxycodone-acetaminophen 5 mg-325 mg tablet 1 tab PO BID PRN pain 11/14/23 levothyroxine 75 mcg tablet 75 mcg PO DAILY 11/28/23 meloxicam 15 mg tablet 15 mg PO DAILY 11/28/23 omeprazole 10 mg capsule,delayed release 10 mg PO DAILY 11/28/23 sennosides 8.6 mg-docusate sodium 50 mg tablet (Stimulant Laxative Plus) 2 tab PO BID PRN constipation 11/28/23 aspirin 81 mg chewable tablet 81 mg PO BREAKFAST 90 days #90 tabs 11/29/23 pantoprazole 20 mg tablet,delayed release 20 mg PO DAILY 12/30/23 prednisone 10 mg tablet 30 mg PO DAILY 12/30/23 Physical Exam Narrative Seen and examined. I talked to patient's son and grandson near the bedside. History taken from patient and her son. Patient is frustrated that she has been sick for a long time, not doing well with fatigue. Admitted with a fever 103.5 Fahrenheit suggestive of sepsis but [facility] Patient denies any particular focus of infection including URI, pneumonia like symptoms, abdominal pain/distention or UTI-like symptoms. She is also not walked for a long time. Physical exam General: Alert, Oriented x3, Cooperative but fatigued and tired HEENT: Atraumatic, PERRLA, EOMI, Normocephalic Oral: Oral mucosa dry. No Gingival or Mucosal Lesions/ Ulcerations Neck: Supple, No JVD, Negative Carotid Bruits Chest wall/Lungs: Air entry diminished in bilateral lung bases. No crepitation/rhonchi Cardiovascular: Regular rate, Regular Rhythm, Normal S1, Normal S2, No M/G/R Abdomen: Bowel Sounds Present, Soft, Non Tender, Non-Distended : No dysuria. No renal angle tenderness. No suprapubic tenderness. Extremities: No edema, Capillary Refill Less than 3 Seconds Skin: No rashes, No breakdown Musculoskeletal: No Tenderness to Palpation of Joints or Extremities. Muscle strength 4/5 at knees and hip joints. Neurological: Cranial nerves II-XII grossly intact, DTR 2+/4. No acute focal neurological deficit. Psych/Mental Status: Mildly depressed. Weight / BMI Weight Weight: 95 lb 10.89 oz Body Mass Index (BMI) 18.6 ABG / Lab / Microbiology Data 01/02/24 13:20 01/02/24 13:20 Laboratory: Laboratory Results - last 24 hr 01/02/24 13:20: Differential Comment COMMENT, Platelet Estimate MOD DEC, ESR 46 H, PT 14.0, INR 1.1, APTT 26.2, Fibrinogen 712 H, D-Dimer Quant (PE/DVT) 7.80 H* , Sodium 134 L, Potassium 2.8 L, Chloride 97 L, Carbon Dioxide 26.0, Anion Gap 10, BUN 29 H, Creatinine 1.16 H, Estim Creat Clear Calc 24.54, Est GFR (MDRD) Af Amer 57 L, Est GFR (MDRD) Non-Af 47 L, BUN/Creatinine Ratio 25.0 H, Glucose 136 H, Calcium 9.7, Phosphorus 2.3 L, Magnesium 2.2, Total Bilirubin 1.50 H, AST 26, ALT 20, Alkaline Phosphatase 115, C-React Prot Ext Range 320.00 H, Total Protein 7.5, Albumin 2.0 L, Globulin 5.5 H, Albumin/Globulin Ratio 0.4 L, Lipase 10 L, TSH 0.368 01/02/24 13:40: Lactic Acid 2.6 H*, Procalcitonin 3.37 H, Urine Color Yellow, Urine Clarity Cloudy, Urine pH 6.0, Ur Specific [place] 1.015, Urine Protein 100 H, Urine Glucose (UA) Normal, Urine Ketones 50 H, Urine Occult Blood 250 H, U rine Nitrite Positive H, Urine Bilirubin Negative, Urine Urobilinogen Normal, Ur Leukocyte Esterase 100 H, Urine RBC 5-10 SEEN, Urine WBC 0-5 SEEN, Ur Squamous Epith Cells 0 SEEN, Amorphous Sediment 3+ URATE, Urine Bacteria 1+, Hyaline Casts 0-5 SEEN, Coarse Granular Casts 0-5 SEEN, Urine Mucus 0 SEEN, Urine Opiates Screen POSITIVE H, Urine Methadone Screen NEGATIVE, Ur Barbiturates Screen NEGATIVE, Ur Phencyclidine Scrn NEGATIVE, Ur Amphetamines Screen NEGATIVE, MDMA (Ecstasy) Screen NEGATIVE, U Benzodiazepines Scrn NEGATIVE, Urine Cocaine Screen NEGATIVE, U Cannabinoids Screen NEGATIVE 01/02/24 15:08: CSF Appearance CLEAR, CSF Color COLORLESS, CSF WBC 28 H, CSF RBC 11 H, CSF Cell Count Tube # 1, CSF Total Cell Counted Not Reportable, CSF Neutrophils 88 H, CSF Lymphocytes 7 L, CSF Monocytes 6 L, CSF Comment May follow, CSF Glucose 41, CSF Total Protein 184.0 H 01/02/24 17:00: Ammonia < 11.0 L Microbiology: Microbiology 01/02/24 13:40 Urine, Catheterized Urine Culture - Preliminary Staphylococcus aureus 01/02/24 15:08 Csf, Spinal Fluid Gram Stain - Final 01/02/24 14:00 Blood Culture (Wb) - Anticubital Left Blood Culture - Preliminary Staphylococcus aureus 01/02/24 14:00 Blood Culture (Wb) - Right Hand Bacteria Detection (PCR) - Final Staphylococcus aureus 01/02/24 14:00 Blood Culture (Wb) - Right Hand Blood Culture - Preliminary Staphylococcus aureus 01/02/24 14:00 Mucosa - Nose SARS-CoV-2, Influenza & RSV (PCR) - Final ABG: ABG 01/02/24 14:49 Specimen Type ART Sample Site R Fem pH 7.57 H Bicarbonate Actual 24.7 Total CO2 26 Base Excess 3 H O2 Saturation 98 O2 % 21.0 ABG pCO2 26.8 L ABG pO2 79 O2 Delivery Device Not entered Vent Mode Not entered Radiography Diagnostic Testing: Radiology Impression Brain CT 01/02/24 13:32 IMPRESSION: Chronic involutional changes of the brain. Electronically Signed: Selvin Thompson MD at 14:10 EST , Chest X-Ray 01/02/24 14:32 IMPRESSION: Hyperinflation. Findings suggestive of a 2.2 cm x 1.5 cm nodule in the medial right upper lobe. Correlation with CT scan is recommended. Electronically Signed: Selvin Thompson MD at 14:54 EST , Abdomen/Pelvis CT 01/02/24 15:19 IMPRESSION: 1. 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 2. Marked diffuse fecal retention. 3. Mild atelectasis or infiltrate in the left lung base since previous study. Electronically Signed: Naldo Turk MD at 16:47 EST , D/C Instructions DC O2, CPAP, BIPAP Needs Additional Home O2 Discharge instructions: No DC home with Oxygen: No Meaningful Use Info Meaningful Use Meaningful Use Diagnoses (Choose all that apply): None applicable Ischemic Stroke Statin Dosing Therapy Reference: STATIN DOSE THERAPY REFERENCE: * Patients > 75 years receive moderate or high dose statin therapy. * Patients 75 years or YOUNGER should receive HIGH intensity statin dose unless contraindicated. You will be required to document reason for non-treatment if statin daily dose does not meet guidelines. HIGH DOSE STATIN THERAPY DAILY Atorvastatin > than or = to 40 mg Rosuvastatin > than or = to 20 mg Amlodipine + Atorvastatin > than or = to 2.5/40 mg Ezetimibe + Simvastatin 10/80 mg Simvastatin 80mg Discharge Plan Admission Admit Date/Time: 01/02/24 19:08 Attending Provider: Raman Lugo Primary Care Provider: Madeline Kuhn Consulting Providers: Pia Dotson Discharge Orders/Prescriptions Prescriptions: No Action oxycodone-acetaminophen 5-325 mg tablet 1 tab PO BID PRN (Reason: pain) oxybutynin chloride 5 mg tablet extended release 24hr 5 mg PO DAILY omeprazole 10 mg capsule,delayed release(DR/EC) 10 mg PO DAILY levothyroxine 75 mcg tablet 75 mcg PO DAILY meloxicam 15 mg tablet 15 mg PO DAILY sennosides-docusate sodium [Stimulant Laxative Plus] 8.6-50 mg Tablet 2 tab PO BID PRN (Reason: constipation) Rx Instructions: [id number] pain aspirin 81 mg Tablet,Chewable 81 mg PO BREAKFAST 90 Days Qty: 90 0RF prednisone 10 mg tablet 30 mg PO DAILY pantoprazole 20 mg tablet,delayed release (DR/EC) 20 mg PO DAILY Referrals / Follow Up: Madeline uKhn, ASSOCIATE PROGRAM MANAGER [Primary Care Provider] - Disposition Disposition (needs filled in before D/C Order can be placed): Hospice in Medical Facility Charges/Coding Visit Charges Inpatient E&M: 89202 Disch Hosp >30min
[2024-01-03 14:13] VITALS: BP 94/53; PULSE 62; RESP 18; TEMP 36.4; O2SAT 93
[2024-01-03 14:39] VITALS: BP 94/53; PULSE 62; RESP 16; TEMP 36.4; O2SAT 93
--- NOTE | 2024-01-03 16:00 | CHAPLAIN ---
Type of Pastoral Visit ___ Initial Visit ___ Follow-up Visit ___ On-call Visit ___ General Patient Visit ___ Spiritual Assessment _x__ Family Conference ___ Bereavement ___ Rapid Response ___ Code Blue ___ Other (describe below) Pastoral Care Referral From ___ Patient ___ Family ___ Nurse ___ Physician ___ Oiler Bander ___ Ecological Risk Assessor _x__ Other (describe below) Sacrament/Intervention ___ Active listening ___ Anointing ___ Orthodox ___ Bereavement ___ Communion ___ Brittney exploration ___ ___ Life review ___ Prayer ___ Reconciliation ___ Sacrament of Sick _x__ Supportive presence ___ Wedding ___ Other (describe below) Pastoral Comments this patient was being consulted by hospice and was mentioned to this sponge maker to check on patient; found the patient sleeping and unable to communicate but son, granddaughter and her spouse were in the room; offered support and concern; family stated that patient was not yazidism and that she would not want anything done for her at this time but that they appreciated the kindness and offer of care; 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
[2024-01-06 17:07] LABS: Enterovirus By PCR Negative (Negative); HSV 1 By PCR Negative (Negative); HSV 2 By PCR Negative (Negative)
== END 2024-01-03 15:17 | disposition hospice, inpatient (51) ==
LOC: ED 15:23 → ICU 16:21 → MS3 19:44
PROVIDERS: Admitting Provider Internal Medicine; Emergency Provider Emergency Medicine; PCP Clinical Nurse Specialist Adult Health; Visit Provider Internal Medicine
DX: A41.9 Sepsis, unspecified organism (principal); R65.20 Severe sepsis without septic shock; E87.1 Hypo-osmolality and hyponatremia; Z79.82 Long term (current) use of aspirin; E87.20 Acidosis, unspecified; R53.81 Other malaise; I10 Essential (primary) hypertension; E03.9 Hypothyroidism, unspecified; E80.6 Other disorders of bilirubin metabolism; M54.16 Radiculopathy, lumbar region; D69.6 Thrombocytopenia, unspecified; E87.6 Hypokalemia; G06.2 Extradural and subdural abscess, unspecified; G92.8 Other toxic encephalopathy; L89.891 Pressure ulcer of other site, stage 1; G89.29 Other chronic pain; Z79.899 Other long term (current) drug therapy; Z79.890 Hormone replacement therapy; R91.1 Solitary pulmonary nodule; K21.9 Gastro-esophageal reflux disease without esophagitis; N32.81 Overactive bladder; Z79.52 Long term (current) use of systemic steroids; R79.89 Other specified abnormal findings of blood chemistry
CPT/HCPCS: 36415; 36600; 51702; 62270; 70450; 71045; 74177; 80053; 80307; 81001; 82077; 82140; 82803; 82945; 82962; 83605; 83690; 83735; 84100; 84145; 84157; 84443; 85025; 85379; 85384; 85610; 85652; 85730; 86140; 87040; 87070; 87077; 87086; 87088; 87149; 87186; 87205; 87498; 87529; 87631; 89050; 89051; 93005; 96361; 96365; 96366; 96367; 96375; 96376; 99152; 99221; 99252; 99285; J7030; J7050; Q9967; A4216; G0378; G0463; J0696; J2405